=== PATIENT | male | born 1950 | race African-American/Black ===

== ENCOUNTER 2016-05-01 11:18 | Emergency (ER) | payer MEDICARE ==
[2016-02-14 11:40] VITALS: BMI 27.0
[~2016-05-01 11:18] MED LIST: ADVIL200 MG PO; BUMEX 1 MG TAB1 MG PO; HYDROCODONE-APA1 TAB PO; IPRAT-ALBUT 0.5-3 ML; K-DUR20 MEQ PO; LANOXIN250 MCG PO; LANTUS INSULIN10 ML SC; LASIX40 MG PO; LEVAQUIN500 MG PO; LOTENSIN40 MG PO; MIRALAX17 GM PO; MUCINEX1200 MG/BO PO; NORVASC5 MG PO; PRAVACHOL80 MG PO; PRILOSEC20 MG PO; PROAIR HFA8.5 GM INH; PROVENTIL/2.5 MG/3 M NEB; ULTRAM50 MG PO
[2016-05-01 12:16] LABS: BASOPHILS 0.2 % (0.0-2.0); EOSINOPHILS 0.1 % (0-7); HEMATOCRIT 48.4 % (42.0-54.0); IMMATURE GRANULOCYTES 0.3 % (0-5); LYMPHOCYTES 10.9 % (15-50); MCH 31.2 pg (26.0-34.0); MCHC 33.1 g/dL (31.0-37.0); MCV 94.3 fL (80.0-100.0); MEAN PLATELET VOLUME 10.3 fL (7.4-10.4); MONOCYTES 6.6 % (2-11); NEUTROPHILS 81.9 % (40-80); PLATELET COUNT 209 10x3/uL (130-400); RBC 5.13 10x6/uL (4.20-6.10); RDW 14.4 % (11.5-14.5)
[2016-05-01 12:29] LABS: ALBUMIN 3.9 g/dL (3.4-5.0); ALKALINE PHOSPHATASE 67 U/L (46-116); ALT (SGPT) 17 U/L (10-68); AMYLASE - SERUM 61 U/L (25-115); BILIRUBIN - TOTAL 1.23 mg/dL (0.2-1.3); CALC OSMOLALITY 285 mosm/kg (275-300); CALCIUM 9.6 mg/dL (8.5-10.1); CARBON DIOXIDE 34.2 mmol/L (21.0-32.0); CHLORIDE - SERUM 102 mmol/L (98-107); GLUCOSE 100 mg/dL (74-106); LIPASE 96 U/L (73-393); POTASSIUM - SERUM 4.2 mmol/L (3.5-5.1); PROTEIN - SERUM 7.8 g/dL (6.4-8.2); SODIUM 144 mmol/L (136-145); UREA NITROGEN 11 mg/dL (7-18); eGFR NON AFRICAN AMERICAN 80 mL/min (90-120)
[2016-05-01 12:34] LABS: APPEARANCE CLEAR (CLEAR); BACTERIA FEW /hpf (NONE SEEN); BILIRUBIN NEGATIVE (NEGATIVE); COLOR DK YELLOW (YELLOW); EPITHELIAL CELLS OCC /hpf (0-5); GLUCOSE NEGATIVE (NEGATIVE); KETONE LARGE mg/dL (NEGATIVE); LEUKOCYTE ESTERASE TRACE (NEGATIVE); MUCUS >1+ /lpf (NONE SEEN); NITRITE NEGATIVE (NEGATIVE); PROTEIN NEGATIVE (NEGATIVE); RED CELLS - URINE RARE /hpf (0-5); SPECIFIC GRAVITY 1.015 (1.005-1.020); WHITE CELLS - URINE OCC /hpf (0-5)
[2016-05-01 14:29] LABS: PRO BNP 36 pg/mL (0-125)
[2016-05-01 14:42] LABS: TROPONIN-I < 0.017 ng/mL (0.000-0.060)
== END 2016-05-01 16:47 | disposition home or self-care (01) ==
LOC: D.ER 11:18
PROVIDERS: Emergency Medicine
DX: J44.1 Chronic obstructive pulmonary disease with (acute) exacerbation (principal); R11.10 Vomiting, unspecified; I10 Essential (primary) hypertension; I50.9 Heart failure, unspecified; E11.9 Type 2 diabetes mellitus without complications; Z79.4 Long term (current) use of insulin

== ENCOUNTER → 2016-06-01 09:59 | Outpatient (CLI) | payer MEDICARE ==
[2016-02-14 11:40] VITALS: BMI 27.0
== END | disposition home or self-care (01) ==
LOC: D.CT 09:59
DX: C34.90 Malignant neoplasm of unspecified part of unspecified bronchus or lung (principal)

== ENCOUNTER → 2016-07-24 09:00 | Outpatient (CLI) | payer MEDICARE ==
[2016-02-14 11:40] VITALS: BMI 27.0
== END | disposition home or self-care (01) ==
LOC: D.CT 09:00
DX: C34.90 Malignant neoplasm of unspecified part of unspecified bronchus or lung (principal)

== ENCOUNTER → 2016-09-26 07:51 | Outpatient (CLI) | payer MEDICARE ==
[2016-02-14 11:40] VITALS: BMI 27.0
== END | disposition home or self-care (01) ==
LOC: D.US 07:51
DX: R11.2 Nausea with vomiting, unspecified (principal); R10.11 Right upper quadrant pain

== ENCOUNTER 2016-09-28 19:21 | Inpatient (IN) | payer MEDICARE ==
[~2016-09-28] VITALS: Ht 170.2 cm; Wt 81.2 kg
--- NOTE | ~2016-09-28 | HEMODYNAMI ---
PATIENT:SYL BHAT MEDICAL RECORD: [id number] : 50 LOCATION: D.2208 ADMISSION DATE: 09/28/16 Generatedon:10/01/201614:16 Patient name: SYL BHAT Patient #: [id number] SSN: : Date of study: 10/01/2016 Page: Of Hemodynamic Procedure Report Patient Data Patient Demographics Procedure consent was obtained First Name: SYL Gender: Male Last Name: PERLITA : 1950 [facility] Initial: JORDON Age: 65 year(s) Patient #: [id number] Race: Black Additional ID: [id number] Contact details Address: [address] [place] [address] STREET State: [place] City: [facility] Zip code: [address] Past Medical History Allergies: No known allergies Admission Admission Data Admission Date: 09/28/2016 Admission Time: 21:55 Room #: D.2208 Weight (lbs.): 178 Weight (kg.): 80.74 Procedure Procedure Types Cath Procedure Peripheral Cath Diagnostic Procedure Cath Peripheral Biliary Percutaneous Biliary Int/Ext Drain Placement Procedure Description Procedure Date Procedure Date: 10/01/2016 Procedure Start Time: 12:47 Procedure Staff Name Function Becky Roy RT Hand Paster Becky Roy RT Monitor Perla Goldman RT Scrub Agapito Rodriguez MD Additional personnel Perla Lew RN Nurse Skinny Kebede MD Performing Physician Procedure Data Cath Procedure Fluoroscopy Diagnostic fluoroscopy Total fluoroscopy Time: time: 21.5 min 21.5 min Diagnostic fluoroscopy Total fluoroscopy dose: dose: 1061 mGy 1061 mGy Contrast Material Contrast Material Type Amount (ml) Isovue 300 85 Diagnostic catheters Device Type Used For End Catheter Placement Merit Impress KA 2 5Fr 40CM catheter Procedure Medications Medication Administration Route Dosage Oxygen NC 6 l/min Lidocaine 1% added to field 20 Heparin Flush Bag added to field 2 bags (1000units/500ml NS) 0.9% NaCl I.V. 100 ml/hr Hemodynamics Rest Heart Rate: 78 (bpm) Snapshots Pre Cath Intra NCS Post Cath Vital Signs Time Heart Resp SPO2 NIBP (mmHg) Rhythm Pain Sedation Rate (ipm) (%) Status Level (bpm) 12:03:34 80 0 96 139/84(114) NSR 0 (11) 10(A) , No pain 12:07:54 82 17 141/79(110) NSR 0 (11) 10(A) , No pain 12:12:10 83 22 97 142/83(117) NSR 0 (11) 10(A) , No pain 12:16:26 76 17 97 138/89(123) NSR 0 (11) 10(A) , No pain 12:20:46 80 22 98 144/83(116) NSR 0 (11) 10(A) , No pain 12:25:05 82 11 98 125/74(98) NSR 0 (11) 10(A) , No pain 12:29:19 84 12 95 111/67(93) NSR 0 (11) 10(A) , No pain 12:33:30 82 14 96 118/74(96) NSR 0 (11) 10(A) , No pain 12:37:44 81 14 97 114/76(86) NSR 0 (11) 10(A) , No pain 12:41:58 80 13 97 118/74(93) NSR 0 (11) 10(A) , No pain 12:46:12 81 14 97 112/64(90) NSR 0 (11) 10(A) , No pain 12:50:26 84 14 96 111/70(86) NSR 0 (11) 10(A) , No pain 12:54:32 88 11 93 103/71(86) NSR 0 (11) 10(A) , No pain 12:58:44 84 9 94 107/68(87) NSR 0 (11) 10(A) , No pain 13:02:58 79 19 96 105/65(80) NSR 0 (11) 10(A) , No pain 13:07:12 83 10 94 106/58(77) NSR 0 (11) 10(A) , No pain 13:11:32 71 7 98 58/47(53) NSR 0 (11) 10(A) , No pain 13:12:58 75 15 98 66/34(51) NSR 0 (11) 10(A) , No pain 13:17:06 56 12 99 69/33(49) NSR 0 (11) 10(A) , No pain 13:21:14 58 9 97 53/39(50) NSR 0 (11) 10(A) , No pain 13:25:16 53 9 98 68/35(51) NSR 0 (11) 10(A) , No pain 13:30:04 60 11 98 61/37(54) NSR 0 (11) 10(A) , No pain 13:34:08 54 13 98 67/37(53) NSR 0 (11) 10(A) , No pain 13:38:16 58 13 97 56/29(44) NSR 0 (11) 10(A) , No pain 13:42:17 53 12 96 59/34(44) NSR 0 (11) 10(A) , No pain 13:46:21 55 13 94 54/32(43) NSR 0 (11) 10(A) , No pain 13:50:23 52 14 92 60/33(45) NSR 0 (11) 10(A) , No pain 13:54:29 47 23 96 48/34(39) NSR 0 (11) 10(A) , No pain 13:58:28 61 16 95 63/35(42) NSR 0 (11) 10(A) , No pain 14:02:34 54 18 96 58/37(48) NSR 0 (11) 10(A) , No pain 14:06:44 55 32 98 67/40(58) NSR 0 (11) 10(A) , No pain 14:11:27 62 34 115/97(111) NSR 0 (11) 10(A) , No pain Medications Time Medication Route Dose Verified Delivered Reason Notes Effe ctiveness by by 12:23:58 Oxygen NC 6 Agapito Altman used for l/min Jennifer Rodriguez MD procedure 12:24:08 Lidocaine 1% added 20ml Perla Perla used for to vial Vipin Vipin procedure field RN RN 12:24:18 Heparin Flush added 2 Perla Perla used for Bag to bags Vipin Vipin procedure (1000units/500ml field RN RN NS) 12:24:56 0.9% NaCl I.V. 100 Perla Perla used for ml/hr Vipin Vipin vacation sales advisor alternative energy technician Log Time Note 11:39:23 Patient Weight : 178 kg 11:39:26 Time tracking: Regular hours 11:46:20 Signed procedure consent form obtained from patient. 11:46:28 H&P Date Dictated: 10/01/2016 Within 30 days and on chart.. 11:46:56 Pre-procedure instructions explained to patient. 11:46:57 Pre-op teaching completed and patient verbalized understanding. 11:47:00 Family unavailable. 11:47:21 Patient NPO since Midnight. 11:47:33 Patient allergic to No known allergies 11:47:44 Is patient on blood thinner?No 11:47:48 - 11:47:58 Use device set IR Diagnostic 11:47:59 Sterile Angiographic Pack opened to sterile field. 11:48:00 Bag Decanter opened to sterile field. 11:48:29 KIT, INTRODUCER ACCUSTICK II W/C opened to sterile field. 12:02:23 ECG and BP/O2 sat monitors applied to patient. 12:02:24 Vital chart was started 12:02:25 Baseline sample Acquired. 12:02:26 Full Disclosure recording started 12:02:27 - 12:11:04 see anesthesia notes for monitoring of patient during procedure 12:11:31 Right abdomen site verified by team. 12:11:37 Physical assessment completed. ASA score P 4 - A patient with severe systemic disease that is a constant threat to life as per Agapito Rodriguez MD. 12:11:43 Sedation plan: TIVA Propofol 12:23:58 Oxygen 6 l/min NC was administered by Agapito Rodriguez MD; used for procedure ; 12:24:08 Lidocaine 1% 20ml vial added to field was administered by Perla Lew RN; used for procedure; 12:24:18 Heparin Flush Bag (1000units/500ml NS) 2 bags added to field was administered by Perla Lew RN; used for procedure; 12:24:56 0.9% NaCl 100 ml/hr I.V. was administered by Perla Lew RN; used for procedure; 12:44:34 Physician arrived 12:46:48 --------ALL STOP TIME OUT------ 12:46:49 Final Timeout: patient, procedure, and site verified with staff and physician. All members of the team are in agreement. 12:47:04 Procedure started. 12:47:14 Local anesthetic to Abdominal area with Lidocaine 1% by Skinny Kebede MD.INITIAL ACCESS ONLY 13:02:19 CHIBA 22 X 15 needle opened to sterile field. 13:14:23 Terumo ANGLE 180L glide wire opened to sterile field. 13:18:47 Telelogos DOC .035 guide wire opened to sterile field. 13:19:21 A Merit Impress KA 2 5Fr 40CM catheter was advanced over the wire and used for . 13:29:06 CHIBA 22 X 15 needle opened to sterile field. 13:37:06 EV3 NITINOL .018 80CM guide wire opened to sterile field. 13:50:32 Terumo Angled SS 180cm glide wire opened to sterile field. 13:53:18 DILATOR, VESSEL 8/20 opened to sterile field. 13:53:19 DILATOR, VESSEL 10/20 opened to sterile field. 13:53:20 Cook BILIARY 10.2 FR drainage catheter opened to sterile field. 13:54:14 BAG, DRAINAGE EMPTY 600ML W/DENIS opened to sterile field. 13:55:40 STOPCOCK 3-WAY LARGE BORE opened to sterile field. 13:58:40 Procedure ended.(Physican Out) 13:59:01 Fluoroscopy time 21.50 minutes. 13:59:08 Fluoroscopy dose: 1061 mGy 13:59:08 Flurop Dose total: 1061 14:00:54 Contrast amount:Isovue 300 85ml. 14:00:56 Sharps counted by scrub and verified by RMarkelNMarkel 14:01:01 Procedure and supply charges have been captured, reviewed, submitted an d are correct. 14:03:31 Vital chart was stopped 14:03:35 Full Disclosure recording stopped Device Usage Item Name Manufacture Quantity Catalog Hospital Part Current Minimal Lot# / Number Charge Number Stock Stock Serial# Code Mora Mina [id number] 5 Angiographic Health Pack Bag Decanter Microtek 1 2001S [id number] 39638 [id number] 5 Medical Inc. KIT, [place] 1 [id number] 685402 009804 353879 5 INTRODUCER Scientific ACCUSTICK II W/C CHIBA 22 X Cook Medical 1 [id number] 937195 247198 5 15 needle Terumo ANGLE Terumo 1 [id number] 439049 161756 174222 5 180L glide wire Cook DOC Cook Medical 1 [id number] 686840 387595 5 [id number] .035 guide wire Merit Merit 1 [id number] 116043 746620 5 Impress KA 2 Medical 5Fr 40CM catheter EV3 NITINOL Ev3 1 [id number] 803853 967987 5 .018 80CM guide wire Terumo Terumo 1 [id number] 998695 448393 5 Angled SS 180cm glide wire DILATOR, Cook Medical 1 [id number] 590724 50340 864315 5 VESSEL 8/20 DILATOR, Cook Medical 1 L04250 222198 35672 421478 5 VESSEL 10/20 Cook BILIARY Cook Medical 1 [id number] 779263 373127 695478 5 10.2 FR drainage catheter BAG, Merit 1 [id number] 854938 741427 003997 5 DRAINAGE Medical EMPTY 600ML W/DENIS STOPCOCK Cook Medical 1 [id number] 252276 6042 828832 5 [id number] 3-WAY LARGE BORE Signature Audit [place] Stage Time Signature Unsigned Intra-Procedure 10/01/2016 Becky Roy RT(R) 2:03:29 PM RT(R) 10/01/2016 2:05:31 PM Intra-Procedure 10/01/2016 Becky Roy 2:16:17 PM RT(R) Signatures Monitor : Becky Roy RT Signature : Date : Time : [address] [place] [address]
--- NOTE | ~2016-09-28 | HEMODYNAMI ---
PATIENT:SYL BHAT MEDICAL RECORD: [id number] : 50 LOCATION:[place] D.2208 ADMISSION DATE: 09/28/16 Generatedon:10/12/201612:53 Patient name: SYL BHAT Patient #: [id number] SSN: : Date of study: 10/12/2016 Page: Of Hemodynamic Procedure Report Patient Data Patient Demographics Procedure consent was obtained First Name: SYL Gender: Male Last Name: PERLITA : 1950 [facility] Initial: JORDNO Age: 65 year(s) Patient #: [id number] Race: Black Additional ID: [id number] Contact details Address: [address] [place] [address] STREET State: [place] City: [facility] Zip code: [address] Past Medical History Allergies: No known allergies Admission Admission Data Admission Date: 09/28/2016 Admission Time: 21:55 Room #: D.2208 Weight (lbs.): 178 Weight (kg.): 80.74 Procedure Procedure Types Cath Procedure Peripheral Cath Diagnostic Procedure Cath Peripheral Liver Percutaneous Liver Biopsy Procedure Description Procedure Date Procedure Date: 10/12/2016 Procedure Start Time: 11:50 Procedure Staff Name Function Skinny Kebede MD Performing Physician Saleem Pyle RIG OPERATOR Additional personnel Nitin Almonte RT Scrub Shana Chandler RN Nurse Becky Roy RT Personal Financial Representative Becky Roy RT Monitor Procedure Data Cath Procedure Fluoroscopy Diagnostic fluoroscopy Total fluoroscopy Time: 7.5 time: 7.5 min min Diagnostic fluoroscopy Total fluoroscopy dose: 319 dose: 319 mGy mGy Contrast Material Contrast Material Type Amount (ml) Isovue 300 52 Hemodynamics Rest Heart Rate: 83 (bpm) Snapshots Pre Cath Intra NCS Post Cath Vital Signs Time Heart Resp SPO2 NIBP Rhythm Pain Sedation Rate (ipm) (%) (mmHg) Status Level (bpm) 11:24:27 77 11 100 99/67(83) NSR 0 (11) 10(A) , No pain 11:28:49 91 5 96 82/50(70) NSR 0 (11) 10(A) , No pain 11:32:53 87 2 97 83/60(65) NSR 0 (11) 10(A) , No pain 11:37:01 91 7 100 83/50(68) NSR 0 (11) 10(A) , No pain 11:41:09 92 7 100 77/52(67) NSR 0 (11) 10(A) , No pain 11:45:12 92 7 100 80/55(59) NSR 0 (11) 10(A) , No pain 11:49:18 92 7 100 81/52(60) NSR 0 (11) 10(A) , No pain 11:53:26 90 8 100 70/46(61) NSR 0 (11) 10(A) , No pain 11:57:21 85 13 100 84/68(74) NSR 0 (11) 10(A) , No pain 12:01:27 86 13 99 95/58(67) NSR 0 (11) 10(A) , No pain 12:05:37 74 14 100 82/56(64) NSR 0 (11) 10(A) , No pain 12:09:45 75 10 99 66/45(56) NSR 0 (11) 10(A) , No pain 12:13:45 71 11 99 83/53(66) NSR 0 (11) 10(A) , No pain 12:17:52 69 16 86 84/48(77) NSR 0 (11) 10(A) , No pain 12:22:01 72 12 99 80/52(67) NSR 0 (11) 10(A) , No pain 12:25:38 72 14 100 86/61(68) NSR 0 (11) 10(A) , No pain 12:29:33 72 17 100 84/53(70) NSR 0 (11) 10(A) , No pain 12:33:35 69 18 100 98/67(83) NSR 0 (11) 10(A) , No pain 12:37:45 72 18 100 94/59(79) NSR 0 (11) 10(A) , No pain 12:41:52 71 17 100 86/58(73) NSR 0 (11) 10(A) , No pain 12:45:58 73 16 100 90/58(74) NSR 0 (11) 10(A) , No pain 12:50:04 72 18 100 91/59(70) NSR 0 (11) 10(A) , No pain 12:51:44 72 22 100 87/63(73) NSR 0 (11) 10(A) , No pain Procedure Log Time Note 10:51:35 Patient Weight : 178 kg 11:15:38 Time tracking: Regular hours 11:22:44 Plan of Care:Hemodynamics will remain stable., Cardiac rhythm will remain stable., Comfort level will be maintained., Respiratory function will remain adequate., Patient/ family verbilizes understanding of procedure., Procedure tolerated without complication., Recovers from procedure without complications.. 11:23:07 Patient received from Med/Surg to IR Alert and oriented. Tansferred to table in Supine position. 11:23:11 Correct patient and procedure confirmed by team. 11:23:13 Signed procedure consent form obtained from patient. 11:23:15 ECG and BP/O2 sat monitors applied to patient. 11:23:16 Vital chart was started 11:23:17 Baseline sample Acquired. 11:23:19 Full Disclosure recording started 11:23:19 - 11:23:25 H&P Date Dictated: 10/12/2016 Within 30 days and on chart.. 11:23:29 Family unavailable. 11:23:32 Patient NPO since Midnight. 11:23:41 - 11:23:45 Use device set IR Diagnostic 11:23:47 Sterile Angiographic Pack opened to sterile field. 11:23:48 Bag Decanter opened to sterile field. 11:24:14 Cook BILIARY 10.2 FR drainage catheter opened to sterile field. 11:27:17 St Neto 10FR 23CM sheath opened to sterile field. 11:38:08 Terumo Angled SS 180cm glide wire opened to sterile field. 11:49:15 - 11:49:23 Physician arrived 11:49:39 --------ALL STOP TIME OUT------ 11:49:40 Final Timeout: patient, procedure, and site verified with staff and physician. All members of the team are in agreement. 11:50:10 Physical assessment completed. ASA score P 3 - A patient with severe systemic disease as per Saleem Pyle CRNA. 11:50:16 Sedation plan: TIVA Propofol 11:50:22 Procedure started. 11:50:30 Local anesthetic to Abdominal area with Lidocaine 1% by Skinny Kebede MD.INITIAL ACCESS ONLY 11:53:11 Terumo TORQUE DEVICE PLASTIC .038 opened to sterile field. 12:15:17 see anesthesia notes of monitoring of patient during procedure 12:17:12 several brush and forcep bx were taken 12:19:43 STOPCOCK 3-WAY LARGE BORE opened to sterile field. 12:23:01 BAG, DRAINAGE EMPTY 600ML W/DENIS opened to sterile field. 12:23:28 new biliary drain was placed 12:23:38 Procedure ended.(Physican Out) 12:24:00 Fluoroscopy time 07.50 minutes. 12:24:08 Flurop Dose total: 319 12:24:08 Fluoroscopy dose: 319 mGy 12:24:23 Contrast amount:Isovue 300 52ml. 12:24:25 Sharps counted by scrub and verified by RMarkelN. 12:27:24 Procedure and supply charges have been captured, reviewed, submitted an d are correct. 12:53:03 Vital chart was stopped Device Usage Item Name Manufacture Quantity Catalog Hospital Part Current Minimal Lot# / Number Charge Number Stock Stock Serial# Code Sterile Cardinal 1 [id number] [id number] 5 Angiographic Health Pack Bag Decanter Microtek 1 2002S 293293 82509 584960 5 Medical Inc. Cook BILIARY Cook Medical 1 [id number] 045901 153265 198771 5 10.[address] Neto [address] St Neto 1 940037 639729 520142 5 23CM sheath Terumo Terumo 1 [id number] 434581 001251 5 Angled SS 180cm glide wire Terumo [place] 1 TD01 501535 699121 848907 5 Curverider Scientific DEVICE PLASTIC .038 STOPCOCK Cook Medical 1 [id number] 788245 3674 285153 5 3-WAY LARGE BORE BAG, Merit 1 [id number] 439560 182146 033306 5 DRAINAGE Medical EMPTY 600ML W/DENIS Signature Audit [place] Stage Time Signature Unsigned Intra-Procedure 10/12/2016 Becky Roy 12:53:00 PM RT(R) Signatures Monitor : Becky Roy RT Signature : Date : Time : [address] [place] [address]
--- NOTE | ~2016-09-28 | HEMODYNAMI ---
PATIENT:SYL BHAT MEDICAL RECORD: [id number] : 50 LOCATION:D.MS [place]2208 ADMISSION DATE: 09/28/16 Generatedon:10/05/201613:20 Patient name: SYL BHAT Patient #: [id number] SSN: : Date of study: 10/05/2016 Page: Of Hemodynamic Procedure Report Patient Data Patient Demographics First Name: SYL Gender: Male Last Name: PERLITA : 1950 [facility] Initial: JORDON Age: 65 year(s) Patient #: [id number] Race: Black Additional ID: [id number] Contact details Address: [address] [place] [address] STREET State: [place] City: [facility] Zip code: [address] Past Medical History Allergies: No known allergies Admission Admission Data Admission Date: 09/28/2016 Admission Time: 21:55 Room #: D.2208 Weight (lbs.): 178 Weight (kg.): 80.74 Procedure Procedure Types Cath Procedure Peripheral Cath Diagnostic Procedure Miscellaneous Procedure Description Procedure Date Procedure Date: 10/05/2016 Procedure Start Time: 12:30 Procedure Staff Name Function Perla Goldman RT Scrub Nitin Almonte RT Monitor Skinny Kebede MD Performing Physician Shana Chandler RN Nurse Procedure Data Cath Procedure Fluoroscopy Diagnostic fluoroscopy Total fluoroscopy Time: 5.3 time: 5.3 min min Diagnostic fluoroscopy Total fluoroscopy dose: 122 dose: 122 mGy mGy Contrast Material Contrast Material Type Amount (ml) Isovue 300 28 Hemodynamics Rest Heart Rate: 83 (bpm) Snapshots Pre Cath Intra NCS Post Cath Vital Signs Time Heart Resp SPO2 NIBP Rhythm Pain Sedation Rate (ipm) (%) (mmHg) Status Level (bpm) 12:19:58 81 98 113/70(95) NSR 0 (11) 10(A) , No pain 12:24:06 82 98 108/75(96) NSR 0 (11) 10(A) , No pain 12:28:09 99 27 97 111/85(91) NSR 0 (11) 10(A) , No pain 12:32:21 101 19 93 101/63(75) NSR 0 (11) 10(A) , No pain 12:36:27 88 12 90 96/61(75) NSR 0 (11) 10(A) , No pain 12:40:35 85 12 90 89/54(69) NSR 0 (11) 10(A) , No pain 12:44:45 78 12 97 81/46(60) NSR 0 (11) 10(A) , No pain 12:48:50 80 12 76/47(55) NSR 0 (11) 10(A) , No pain 12:52:59 62 14 98 65/38(46) NSR 0 (11) 10(A) , No pain 12:57:02 74 11 99 72/40(55) NSR 0 (11) 10(A) , No pain 13:01:06 72 10 99 75/42(62) NSR 0 (11) 10(A) , No pain 13:05:11 73 9 97 74/44(57) NSR 0 (11) 10(A) , No pain 13:08:47 73 98 72/42(62) NSR 0 (11) 10(A) , No pain 13:10:35 72 0 97 69/48(58) NSR 0 (11) 10(A) , No pain 13:17:53 71 97 74/49(61) NSR 0 (11) 10(A) , No pain 13:20:11 70 97 80/50(63) NSR 0 (11) 10(A) , No pain Procedure Log Time Note 11:23:00 Patient Weight : 178 kg 12:08:38 Nitin Almonte RT (R) (CV) sent for patient. Start room use. 12:08:46 Time tracking: Regular hours 12:08:51 Plan of Care:Hemodynamics will remain stable., Cardiac rhythm will remain stable., Comfort level will be maintained., Respiratory function will remain adequate., Patient/ family verbilizes understanding of procedure., Procedure tolerated without complication., Recovers from procedure without complications.. 12:08:58 Patient received from Med/Surg to IR Alert and oriented. Tansferred to table in Supine position. 12:09:00 - 12:09:18 SEE ANESTHESIA FOR PRE PROCEDURE NOTE 12::20 - 12::27 Use device set IR Diagnostic 12:: Bag Decanter opened to sterile field. 12:: Sterile Angiographic Pack opened to sterile field. 12::49 Right abdomen area was prepped with chlora-prep and draped in sterile fashion 12::53 Vital chart was started 12::54 Baseline sample Acquired. 12:18:58 Rhythm: sinus rhythm 12:23:36 Zero performed for pressure channel P1 12:29:31 --------ALL STOP TIME OUT------ 12:29:32 Final Timeout: patient, procedure, and site verified with staff and physician. All members of the team are in agreement. 12:29:38 Right abdomen site verified by team. 12:29:43 Physical assessment completed. ASA score P 3 - A patient with severe systemic disease as per Skinny Kebede MD. 12:29:59 Sedation plan: TIVA Propofol 12:30:04 Full Disclosure recording started 12:30:04 Procedure started. 12:30:11 Local anesthetic to Abdominal area with Lidocaine 1% by Skinny Kebede MD.INITIAL ACCESS ONLY 12:31:52 Terumo Angled SS 180cm glide wire opened to sterile field. 12::53 STOPCOCK 3-WAY LARGE BORE opened to sterile field. 12:31:54 Cook BILIARY 10.2 FR drainage catheter opened to sterile field. 12:31:55 BAG, DRAINAGE EMPTY 600ML W/DENIS opened to sterile field. 12:49:46 St Neto 10FR 23CM sheath opened to sterile field. 12:49:50 St Neto 10FR 23CM sheath opened to sterile field. 12:57:45 Procedure ended.(Physican Out) 12:58:34 Fluoroscopy time 05.30 minutes. 12:58:38 Fluoroscopy dose: 122 mGy 12:58:38 Flurop Dose total: 122 12:58:49 Contrast amount:Isovue 300 28ml. 12:58:51 Sharps counted by scrub and verified by R.N. 12:58:53 Insertion/operative site no bleeding no hematoma. 12:59:00 Post Abdominal area:stable 12:59:05 Post-procedure physical assessment completed. ASA score P 3 - A patient with severe systemic disease as per Skinny Kebede MD. 12:59:08 Post procedure rhythm: unchanged. 12:59:20 Post procedure instruction explained to patient.Patient verbalizes understanding. 12:59:22 Procedure and supply charges have been captured, reviewed, submitted an d are correct. 13:04:52 Report given to Med/Surg. 13:04:59 Patient transfered to Med/Surg with Bed. 13:06:31 Vital chart was stopped 13:06:34 Full Disclosure recording stopped Device Usage Item Name Manufacture Quantity Catalog Hospital Part Current Minimal Lot# / Number Charge Number Stock Stock Serial# Code Sterile Cardinal 1 [id number] 5 Angiographic Health Pack Bag Decanter Microtek 1 2001S [id number] 46656 410839 5 Medical Inc. Terumo Terumo 1 [id number] 120832 105750 5 Angled SS 180cm glide wire STOPCOCK Cook Medical 1 [id number] 096016 7869 [id number] 5 [id number] 3-WAY LARGE BORE Cook BILIARY Cook Medical 1 [id number] 292871 982805 022702 5 [id number] 10.2 FR drainage catheter BAG, Merit 1 [id number] 279389 959839 5 DRAINAGE Medical EMPTY 600ML W/DENIS St Neto 10FR St Neto 2 [id number] 563651 [id number] 5 23CM sheath Signature Audit [place] Stage Time Signature Unsigned Intra-Procedure 10/05/2016 Nitin Taveras Shuffield RT 1:06:29 PM Shuffield RT (R) (CV) 10/05/2016 (R) (CV) 1:07:41 PM Intra-Procedure 10/05/2016 Nitin 1:20:49 PM Suzy RT (R) (CV) Signatures Monitor : Nitin Signature : Suzy RT Date : Time : [address] [place] [address]
[2016-09-28 20:30] LABS: HEMATOCRIT 41.5 % (42.0-54.0); HEMOGLOBIN 15.6 g/dL (13.5-17.5); MCH 30.6 pg (26.0-34.0); MCHC 37.6 g/dL (31.0-37.0); MCV 81.4 fL (80.0-100.0); PLATELET COUNT 340 10x3/uL (130-400); RDW 19.5 % (11.5-14.5); WBC 22.9 10x3/uL (4.8-10.8)
[2016-09-28 20:49] LABS: ALBUMIN 2.5 g/dL (3.4-5.0); ALKALINE PHOSPHATASE 515 U/L (46-116); ALT (SGPT) 138 U/L (10-68); AMYLASE - SERUM 43 U/L (25-115); CALC OSMOLALITY 278 mosm/kg (275-300); CARBON DIOXIDE 38.1 mmol/L (21.0-32.0); CHLORIDE - SERUM 92 mmol/L (98-107); GLUCOSE 140 mg/dL (74-106); LIPASE 52 U/L (73-393); SODIUM 138 mmol/L (136-145); UREA NITROGEN 15 mg/dL (7-18); eGFR NON AFRICAN AMERICAN 80 mL/min (90-120)
[2016-09-28 20:50] LABS: BILIRUBIN - TOTAL 33.62 mg/dL (0.2-1.3); PROTEIN - SERUM 6.7 g/dL (6.4-8.2)
[2016-09-28 20:52] LABS: POTASSIUM - SERUM 2.4 mmol/L (3.5-5.1)
[2016-09-28 21:50] LABS: LYMPHOCYTES 6 % (15-50); NEUTROPHILS 94 % (40-80); PLATELET ESTIMATE NORMAL
[2016-09-28 23:56] VITALS: BP 105/71; BMI 28.1
--- NOTE | 2016-09-29 | NUR ---
PATIENT RECEIVED TO ROOM FROM ER VIA WHEELCHAIR WITH HOSPITAL STAFF. AAOX4. RR EVEN AND UNLABORED. O2 @ 2L VIA NC. 0 S/S OF DISTRESS. STATES PAIN IS AN 8/10. INITIATED MORPHINE MANAGER PRODUCTION PER ORDER. IV TO LEFT AC PATENT WITH NO REDNESS OR SWELLING. ORIENTED PATIENT TO ROOM, CALL LIGHT, AND MANAGER PRODUCTION. SRX2. BED LOW. CALL LIGHT WITHIN REACH.
[2016-09-29 04:00] VITALS: BP 90/60
--- NOTE | 2016-09-29 07:30 | NUR ---
RECIEVED PT DURING WALKING ROUNDS. PT RESTING IN BED WITH NO COMPLAINTS OF PAIN OR DISCOMFORT AT THIS TIME, WATERPROOFING MIXER IN USE. ASSESSMENT DONE PER FLOWSHEET. BED IN LOW POSITION AND CALL LIGHT WITHIN REACH. WILL CONTINUE TO MONITOR.
[2016-09-29 08:01] LABS: BASOPHILS 0.1 % (0-2); EOSINOPHILS 0 % (0-7); HEMATOCRIT 35.6 % (42.0-54.0); IMMATURE GRANULOCYTES 0.8 % (0-5); LYMPHOCYTES 6.2 % (15-50); MCH 29.7 pg (26.0-34.0); MCHC 36.5 g/dL (31.0-37.0); MCV 81.3 fL (80.0-100.0); MEAN PLATELET VOLUME 10.2 fL (7.4-10.4); MONOCYTES 8.8 % (2-11); NEUTROPHILS 84.1 % (40-80); PLATELET COUNT 286 10x3/uL (130-400); RBC 4.38 10x6/uL (4.20-6.10); RDW 19.8 % (11.5-14.5); WBC 19.6 10x3/uL (4.8-10.8)
[2016-09-29 08:10] LABS: CALC OSMOLALITY 278 mosm/kg (275-300); CALCIUM 8.1 mg/dL (8.5-10.1); CARBON DIOXIDE 36.3 mmol/L (21.0-32.0); CHLORIDE - SERUM 99 mmol/L (98-107); CREATININE - SERUM 0.7 mg/dL (0.6-1.3); GLUCOSE 101 mg/dL (74-106); SODIUM 139 mmol/L (136-145); UREA NITROGEN 14 mg/dL (7-18); eGFR NON AFRICAN AMERICAN > 90 mL/min (90-120)
--- NOTE | 2016-09-29 09:00 | NUR ---
RECIEVED ORDERS FROM DR. RDZ TO OBTAIN CONSENT FOR PROCEDURE, WILL BE BY TO DISCUSS PROCEDURE WITH PT AND FAMILY. WILL CONTINUE TO MONITOR.
[2016-09-29 09:32] VITALS: Ht 170.2 cm; Wt 81.2 kg
[2016-09-29 09:48] VITALS: BP 98/64
--- NOTE | 2016-09-29 11:30 | NUR ---
PT RETURNED TO ROOM AT THIS TIME FROM GI LAB, PT TOLERATED PROCEUDRE WELL. BED IN LOW POSITION AND CALL LIGHT WITHIN REACH. WILL CONTINUE TO MONITOR.
--- NOTE | 2016-09-29 11:30 | NUR ---
UNABLE TO COMPLETE PROPOSED ERCP, EGD WITH BIOPSY PERFORMED.
--- NOTE | 2016-09-29 19:00 | NUR ---
PATIENT IN BED WATCHING TV. HOB 30 DEGREES. AAOX4. RR EVEN AND UNLABORED. O2 @ 2L VIA NC. 0 S/S OF DISTRESS. STATES PAIN IS A 6/10. IV TO LEFT AC PATENT WITH NO REDNESS OR SWELLING. SRX2. BED LOW. CALL LIGHT WITHIN REACH.
--- NOTE | 2016-09-29 22:40 | NUR ---
NIGHTTIME MEDICATIONS ADMINISTERED. INITIATED PROTONIX DRIP PER ORDER. PUT SCD'S ON PATIENT. NO OTHER NEEDS AT THIS TIME.
[2016-09-29 23:14] VITALS: BP 93/59
--- NOTE | 2016-09-30 00:05 | NUR ---
MARY HELD FOR BS OF 106.
[2016-09-30 05:06] VITALS: BP 95/59
--- NOTE | 2016-09-30 07:30 | NUR ---
RECIEVED PT DURING WALKING ROUNDS, PT RESTING COMFORTABLY IN BED WITH NO COMPLAINTS OF PAIN OR DISCOMFORT AT THIS TIME. ASSESSMENT DONE PER FLOWSHEET. BED IN LOW POSITION AND CALL LIGHT WITHIN REACH. WILL CONTINUE TO MONITOR.
[2016-09-30 07:36] LABS: BASOPHILS 0.3 % (0-2); EOSINOPHILS 1.3 % (0-7); HEMATOCRIT 33.3 % (42.0-54.0); HEMOGLOBIN 12.1 g/dL (13.5-17.5); IMMATURE GRANULOCYTES 0.9 % (0-5); LYMPHOCYTES 8.4 % (15-50); MCH 29.5 pg (26.0-34.0); MCHC 36.3 g/dL (31.0-37.0); MCV 81.2 fL (80.0-100.0); MEAN PLATELET VOLUME 10.5 fL (7.4-10.4); NEUTROPHILS 81.1 % (40-80); PLATELET COUNT 280 10x3/uL (130-400); RDW 20.4 % (11.5-14.5)
[2016-09-30 07:37] LABS: WBC 14.1 10x3/uL (4.8-10.8)
[2016-09-30 08:01] LABS: ALKALINE PHOSPHATASE 402 U/L (46-116); ALT (SGPT) 108 U/L (10-68); BILIRUBIN - TOTAL 23.14 mg/dL (0.2-1.3); CALC OSMOLALITY 273 mosm/kg (275-300); CALCIUM 8.3 mg/dL (8.5-10.1); CARBON DIOXIDE 33.3 mmol/L (21.0-32.0); CHLORIDE - SERUM 102 mmol/L (98-107); CREATININE - SERUM 0.7 mg/dL (0.6-1.3); GLUCOSE 88 mg/dL (74-106); MAGNESIUM - SERUM 1.5 mg/dL (1.8-2.4); POTASSIUM - SERUM 3.4 mmol/L (3.5-5.1); PRO BNP 59 pg/mL (0-125); PROTEIN - SERUM 5.1 g/dL (6.4-8.2); SODIUM 138 mmol/L (136-145); UREA NITROGEN 11 mg/dL (7-18); eGFR NON AFRICAN AMERICAN > 90 mL/min (90-120)
[2016-09-30 08:03] LABS: ALBUMIN 1.8 g/dL (3.4-5.0)
[2016-09-30 09:11] VITALS: BP 88/52
--- NOTE | 2016-09-30 10:36 | PRO ---
PATIENT:SYL BHAT MEDICAL RECORD: [id number] : 50 LOCATION:D.MS [id number] ADMISSION DATE: 09/28/16 PROCEDURE PERFORMED BY: SRIKANTH SHAHID MD DATE OF PROCEDURE: 09/29/2016 JUNIOR ACCOUNTANT BOOKKEEPER: Srikanth Shahid MD. PROCEDURE: EGD with biopsy/attempted ERCP. INDICATION: The patient is a 65-year-old black male with a history of COPD on home oxygen, lung cancer diagnosed apparently in 2013, history of cardiac arrhythmias, CHF and apparently, he has had some type of esophageal rupture followed by Dr. Parmar and Dr. White in the past, who was basically admitted with obstructive jaundice in the ER with a total bili of 33, 1.9 cm common duct, and a 2.7 cm pancreatic mass. He also has some thickening in the distal esophagus with quite a bit of edema. He is now for ERCP attempt. PREMEDICATION: Taper anesthesia. INSTRUMENT: Olympus video ERCP scope and gastroscope. FINDINGS: The ERCP scope was passed through the oropharynx to the distal esophagus. At that point, the scope could not pass further into the stomach because of a definite stenosis present right before the GE junction. The esophagus looked extremely inflamed and ulcerated and there was definitely some mass-like tissue that was very friable in the distal esophagus. I could not tell whether this was an adherent blood clot, long tissue, carcinoma, etc. It was obstructing the esophagus, probably three-fourths of the diameter. There was also a definite fibrotic stenosis of the distal esophagus as well. Because of this, I needed to switch an ERCP scope to an EGD scope. I did this and I was able to pass the scope into the stomach and into the duodenum. The esophagus basically was completely ulcerated and the distal third to fourth esophagus was stenotic with this either adherent clot, long tissue, etc., partially obstructing esophagus. I took a small biopsy from this mass-like effect to send to pathology. I then passed the scope into the stomach and duodenum. The stomach had quite a bit of bloody fluid in it, which I suctioned up. The stomach otherwise was basically unremarkable other than a very inflamed prepyloric and pyloric channel with an inflammation and stenosis. I was able to pass scope into the duodenum, which revealed severe diffuse erosive duodenitis, probably due to NSAIDs. Due to the severe inflammation of the esophagus as well as not knowing exactly what the distal esophageal pathology was, I felt it was much too dangerous to try to dilate this area, so I could pass the ERCP scope down to the stomach. I therefore aborted the procedure at that point. The patient tolerated the procedure well without any immediate complications. IMPRESSION: 1. Aborted attempted ERCP as noted above. 2. Markedly ulcerated esophagus throughout with distal esophageal stenosis, with marked friability, regularity and mass type of effect of unclear etiology, rule out adherent blood clot, long tissue, esophageal carcinoma, etc. Of note is that this patient apparently had some type of esophageal rupture/perforation back several years ago followed by Dr. Parmar and Dr. White. I have no PROCEDURE NOTE [id number] SYL BHAT idea if this is related to today's findings or not. Now status post biopsy. 3. An inflamed prepyloric and pyloric channel with stenosis probably causing component of partial gastric outlet obstruction. 4. Severe erosive duodenitis, probably due to NSAIDs. 5. Otherwise, normal EGD. RECOMMENDATIONS: 1. CT directed biopsy of the pancreatic mass. 2. Percutaneous transhepatic cholangiogram. 3. Follow up biopsy results. 4. Protonix drip. 5. Carafate elixir. 6. Nystatin suspension. 7. Check a CA 19-9. 8. Poor prognosis. TRANSINT:[id number] Voice Confirmation ID: [id number] DOCUMENT ID: [id number] SRIKANTH SHAHID MD at 1036 CC: GENEVIEVE WHITE MD and MARE CUNNINGHAM MD [id number] DICTATION DATE: 09/29/16 1148 NUMEROLOGIST: 09/29/16 1336 ADM IN [facility] [address] [place] [address]
--- NOTE | 2016-09-30 10:36 | CN ---
PATIENT NAME:SYL BHAT MEDICAL RECORD: [id number] : 50 LOCATION:D.MS [facility]8 ADMIT DATE: 09/28/16 ACCOUNT: [id number] CONSULTING PHYSICIAN: SRIKANTH RDZ MD REFERRING PHYSICIAN: REGINALD LAMBERT MD DATE OF CONSULTATION: 09/29/2016 Gastroenterology Consultation REFERRING PHYSICIAN: Reginald Lambert MD. GASTROENTEROLOGISTS: Genevieve White MD/Lionel Eagle DO. HISTORY OF PRESENT ILLNESS: The patient is a 65-year-old black male with history of COPD on home oxygen, lung cancer diagnosed 2 or 3 years ago, hypertension, cardiac arrhythmias, CHF and diabetes, who basically was admitted through the ER with obstructive jaundice. Bilirubin is [address] of the abdomen revealed a dilated duct of about 2 cm of pancreatic mass. GI was asked to see the patient for possible ERCP. He has had some weight loss and vague abdominal pain. PAST MEDICAL HISTORY: As above. PAST SURGICAL HISTORY: Remarkable for pericardial fluid removal and Infusaport placement. ALLERGIES: No known drug allergies. HOME MEDICATIONS: Include amlodipine, potassium, albuterol, benazepril, digoxin, Lasix and insulin. FAMILY HISTORY: Negative for GI disease. SOCIAL HISTORY: The patient is a former smoker. Denies alcohol use. REVIEW OF SYSTEMS: Noncontributory other than HPI. PHYSICAL EXAMINATION: GENERAL: Reveals a thin, elderly black male, in no acute distress. VITAL SIGNS: Stable, afebrile. CHEST: Clear. HEART: Regular rate and rhythm. ABDOMEN: Soft, nontender. EXTREMITIES: No edema. LABORATORY DATA: Reveals a white count of 22,000, hematocrit 41 and platelet count 340,000. His potassium was 3.0, BUN 14 and creatinine 0.7. Total bili 33, AST 119, ALT 138, alkaline phosphatase 515 and albumin 2.5. Amylase and lipase are normal. Magnesium is 1.5. CT of the abdomen and pelvis reveals some circumferential wall thickening in the distal esophagus, cholelithiasis with a distended gallbladder, a 2.7-cm pancreatic mass and both intrahepatic and common bile duct dilation to almost 2 cm in size in the proximal portion. IMPRESSION: 1. Obstructive jaundice apparently due to pancreatic mass. CONSULT REPORT [id number] SYL BHAT 2. Thickening of the distal esophagus, rule out carcinoma. 3. History of lung cancer. 4. History of chronic obstructive pulmonary disease on home oxygen. 5. History of cardiac arrhythmias with congestive heart failure. RECOMMENDATION: 1. ERCP. 2. Probably needs a CT biopsy of his pancreatic mass and CA 19-9 level. TRANSINT:[id number] Voice Confirmation ID: [id number] DOCUMENT ID: [id number] SRIKANTH RDZ MD at 1036 CC: GENEVIEVE WHITE MD and REGINALD LAMBERT MD [id number] DICTATION DATE: 09/29/16 1101 PIN ATTACHER: 09/29/16 1158 ADM IN [facility] [address] [place] [id number]
[2016-09-30 12:20] VITALS: BP 94/52
[2016-09-30 16:23] VITALS: BP 82/49
--- NOTE | 2016-09-30 17:08 | HP ---
PATIENT: SYL BHAT MEDICAL RECORD: [id number] ACCOUNT: [id number] LOCATION:D.MS [id number] : 50 ADMISSION DATE: 09/28/16 HISTORY AND PHYSICAL EXAMINATION HISTORY OF PRESENT ILLNESS: This 65-year-old black male was admitted to the hospital for evaluation of difficulty swallowing and generalized abdominal pain. The patient has a history of a perforated esophagus in the past that has required surgical revision. He also was found to have several years ago an episode of lung cancer and has been treated with chemotherapy. Evidently, he was biopsied and was found to be nonsmall cell. He has been followed by hem/onc, Dr. Newton, on this. The patient has had a 3-week history of diarrhea. States he has had a gallstone and this has been causing his flareup with his present abdominal pain, but is having a difficult time with any kind with swallowing over the last 24 hours. The patient has not had any melena, hematochezia or hematemesis. No night sweats, states he is having some increasing pain in his back. He was admitted for IV fluids. CT scan was obtained and laboratory was reviewed. Dr. Curran has been consulted from the ER and took the patient for an EGD. The patient has had dilation of the esophagus several times. He was found to have a fungal type mass in the midline of the esophagus and on CAT scan, there was evidence of a 27-mm mass in the head of the pancreas which is suspicious for adenocarcinoma. The patient will be admitted for further evaluation. Hem/onc to be consulted. IV fluids, pain medicine to be utilized as well. PAST MEDICAL HISTORY: Significant for COPD, nonsmall cell lung cancer, chronic renal insufficiency, peptic ulcer disease, perforated esophagus, esophageal restriction in the past, hypertension, diabetes, arrhythmia, hypoxia, GERD, CHF. He had to have a pericardial window to be obtained. He also had no known drug allergies. MEDICATIONS: Listed in the MAR sheet which includes potassium, amlodipine, albuterol inhaler, Lotensin, Lanoxin, CHF, Lantus and albuterol. SOCIAL HISTORY: The patient is a former smoker, no alcohol use at the present time. PHYSICAL EXAMINATION: VITAL SIGNS: As below. GENERAL: He is a well-developed, well-nourished 65-year-old black male that is resting comfortably in no acute distress. HEENT: Pupils equal, round and reactive to light. Extraocular movements are intact. Oral cavity and oropharynx otherwise clear. NECK: No cervical or pharyngeal adenopathy. No nuchal rigidity. LUNGS: Coarse breath sounds heard bilaterally. HEART: Regular rate and rhythm with a I/ systolic ejection murmur. ABDOMEN: Distended, soft, nontender, positive bowel sounds. No guarding. He has got some mild rebound tenderness. No hepatosplenomegaly, no masses. EXTREMITIES: He has got minimal arthritic changes that are noted. NEUROLOGIC: He is able to move all 4 extremities. LABORATORY DATA: Shows white count 19,000, H&H of 13 and 35 and platelets of 286. He has got a potassium low at 3. He has got a CO2 retention of 36, calcium low at 8.1, elevated T-bili of 33 and liver functions elevated in the 130, ALT 120 on AST and lipase is minimally low at 52. CT abdomen and pelvis HISTORY AND PHYSICAL [id number] SYL BHAT showed a pancreatic mass that is present. ASSESSMENT: 1. Abdominal pain. 2. Fungal mass of the esophagus. 3. Dysphagia. 4. Pancreatic mass. 5. History of lung cancer. 6. Elevated bilirubin. 7. Low potassium. 8. Leukocytosis. 9. Hypertension. 10. Chronic obstructive pulmonary disease. PLAN: The patient will be admitted to the hospital. Hematology consultation with Dr. Newton. We will get GI followup on the present things, possible surgical evaluation on Saturday. Stabilize the patient. Check labratory appropriately. TRANSINT:[id number] Voice Confirmation ID: [id number] DOCUMENT ID: [id number] MARE CUNNINGHAM MD at 1708 CC: [id number] DICTATION DATE: 09/29/16 1237 COMPOUNDING SCALER: 09/29/16 1355 ADM IN [place] [id number] [place] [address]
[2016-09-30 19:00] VITALS: BP 110/66
--- NOTE | 2016-09-30 19:00 | NUR ---
PATIENT IN BED WATCHING TV. HOB 40 DEGREES. AAOX4. RR EVEN AND UNLABORED. O2 @ 2L VIA NC. 0 S/S OF DISTRESS. STATES PAIN IS A 5/10. IV TO LEFT AC PATENT WITH NO REDNESS OR SWELLING. SCD'S ON. SRX2. BED LOW. CALL LIGHT WITHIN REACH.
--- NOTE | 2016-09-30 22:00 | NUR ---
NIGHTTIME MEDICATIONS ADMINISTERED. HUMALOG HELD PER SS. IV TO LEFT AC OUT. RESISTED TO RIGHT FA.
[2016-10-01] VITALS (9 sets, daily range): BP systolic 74–120; BP diastolic 37–74
[2016-10-01 05:27] LABS: BASOPHILS 0.4 % (0-2); EOSINOPHILS 2.7 % (0-7); HEMATOCRIT 31.1 % (42.0-54.0); HEMOGLOBIN 11.4 g/dL (13.5-17.5); LYMPHOCYTES 12.8 % (15-50); MCH 29.8 pg (26.0-34.0); MCHC 36.7 g/dL (31.0-37.0); MCV 81.2 fL (80.0-100.0); MEAN PLATELET VOLUME 10.1 fL (7.4-10.4); MONOCYTES 10.1 % (2-11); PLATELET COUNT 263 10x3/uL (130-400); RBC 3.83 10x6/uL (4.20-6.10)
[2016-10-01 05:36] LABS: WBC 10.1 10x3/uL (4.8-10.8)
[2016-10-01 05:41] LABS: APTT 35.2 SECONDS (22.8-39.4); INR 1.64 (0.85-1.17); PROTIME 19.4 SECONDS (11.6-15.0)
[2016-10-01 05:47] LABS: ALBUMIN 1.7 g/dL (3.4-5.0); ALKALINE PHOSPHATASE 375 U/L (46-116); ALT (SGPT) 97 U/L (10-68); CALCIUM 7.8 mg/dL (8.5-10.1); CARBON DIOXIDE 29.8 mmol/L (21.0-32.0); CHLORIDE - SERUM 103 mmol/L (98-107); GLUCOSE 91 mg/dL (74-106); MAGNESIUM - SERUM 1.4 mg/dL (1.8-2.4); POTASSIUM - SERUM 3.2 mmol/L (3.5-5.1); PROTEIN - SERUM 4.8 g/dL (6.4-8.2); SODIUM 137 mmol/L (136-145)
[2016-10-01 05:48] LABS: CALC OSMOLALITY 271 mosm/kg (275-300); CREATININE - SERUM 0.5 mg/dL (0.6-1.3); UREA NITROGEN 7 mg/dL (7-18); eGFR NON AFRICAN AMERICAN > 90 mL/min (90-120)
--- NOTE | 2016-10-01 07:17 | NUR ---
PATIENT IN BED WITH EYES CLOSED RESTING QUIETLY AT THIS TIME. NO COMPLAINTS OR SIGNS OF DISTRESS. CALL LIGHT WITHIN REACH.
--- NOTE | 2016-10-01 10:21 | NUR ---
* Is the patient Alert and Oriented? Yes 0 * How many steps to enter\exit or inside your home? 0 0 * PCP [facility] 0 * [facility] [address] [facility] * Preadmission Environment Home with Family 0 * ADLs Partial Dependent 0 * Partial ADLs (Assistance needed) Medication Management 0 * Equipment Glucometer Oxygen 0 * List name and contact numbers for known caregivers / representatives who currently or will assist patient after discharge: BARB BHAT 0 * Community resources currently utilized None 0 * Please name any agencies selected above. [facility] 0 * Additional services required to return to the preadmission environment? No 0 * Can the patient safely return to the preadmission environment? Yes 0 * Has this patient been hospitalized within the prior 30 days at any hospital? No 0 Grand Total: 0 Patient Name: SYL BHAT Admission Status: ER Accout number: [id number] Admission Date: 09-28-2016 : 1950 Admission Diagnosis: Attending: SANGEETA Current LOS: 3 Anticipated DC Date: Planned Disposition: Home Primary Insurance: [employer] ADV Discharge Planning Comments: CM met with patient and (Barb) and mother to assess discharge planning needs. Patient lives at home with his where he plans to return too. His states that he is independent, but she helps him with his insulin. he has a glucometer and wears home O2. DME [facility]. At this time patient is denying any CM needs at this time. CM will continue to follow and assist as needed with discharge planning needs. PCP: [facility] [address] Barb [facility]hat () [phone] Customer Care Agent: Adriana Johnson
--- NOTE | 2016-10-01 12:15 | NUR ---
NUTRITION MONITORING & EVAL CHART REVIEWED, PT CURRENTLY NPO FOR PROCEDURE. WILL PROVIDE DIET WHEN RESUMED, MONITOR PO INTAKE. RD FOLLOWING
[2016-10-01 14:19] LABS: HEMATOCRIT 29.4 % (42.0-54.0); HEMOGLOBIN 10.7 g/dL (13.5-17.5)
--- NOTE | 2016-10-01 19:00 | NUR ---
PATIENT SLEEPING SUPINE IN BED. HOB 40 DEGREES. RR EVEN AND UNLABORED. O2 @ 2L VIA NC. 0 S/S OF DISTRESS. IV TO RIGHT FA PATENT WITH NO REDNESS OR SWELLING. BILI DRAIN TO RIGHT UPPER QUADRANT OF ABD. SCD'S IN ROOM BUT OFF. SRX2. BED LOW. CALL LIGHT WITHIN REACH.
[2016-10-02] VITALS: BP 101/60
[2016-10-02 04:00] VITALS: BP 99/58
[2016-10-02 06:14] LABS: BASOPHILS 0.4 % (0-2); EOSINOPHILS 1.7 % (0-7); HEMATOCRIT 32.5 % (42.0-54.0); HEMOGLOBIN 11.5 g/dL (13.5-17.5); IMMATURE GRANULOCYTES 3.5 % (0-5); LYMPHOCYTES 9.6 % (15-50); MCH 29.3 pg (26.0-34.0); MCHC 35.4 g/dL (31.0-37.0); MCV 82.9 fL (80.0-100.0); MEAN PLATELET VOLUME 10.6 fL (7.4-10.4); MONOCYTES 9.2 % (2-11); NEUTROPHILS 75.6 % (40-80); PLATELET COUNT 275 10x3/uL (130-400); RBC 3.92 10x6/uL (4.20-6.10); RDW 21.1 % (11.5-14.5); WBC 10.6 10x3/uL (4.8-10.8)
--- NOTE | 2016-10-02 07:00 | NUR ---
PT REC'D FROM KAYCE SIEGEL. RESTING IN BED WATCHING TV. AAOX4. NO COMPLAINTS OF PAIN. DRESSING TO RUQ DRAIN SITE FREE OF REDNESS AND SWELLING. APPROXIMATELY 25CC'S OF SANQUINOUS DRAINAGE TO BILIARY DRAIN COLLECTION BAG. NO ORDERS TO FLUSH DRAIN CURRENTLY. COFFEE PROVIDED. BED LOW, CALL LIGHT IN REACH, DENIES NEEDS. CPOC.
[2016-10-02 07:16] LABS: CREATININE - SERUM 0.6 mg/dL (0.6-1.3); GLUCOSE 94 mg/dL (74-106); MAGNESIUM - SERUM 1.6 mg/dL (1.8-2.4); SODIUM 139 mmol/L (136-145); UREA NITROGEN 6 mg/dL (7-18); eGFR NON AFRICAN AMERICAN > 90 mL/min (90-120)
[2016-10-02 07:17] LABS: ALBUMIN 1.6 g/dL (3.4-5.0); ALKALINE PHOSPHATASE 385 U/L (46-116); ALT (SGPT) 135 U/L (10-68); CALC OSMOLALITY 275 mosm/kg (275-300); CALCIUM 7.9 mg/dL (8.5-10.1); CARBON DIOXIDE 33.8 mmol/L (21.0-32.0); CHLORIDE - SERUM 103 mmol/L (98-107); POTASSIUM - SERUM 3.2 mmol/L (3.5-5.1); PROTEIN - SERUM 4.8 g/dL (6.4-8.2)
[2016-10-02 08:34] VITALS: BP 107/56
--- NOTE | 2016-10-02 09:08 | NUR ---
MORNING MEDS PASSED AT THIS TIME. BILIARY DRAIN FLUSHED WITH 10CC'S OF STERILE SALINE. TOLERATED WELL. PRN POTASSIUM ADMINISTERED PER ELECTROLYTE PROTOCOL. BED LOW, CALL LIGHT IN REACH, DENEIS NEEDS. CPOC.
[2016-10-02 12:06] VITALS: BP 110/71
--- NOTE | 2016-10-02 13:00 | NUR ---
PATIENT IN BED WITH NO COMPLAINTS AT THIS TIME. EYES OPEN WITH NO SIGNS OF DISTRESS. CALL LIGHT WITHIN REACH.
[2016-10-02 19:00] VITALS: BP 136/56
--- NOTE | 2016-10-02 20:00 | NUR ---
AWAKE,ALERT. NO COMPLAINTS VOICED. IV INFUSING TO RIGHT FOREARM WITHOUT REDNESS OR EDEMA NOTED.RESIDENT PROGRAMS ASSISTANT IN USE FOR PAIN CONTROL. BILLARY DRAIN INTACT TO RIGHT ABD AND DRAINING. CL IN REACH
[2016-10-03] VITALS: BP 123/75
--- NOTE | 2016-10-03 00:51 | NUR ---
PATIENT RESTING WITH EYES CLOSED AND NO VISIBLE SIGNS OF DISTRESS. BED IN THE LOWEST POSITION AND CALL LIGHT WITHIN REACH.
[2016-10-03 04:00] VITALS: BP 113/96
[2016-10-03 05:22] LABS: BASOPHILS 0.7 % (0-2); EOSINOPHILS 2.1 % (0-7); HEMATOCRIT 31.6 % (42.0-54.0); HEMOGLOBIN 11.5 g/dL (13.5-17.5); IMMATURE GRANULOCYTES 4.1 % (0-5); LYMPHOCYTES 9.9 % (15-50); MCH 29.6 pg (26.0-34.0); MCHC 36.4 g/dL (31.0-37.0); MCV 81.2 fL (80.0-100.0); MEAN PLATELET VOLUME 11.1 fL (7.4-10.4); NEUTROPHILS 73.2 % (40-80); PLATELET COUNT 285 10x3/uL (130-400); RBC 3.89 10x6/uL (4.20-6.10); WBC 10.5 10x3/uL (4.8-10.8)
--- NOTE | 2016-10-03 06:04 | NUR ---
AROUSES EASILY TO VERBAL STIMULI. NO COMPLAINTS VOICED. CL IN REACH
[2016-10-03 06:25] LABS: ALBUMIN 1.7 g/dL (3.4-5.0); ALKALINE PHOSPHATASE 368 U/L (46-116); ALT (SGPT) 118 U/L (10-68); CALC OSMOLALITY 272 mosm/kg (275-300); CARBON DIOXIDE 34.5 mmol/L (21.0-32.0); CHLORIDE - SERUM 102 mmol/L (98-107); CREATININE - SERUM 0.6 mg/dL (0.6-1.3); GLUCOSE 99 mg/dL (74-106); MAGNESIUM - SERUM 1.6 mg/dL (1.8-2.4); POTASSIUM - SERUM 3.6 mmol/L (3.5-5.1); PROTEIN - SERUM 5.1 g/dL (6.4-8.2); SODIUM 138 mmol/L (136-145); UREA NITROGEN 5 mg/dL (7-18); eGFR NON AFRICAN AMERICAN > 90 mL/min (90-120)
--- NOTE | 2016-10-03 07:53 | NUR ---
PT REC'D FROM PHYLLIS FERREIRA. RESTING IN BED WITH EYES CLOSED. RESP EVEN AND UNLABORED. NO SIGNS OF DISTRESS. BILIARY DRAIN TO RUQ WITH APPROXIMATELY 50CC'S OF DARK GREEN/BROWN FLUID. DRESSING TO DRAIN SITE CDI. BED LOW, CALL LIGHT IN REACH, CPOC.
[2016-10-03 08:44] VITALS: BP 116/72
--- NOTE | 2016-10-03 12:30 | NUR ---
PT SITTING UP IN BED AT THIS TIME WITH NO VISABLE SIGNS OF PAIN OR DISCOMFORT. PT EATING AND STATES NO COMPLAINTS. BED IN LOW POSITION AND CALL LIGHT WITHIN REACH. WILL CONTINUE TO MONITOR.
[2016-10-03 13:37] VITALS: BP 124/76
[2016-10-03 16:35] VITALS: BP 118/68
--- NOTE | 2016-10-03 19:15 | NUR ---
PATIENT IS RESTING IN BED WITH GUESTS AT BEDSIDE. PATIENT DENIES NEEDS AT THIS TIME. BED IN LOWEST POSITION AND CALL LIGHT WITHIN REACH. ENCOURAGED THE PATIENT TO CALL IF HE HAS NEEDS.
[2016-10-03 21:27] VITALS: BP 121/75
[2016-10-04] VITALS: BP 112/73
[2016-10-04 04:00] VITALS: BP 112/58
[2016-10-04 06:17] LABS: BASOPHILS 0.3 % (0-2); EOSINOPHILS 1.8 % (0-7); HEMATOCRIT 30.8 % (42.0-54.0); HEMOGLOBIN 11.2 g/dL (13.5-17.5); IMMATURE GRANULOCYTES 3.9 % (0-5); LYMPHOCYTES 8.9 % (15-50); MCH 29.5 pg (26.0-34.0); MCHC 36.4 g/dL (31.0-37.0); MCV 81.1 fL (80.0-100.0); MEAN PLATELET VOLUME 10.9 fL (7.4-10.4); MONOCYTES 9.6 % (2-11); NEUTROPHILS 75.5 % (40-80); PLATELET COUNT 261 10x3/uL (130-400); RDW 22.1 % (11.5-14.5); WBC 11.4 10x3/uL (4.8-10.8)
[2016-10-04 06:39] LABS: ALBUMIN 1.5 g/dL (3.4-5.0); ALKALINE PHOSPHATASE 334 U/L (46-116); ALT (SGPT) 92 U/L (10-68); BILIRUBIN - TOTAL 15.12 mg/dL (0.2-1.3); CALC OSMOLALITY 275 mosm/kg (275-300); CALCIUM 7.7 mg/dL (8.5-10.1); CARBON DIOXIDE 32.8 mmol/L (21.0-32.0); CHLORIDE - SERUM 102 mmol/L (98-107); GLUCOSE 102 mg/dL (74-106); MAGNESIUM - SERUM 1.6 mg/dL (1.8-2.4); POTASSIUM - SERUM 3.6 mmol/L (3.5-5.1); PROTEIN - SERUM 4.6 g/dL (6.4-8.2); SODIUM 139 mmol/L (136-145); UREA NITROGEN 6 mg/dL (7-18)
[2016-10-04 06:40] LABS: CREATININE - SERUM 0.4 mg/dL (0.6-1.3); eGFR NON AFRICAN AMERICAN > 90 mL/min (90-120)
[2016-10-04 07:45] VITALS: BP 143/74
--- NOTE | 2016-10-04 08:58 | NUR ---
PT SEEN THIS AM AT 0740. NO COMPLAINTS OF PAIN OR DISCOMFORT. BILIARY DRAIN TO RLQ WITH GREENISH/BROWN LIQ PRESENT. DRESSING CLEAN DRY AND INTACT. SCDS OFF AT PRESENT. ENCOURAGED TO HAVE PT UP IN CHAIR AT BEDSIDE. TODAY. CALL LIGHT IN REACH
[2016-10-04 12:08] VITALS: BP 138/66
[2016-10-04 15:41] VITALS: BP 127/67
[2016-10-04 20:00] VITALS: BP 117/66
--- NOTE | 2016-10-04 20:30 | NUR ---
AROUSES EASILY TO VERBAL STIMULI. ALERT ORIENTED. IV INFUSING TO RIGHT FOREARM WITHOUT REDNESS OR EDEMA NOTED. BILIARY DRAIN INTACT TO RIGHT ABD WIHT GREEN/BROWN DRAINAGE NOTED. DRSG TO SITE CDI. AUTOMOTIVE REPAIR TECHNICIAN MORPHINE IN USE FOR PAIN CONTROL. CL IN REACH
[2016-10-05] VITALS (9 sets, daily range): BP systolic 105–124; BP diastolic 64–85
--- NOTE | 2016-10-05 03:38 | NUR ---
PATIENT RESTING IN BED WITH EYES CLOSED AND NO VISIBLE SIGNS OF DISTRESS. BED IN LOWEST POSITION AND CALL LIGHT WITHIN REACH.
[2016-10-05 05:21] LABS: BASOPHILS 0.7 % (0-2); EOSINOPHILS 1.7 % (0-7); HEMATOCRIT 29.8 % (42.0-54.0); HEMOGLOBIN 10.7 g/dL (13.5-17.5); IMMATURE GRANULOCYTES 4.5 % (0-5); LYMPHOCYTES 10.1 % (15-50); MCH 29.3 pg (26.0-34.0); MCHC 35.9 g/dL (31.0-37.0); MCV 81.6 fL (80.0-100.0); MEAN PLATELET VOLUME 10.8 fL (7.4-10.4); MONOCYTES 10.8 % (2-11); NEUTROPHILS 72.2 % (40-80); PLATELET COUNT 274 10x3/uL (130-400); RBC 3.65 10x6/uL (4.20-6.10); RDW 22.5 % (11.5-14.5); WBC 11.5 10x3/uL (4.8-10.8)
[2016-10-05 05:27] LABS: INR 1.37 (0.85-1.17); PROTIME 16.8 SECONDS (11.6-15.0)
[2016-10-05 05:31] LABS: ALBUMIN 1.5 g/dL (3.4-5.0); ALKALINE PHOSPHATASE 283 U/L (46-116); ALT (SGPT) 86 U/L (10-68); CALC OSMOLALITY 269 mosm/kg (275-300); CALCIUM 7.7 mg/dL (8.5-10.1); CARBON DIOXIDE 33.6 mmol/L (21.0-32.0); CHLORIDE - SERUM 101 mmol/L (98-107); GLUCOSE 100 mg/dL (74-106); POTASSIUM - SERUM 3.7 mmol/L (3.5-5.1); PROTEIN - SERUM 5.1 g/dL (6.4-8.2); SODIUM 136 mmol/L (136-145); UREA NITROGEN 6 mg/dL (7-18)
[2016-10-05 05:32] LABS: CREATININE - SERUM 0.6 mg/dL (0.6-1.3); eGFR NON AFRICAN AMERICAN > 90 mL/min (90-120)
--- NOTE | 2016-10-05 05:42 | NUR ---
NO CHANGE IN ASSESSMENT. CL IN REACH
--- NOTE | 2016-10-05 07:30 | NUR ---
RECIEVED PT DURING WALKING ROUNDS. PT RESTING COMFORTABLY IN BED WITH NO COMPLAINTS OF PAIN OR DISCOMFORT AT THIS TIME. ASSESSMENT DONE PER FLOWSHEET. BED IN LOW POSITION AND CALL LIGHT WITHIN REACH. WILL CONTINUE TO MONITOR.
--- NOTE | 2016-10-05 10:55 | NUR ---
PT IV INFILTRATED AT THIS TIME, IV FLUIDS TURNED OFF. ATTEMPTED TO RESITE IV AT THIS TIME, UNSUCCESSFUL. CALL PLACED TO KAYCE TYLER, VASCULAR ACCESS NURSE. WILL CONTINUE TO MONITOR.
--- NOTE | 2016-10-05 11:30 | NUR ---
CONSENT SIGNED FOR PROCEDURE, PT TAKEN AT THIS TIME, INFORMED CAMI IN SPECIALS THAT PT DID NOT HAVE A WORKING IV. KAYCE TYLER ON THE UNIT AT THIS TIME AND IS FOLLOWING PT TO SPECIALS TO RESITE IV. AWAITING PT RETURN.
--- NOTE | 2016-10-05 13:12 | NUR ---
Nutrition Follow Up: Pt is currently NPO for cholangiogram today. Prior to this pt was eating 72% meal avg on a diabetic diet. +BM 10/03/16. Meds and labs reviewed. Rec resuming diet when medically feasible. RD following.
--- NOTE | 2016-10-05 14:20 | NUR ---
PT BACK FROM PROCEDURE, Q15 MINUTE VITALS INITIATED AT THIS TIME PER ORDER. PT BP WAS TRENDING LOW DURING RECOVERY, PT IS ASYMPTOMATIC AT THIS TIME. WILL CONTINUE TO MONITOR.
--- NOTE | 2016-10-05 19:00 | NUR ---
PATIENT SLEEPING SUPINE IN BED. HOB 30 DEGREES. AROUSES TO VOICE. RR EVEN AND UNLABORED. O2 @ 2L VIA NC. 0 S/S OF DISTRESS. STATES PAIN IS AN 8/10. IV TO LEFT WRIST PATENT WITH NO REDNESS OR SWELLING. BILI DRAIN TO RIGHT UPPER ABD. SCD'S IN ROOM BUT OFF. SRX2. BED LOW. CALL LIGHT WITHIN REACH.
--- NOTE | 2016-10-05 21:30 | NUR ---
NIGHTTIME MEDICATIONS ADMINISTERED. BILI DRAIN FLUSHED.
[2016-10-06] VITALS: BP 109/62
--- NOTE | 2016-10-06 00:55 | NUR ---
MARY HELD FOR BS OF 107.
[2016-10-06 04:00] VITALS: BP 93/58
[2016-10-06 04:57] LABS: BASOPHILS 0.4 % (0-2); EOSINOPHILS 0.9 % (0-7); HEMATOCRIT 30.5 % (42.0-54.0); HEMOGLOBIN 10.9 g/dL (13.5-17.5); IMMATURE GRANULOCYTES 3.3 % (0-5); LYMPHOCYTES 7.8 % (15-50); MCH 29.8 pg (26.0-34.0); MCHC 35.7 g/dL (31.0-37.0); MCV 83.3 fL (80.0-100.0); MEAN PLATELET VOLUME 10.9 fL (7.4-10.4); NEUTROPHILS 74.6 % (40-80); PLATELET COUNT 303 10x3/uL (130-400); RBC 3.66 10x6/uL (4.20-6.10); RDW 22.6 % (11.5-14.5); WBC 13.6 10x3/uL (4.8-10.8)
[2016-10-06 05:17] LABS: ALBUMIN 1.6 g/dL (3.4-5.0); ALKALINE PHOSPHATASE 273 U/L (46-116); ALT (SGPT) 90 U/L (10-68); BILIRUBIN - TOTAL 17.44 mg/dL (0.2-1.3); CALC OSMOLALITY 270 mosm/kg (275-300); CHLORIDE - SERUM 101 mmol/L (98-107); CREATININE - SERUM 0.5 mg/dL (0.6-1.3); GLUCOSE 110 mg/dL (74-106); PROTEIN - SERUM 5.4 g/dL (6.4-8.2); SODIUM 136 mmol/L (136-145); UREA NITROGEN 6 mg/dL (7-18); eGFR NON AFRICAN AMERICAN > 90 mL/min (90-120)
[2016-10-06 08:16] VITALS: BP 111/65
[2016-10-06 12:46] VITALS: BP 133/70
[2016-10-06 16:14] VITALS: BP 105/65
[2016-10-06 20:00] VITALS: BP 101/54
[2016-10-07] VITALS: BP 123/65
[2016-10-07 04:00] VITALS: BP 120/68
[2016-10-07 05:05] LABS: BASOPHILS 0.3 % (0-2); EOSINOPHILS 0.7 % (0-7); HEMATOCRIT 28.3 % (42.0-54.0); HEMOGLOBIN 10.2 g/dL (13.5-17.5); IMMATURE GRANULOCYTES 3.1 % (0-5); LYMPHOCYTES 11.3 % (15-50); MCH 30.2 pg (26.0-34.0); MCV 83.7 fL (80.0-100.0); MEAN PLATELET VOLUME 10.8 fL (7.4-10.4); MONOCYTES 13.9 % (2-11); NEUTROPHILS 70.7 % (40-80); PLATELET COUNT 296 10x3/uL (130-400); RBC 3.38 10x6/uL (4.20-6.10); RDW 23.1 % (11.5-14.5); WBC 13.1 10x3/uL (4.8-10.8)
[2016-10-07 05:23] LABS: ALBUMIN 1.5 g/dL (3.4-5.0); ALKALINE PHOSPHATASE 230 U/L (46-116); ALT (SGPT) 75 U/L (10-68); BILIRUBIN - TOTAL 18.11 mg/dL (0.2-1.3); CALC OSMOLALITY 273 mosm/kg (275-300); CALCIUM 7.9 mg/dL (8.5-10.1); CARBON DIOXIDE 33.7 mmol/L (21.0-32.0); CHLORIDE - SERUM 103 mmol/L (98-107); CREATININE - SERUM 0.5 mg/dL (0.6-1.3); GLUCOSE 96 mg/dL (74-106); PROTEIN - SERUM 5.2 g/dL (6.4-8.2); SODIUM 138 mmol/L (136-145); UREA NITROGEN 7 mg/dL (7-18); eGFR NON AFRICAN AMERICAN > 90 mL/min (90-120)
--- NOTE | 2016-10-07 07:00 | NUR ---
REPORT RECIEVED ASSUMED CARE. PATIENT IN BED WITH IV INTACT. NO COMPLAINTS. CALL LIGHT WITHIN REACH.
[2016-10-07 08:04] VITALS: BP 100/57
[2016-10-07 12:00] VITALS: BP 99/66
[2016-10-07 16:00] VITALS: BP 107/67
--- NOTE | 2016-10-07 18:50 | NUR ---
PATIENT IN BED WITH NO COMPLAINTS. IV INTACT. FAMILY AT BEDSIDE. CALL LIGHT WITHIN REACH.
--- NOTE | 2016-10-07 19:00 | NUR ---
PATIENT IN BED WATCHING TV. HOB 45 DEGREES. AAOX4. RR EVEN AND UNLABORED. O2 @ 2L VIA NC. 0 S/S OF DISTRESS. DENIES PAIN AT THIS TIME. IV TO RIGHT HAND PATENT WITH NO SWELLING. BILI DRAIN TO RIGHT UPPER ABD CDI. SCD'S IN ROOM BUT OFF. SRX2. BED LOW. CALL LIGHT WITHIN REACH.
[2016-10-07 20:00] VITALS: BP 118/70
--- NOTE | 2016-10-07 22:30 | NUR ---
NIGHTTIME MEDICATIONS ADMINISTERED. NO OTHER NEEDS AT THIS TIME.
[2016-10-08] VITALS: BP 131/71
--- NOTE | 2016-10-08 01:00 | NUR ---
MARY HELD FOR BS OF 117. PATIENT STATES PAIN IS A 5/10 AND IS REQUESTING PAIN MEDICATION BUT HE DOES NOT HAVE ANY ORDERED. SPOKE WITH TRAFFIC DIVISION COMMANDING OFFICER WHO STATED SHE WOULD TRY TO GET SOMETHING ORDERED.
--- NOTE | 2016-10-08 02:00 | NUR ---
ASSISTANT HVAC MECHANIC STATED SHE WAS UNABLE TO ACQUIRE AN ORDER FOR PAIN MEDICATION. EXPLAINED THIS TO PATIENT. HE STATED HE COULD "WAIT UNTIL MORNING." WILL PASS ON IN REPORT.
[2016-10-08 04:00] VITALS: BP 115/67
[2016-10-08 04:57] LABS: BASOPHILS 0.6 % (0-2); EOSINOPHILS 1.6 % (0-7); HEMATOCRIT 28.2 % (42.0-54.0); HEMOGLOBIN 9.8 g/dL (13.5-17.5); IMMATURE GRANULOCYTES 3.9 % (0-5); LYMPHOCYTES 12.1 % (15-50); MCH 29.2 pg (26.0-34.0); MCHC 34.8 g/dL (31.0-37.0); MCV 83.9 fL (80.0-100.0); MEAN PLATELET VOLUME 10.6 fL (7.4-10.4); MONOCYTES 12.2 % (2-11); NEUTROPHILS 69.6 % (40-80); PLATELET COUNT 313 10x3/uL (130-400); RBC 3.36 10x6/uL (4.20-6.10); RDW 23.6 % (11.5-14.5)
[2016-10-08 05:22] LABS: ALBUMIN 1.5 g/dL (3.4-5.0); ALKALINE PHOSPHATASE 228 U/L (46-116); ALT (SGPT) 82 U/L (10-68); BILIRUBIN - TOTAL 17.14 mg/dL (0.2-1.3); CALC OSMOLALITY 273 mosm/kg (275-300); CALCIUM 8.2 mg/dL (8.5-10.1); CARBON DIOXIDE 33.3 mmol/L (21.0-32.0); CHLORIDE - SERUM 102 mmol/L (98-107); CREATININE - SERUM 0.5 mg/dL (0.6-1.3); GLUCOSE 101 mg/dL (74-106); POTASSIUM - SERUM 4.2 mmol/L (3.5-5.1); PROTEIN - SERUM 5.5 g/dL (6.4-8.2); SODIUM 138 mmol/L (136-145); UREA NITROGEN 6 mg/dL (7-18); eGFR NON AFRICAN AMERICAN > 90 mL/min (90-120)
--- NOTE | 2016-10-08 07:25 | NUR ---
PATIENT RECEIVED ALERT IN LOW [place] POSITION. NO SIGNS OF DISTRESS NOTED. DENIES NEEDS. SIDE RAILS UP X2. BED IN LOW POSITION. CALL LIGHT IN REACH.
--- NOTE | 2016-10-08 08:25 | NUR ---
PATIENT ALERT IN HIGH [place] POSITION. NO SIGNS OF DISTRESS NOTED. SCHEDULED MEDICATION ADMINISTERED. DENIES NEEDS. SIDE RAILS UP X2. BED IN LOW POSITION. CALL LIGHT IN REACH.
[2016-10-08 09:35] VITALS: BP 120/61
--- NOTE | 2016-10-08 10:18 | NUR ---
PATIENT SITTING UP IN CHAIR ALERT. C/O PAIN 06/15. NORCO PER PRN ORDER. DENIES FURTHER NEEDS. CALL LIGHT IN REACH.
--- NOTE | 2016-10-08 11:35 | NUR ---
ACCU CHECK 91. NO INSULIN PER SLIDING SCALE. DENIES NEEDS. SIDE RAILS UP X2. BED IN LOW POSITION. CALL LIGHT IN REACH.
[2016-10-08 11:49] VITALS: BP 131/101
--- NOTE | 2016-10-08 14:30 | NUR ---
PATIENT IN MID HELTON POSITION RESTING WITH EYES CLOSED. RESPIRATIONS EVEN AND UNLABORED. SIDE RAILS UP X2. BED IN LOW POSITION. CALL LIGHT IN REACH.
[2016-10-08 16:29] VITALS: BP 116/68
[2016-10-08 20:00] VITALS: BP 103/63
--- NOTE | 2016-10-08 20:30 | NUR ---
PATIENT SITTING UP IN CHAIR WITH GUESTS AT BEDSIDE. PATIENT DENIES NEEDS AT THIS TIME AND CALL LIGHT IS WITHIN REACH. ENCOURAGED THE PATIENT TO CALL IF HE HAS NEEDS.
[2016-10-09] VITALS: BP 109/70
[2016-10-09 04:00] VITALS: BP 110/66
[2016-10-09 05:39] LABS: EOSINOPHILS 1.8 % (0-7); HEMATOCRIT 28.4 % (42.0-54.0); IMMATURE GRANULOCYTES 4.6 % (0-5); LYMPHOCYTES 14.1 % (15-50); MCH 29.9 pg (26.0-34.0); MCHC 35.2 g/dL (31.0-37.0); MEAN PLATELET VOLUME 10.3 fL (7.4-10.4); MONOCYTES 11.9 % (2-11); NEUTROPHILS 66.6 % (40-80); PLATELET COUNT 338 10x3/uL (130-400); RBC 3.34 10x6/uL (4.20-6.10); RDW 23.7 % (11.5-14.5); WBC 9.8 10x3/uL (4.8-10.8)
[2016-10-09 05:56] LABS: ALBUMIN 1.5 g/dL (3.4-5.0); ALKALINE PHOSPHATASE 222 U/L (46-116); ALT (SGPT) 97 U/L (10-68); BILIRUBIN - TOTAL 14.81 mg/dL (0.2-1.3); CALC OSMOLALITY 270 mosm/kg (275-300); CALCIUM 8.2 mg/dL (8.5-10.1); CARBON DIOXIDE 31.8 mmol/L (21.0-32.0); CHLORIDE - SERUM 102 mmol/L (98-107); CREATININE - SERUM 0.6 mg/dL (0.6-1.3); GLUCOSE 89 mg/dL (74-106); POTASSIUM - SERUM 4.3 mmol/L (3.5-5.1); PROTEIN - SERUM 5.5 g/dL (6.4-8.2); SODIUM 137 mmol/L (136-145); UREA NITROGEN 7 mg/dL (7-18); eGFR NON AFRICAN AMERICAN > 90 mL/min (90-120)
--- NOTE | 2016-10-09 07:15 | NUR ---
PATIENT RECEIVED IN LOW [place] POSITION. NO SIGNS OF DISTRESS NOTED. DENIES NEEDS. SIDE RAILS UP X2. BED IN LOW POSITION. CALL LIGHT IN REACH.
--- NOTE | 2016-10-09 08:48 | NUR ---
PATIENT ALERT IN BED EATING BREAKFAST. TOLERATING WELL. SCHEDULED MEDICATION ADMINISTERED. DENIES NEEDS. SIDE RAILS UP X1. BED IN LOW POSITION. CALL LIGHT IN REACH.
[2016-10-09 09:30] VITALS: BP 106/63
--- NOTE | 2016-10-09 11:27 | NUR ---
PATIENT SITTING UP IN CHAIR RESTING QUIETLY. NO SIGNS OF DISTRESS NOTED. ACCU CHECK 108. DENIES NEEDS. CALL LIGHT IN REACH.
[2016-10-09 13:54] VITALS: BP 106/68
--- NOTE | 2016-10-09 14:35 | NUR ---
PATIENT ALERT IN BED WATCHING TV. DENIES NEEDS. SIDE RAILS UP X2. BED IN LOW POSITION. CALL LIGHT IN REACH.
[2016-10-09 16:23] VITALS: BP 104/64
--- NOTE | 2016-10-09 17:32 | NUR ---
PATIENT ALERT IN BED EATING DINNER. TOLERATING WELL. ACCU CHECK 106. DENIES NEEDS. SIDE RAILS UP X2. BED IN LOW POSITION. CALL LIGHT IN REACH.
--- NOTE | 2016-10-09 19:57 | NUR ---
PATIENT RESTING IN BED AND DENIES NEEDS AT THIS TIME. BED IN LOWEST POSITION AND CALL LIGHT WITHIN REACH. ENCOURAGED THE PATIENT TO CALL IF HE HAS NEEDS.
[2016-10-09 20:00] VITALS: BP 106/67
[2016-10-10] VITALS: BP 121/66
[2016-10-10 04:00] VITALS: BP 102/60
[2016-10-10 05:46] LABS: BASOPHILS 0.7 % (0-2); EOSINOPHILS 1.6 % (0-7); HEMOGLOBIN 10.5 g/dL (13.5-17.5); IMMATURE GRANULOCYTES 4.1 % (0-5); LYMPHOCYTES 12.9 % (15-50); MCH 29.9 pg (26.0-34.0); MCV 85.5 fL (80.0-100.0); MEAN PLATELET VOLUME 10.5 fL (7.4-10.4); MONOCYTES 11.1 % (2-11); NEUTROPHILS 69.6 % (40-80); PLATELET COUNT 371 10x3/uL (130-400); RBC 3.51 10x6/uL (4.20-6.10); RDW 23.9 % (11.5-14.5); WBC 10.1 10x3/uL (4.8-10.8)
[2016-10-10 06:13] LABS: ALBUMIN 1.6 g/dL (3.4-5.0); ALKALINE PHOSPHATASE 230 U/L (46-116); ALT (SGPT) 109 U/L (10-68); BILIRUBIN - TOTAL 14.18 mg/dL (0.2-1.3); CALC OSMOLALITY 268 mosm/kg (275-300); CALCIUM 8.2 mg/dL (8.5-10.1); CARBON DIOXIDE 29.2 mmol/L (21.0-32.0); CHLORIDE - SERUM 101 mmol/L (98-107); CREATININE - SERUM 0.5 mg/dL (0.6-1.3); GLUCOSE 85 mg/dL (74-106); POTASSIUM - SERUM 4.3 mmol/L (3.5-5.1); PROTEIN - SERUM 5.9 g/dL (6.4-8.2); SODIUM 136 mmol/L (136-145); UREA NITROGEN 6 mg/dL (7-18); eGFR NON AFRICAN AMERICAN > 90 mL/min (90-120)
--- NOTE | 2016-10-10 07:10 | NUR ---
PATIENT RECEIVED IN MID HELTON POSITION RESTING WITH EYES CLOSED. RESPIRATIONS EVEN AND UNLABORED. SIDE RAILS UP X2. BED IN LOW POSITION. CALL LIGHT IN REACH.
[2016-10-10 08:06] VITALS: BP 113/71
[2016-10-10 09:08] LABS: INR 1.2 (0.85-1.17); PROTIME 15.1 SECONDS (11.6-15.0)
--- NOTE | 2016-10-10 09:18 | NUR ---
PATIENT UP TO RESTROOM WITHOUT ASSIST. NO SIGNS OF DISTRESS NOTED.
--- NOTE | 2016-10-10 11:35 | NUR ---
ALERT IN BED TALKING ON PHONE. NO SIGNS OF DISTRESS NOTED. ACCU CHECK 95. SIDE RAILS UP X2. BED IN LOW POSITION. CALL LIGHT IN REACH.
[2016-10-10 12:27] VITALS: BP 110/67
--- NOTE | 2016-10-10 14:10 | NUR ---
PATIENT IN MID HELTON POSITION RESTING WITH EYES CLOSED. RESPIRATIONS EVEN AND UNLABORED. SIDE RAILS UP X2. BED IN LOW POSITION. CALL LIGHT IN REACH.
[2016-10-10 15:52] VITALS: BP 124/70
--- NOTE | 2016-10-10 17:28 | NUR ---
ALERT IN BED EATING DINNER. TOLERATING WELL. ACCU CHECK 88. SIDE RAILS UP X2. BED IN LOW POSITION. CALL LIGHT IN REACH.
--- NOTE | 2016-10-10 19:59 | NUR ---
PATIENT RESTING IN BED AND REQUESTED PAIN MEDICATION FOR 3/10 PAIN. PATIENT DENIES OTHER NEEDS AT THIS TIME. BED IN LOWEST POSITION AND CALL LIGHT WITHIN REACH. ENCOURAGED THE PATIENT TO CALL IF HE HAS FURTHER NEEDS.
[2016-10-10 20:00] VITALS: BP 106/73
[2016-10-11] VITALS: BP 99/56
[2016-10-11 04:00] VITALS: BP 103/75
[2016-10-11 05:29] LABS: BASOPHILS 0.7 % (0-2); EOSINOPHILS 1.6 % (0-7); HEMOGLOBIN 10.4 g/dL (13.5-17.5); IMMATURE GRANULOCYTES 3.3 % (0-5); LYMPHOCYTES 14.3 % (15-50); MCHC 34.7 g/dL (31.0-37.0); MCV 86.5 fL (80.0-100.0); MEAN PLATELET VOLUME 9.9 fL (7.4-10.4); NEUTROPHILS 68.1 % (40-80); PLATELET COUNT 366 10x3/uL (130-400); RBC 3.47 10x6/uL (4.20-6.10); RDW 24.1 % (11.5-14.5); WBC 10.3 10x3/uL (4.8-10.8)
[2016-10-11 06:09] LABS: ALBUMIN 1.7 g/dL (3.4-5.0); ALKALINE PHOSPHATASE 224 U/L (46-116); ALT (SGPT) 115 U/L (10-68); CALC OSMOLALITY 267 mosm/kg (275-300); CALCIUM 8.1 mg/dL (8.5-10.1); CARBON DIOXIDE 28.7 mmol/L (21.0-32.0); CHLORIDE - SERUM 101 mmol/L (98-107); CREATININE - SERUM 0.6 mg/dL (0.6-1.3); GLUCOSE 91 mg/dL (74-106); POTASSIUM - SERUM 4.1 mmol/L (3.5-5.1); PROTEIN - SERUM 5.9 g/dL (6.4-8.2); SODIUM 135 mmol/L (136-145); UREA NITROGEN 7 mg/dL (7-18); eGFR NON AFRICAN AMERICAN > 90 mL/min (90-120)
--- NOTE | 2016-10-11 08:13 | NUR ---
PT SEEN AND ASSESSED. NO COMPLAINTS AT PRESENT. T TUBE DRAIN NOTED TO RLQ WITH GREEN/BROWN LIQ NOTED. PT STATES DRAINAGE HAS DECREASED. ENCOURAGED PT TO BE UP IN ROOM. CALL LIGHT IN REACH
[2016-10-11 08:26] VITALS: BP 103/65
[2016-10-11 12:46] VITALS: BP 108/63
--- NOTE | 2016-10-11 13:58 | NUR ---
NUTRITION MONITORING & EVAL CHART REVIEWED, PT UP IN CHAIR. TOLERATING ADA DIET WITH 75% AVERAGE MEAL INTAKE. RD FOLLOWING
[2016-10-11 16:11] VITALS: BP 95/59
[2016-10-11 20:00] VITALS: BP 122/77
[2016-10-12] VITALS: BP 112/66
--- NOTE | 2016-10-12 00:53 | NUR ---
ASSESSED, PT IS AWAKE USING THE URINAL AND STATED HE DID NOT NEED ANYTHING. NO DISTRESS NOTED. BED IS LOW, RAILS UP X'S 2 WITH THE CALL LIGHT AT HAND.
[2016-10-12 04:00] VITALS: BP 106/62
[2016-10-12 05:21] LABS: BASOPHILS 0.6 % (0-2); EOSINOPHILS 1.7 % (0-7); HEMATOCRIT 28.8 % (42.0-54.0); HEMOGLOBIN 9.9 g/dL (13.5-17.5); IMMATURE GRANULOCYTES 3.2 % (0-5); LYMPHOCYTES 13.7 % (15-50); MCH 30.1 pg (26.0-34.0); MCHC 34.4 g/dL (31.0-37.0); MCV 87.5 fL (80.0-100.0); MEAN PLATELET VOLUME 10.2 fL (7.4-10.4); MONOCYTES 10.8 % (2-11); PLATELET COUNT 368 10x3/uL (130-400); RBC 3.29 10x6/uL (4.20-6.10); RDW 24.6 % (11.5-14.5); WBC 10.4 10x3/uL (4.8-10.8)
[2016-10-12 05:29] LABS: APTT 37.1 SECONDS (22.8-39.4); INR 1.17 (0.85-1.17); PROTIME 14.8 SECONDS (11.6-15.0)
[2016-10-12 05:42] LABS: ALBUMIN 1.7 g/dL (3.4-5.0); ALKALINE PHOSPHATASE 213 U/L (46-116); ALT (SGPT) 117 U/L (10-68); BILIRUBIN - TOTAL 12.37 mg/dL (0.2-1.3); CALC OSMOLALITY 268 mosm/kg (275-300); CHLORIDE - SERUM 102 mmol/L (98-107); CREATININE - SERUM 0.7 mg/dL (0.6-1.3); GLUCOSE 91 mg/dL (74-106); POTASSIUM - SERUM 4.1 mmol/L (3.5-5.1); PROTEIN - SERUM 5.8 g/dL (6.4-8.2); SODIUM 135 mmol/L (136-145); eGFR NON AFRICAN AMERICAN > 90 mL/min (90-120)
[2016-10-12 05:45] LABS: UREA NITROGEN 9 mg/dL (7-18)
--- NOTE | 2016-10-12 07:00 | NUR ---
PT REC'D FROM PHYLLIS MENDOZA. RESTING IN BED WITH EYES CLOSED. NO SIGNS OF DISTRESS. RESP EVEN AND UNLABORED. APPROXIMATELY 150CC'S OF THICK GREEN FLUID EMPTIED FROM BILIARY DRAIN. BED LOW, CALL LIGHT IN REACH, DENIES NEEDS. CPOC.
[2016-10-12 07:37] VITALS: BP 102/66
--- NOTE | 2016-10-12 09:10 | NUR ---
PT AWAKE WITH FAMILY AT BEDSIDE. AAOX4. NO COMPLAINTS OF PAIN. REGULAR HEART RATE AND RHYTHM. LUNG SOUNDS CLEAR AND EQUAL BILAT. BOWEL SOUNDS HYPOACTIVE X4 QUADRANTS. DRESSING TO BILIARY DRAIN INSERTION SITE CDI. SCD'S OFF AT THIS TIME. BED LOW, CALL LIGHT IN REACH, DENIES NEEDS. CPOC.
--- NOTE | 2016-10-12 11:11 | NUR ---
CONSENTS OBTAINED AT THIS TIME. PT PREOP'D QUICKLY WELL. ESCORTED OUT VIA BED BY KAYCE ALMANZA.
--- NOTE | 2016-10-12 13:25 | NUR ---
PT REC'D BACK TO ROOM VIA BED. ACCOMPANIED BY KAYCE ALMANZA. AAOX4. RATING CURRENT PAIN IN ABD 08/15. PRN PAIN MEDICATION ADMINISTERED. WILL REASSESS. BILIARY DRAIN FLUSHED WITH EASE. DRESSING TO INSERTION SITE CDI. VSS. BED LOW, CALL LIGHT IN REACH, DENIES NEEDS. CPOC.
[2016-10-12 20:00] VITALS: BP 101/65
--- NOTE | 2016-10-12 23:14 | NUR ---
ASSESSED, PT IS DOSZING AND THE TV IS ON. RESPIRATIONS ARE EASY AND UNLABORED, NO DISTRESS NOTED. URINAL IS AT THE BEDSIDE. THE BED IS LOW, RAISLS UP X'S 2 WITH THE CALL LIGHT AT HAND.
[2016-10-13] VITALS: BP 91/58
[2016-10-13 04:00] VITALS: BP 86/45
[2016-10-13 04:40] LABS: BASOPHILS 0.4 % (0-2); EOSINOPHILS 0.7 % (0-7); HEMATOCRIT 29.3 % (42.0-54.0); IMMATURE GRANULOCYTES 3.1 % (0-5); MCH 30.3 pg (26.0-34.0); MCHC 34.1 g/dL (31.0-37.0); MCV 88.8 fL (80.0-100.0); MEAN PLATELET VOLUME 9.3 fL (7.4-10.4); MONOCYTES 11.2 % (2-11); NEUTROPHILS 73.6 % (40-80); PLATELET COUNT 320 10x3/uL (130-400); RDW 24.5 % (11.5-14.5); WBC 11.5 10x3/uL (4.8-10.8)
[2016-10-13 05:00] LABS: ALBUMIN 1.7 g/dL (3.4-5.0); ALKALINE PHOSPHATASE 192 U/L (46-116); ALT (SGPT) 123 U/L (10-68); CALC OSMOLALITY 267 mosm/kg (275-300); CALCIUM 7.9 mg/dL (8.5-10.1); CHLORIDE - SERUM 101 mmol/L (98-107); CREATININE - SERUM 0.7 mg/dL (0.6-1.3); GLUCOSE 97 mg/dL (74-106); POTASSIUM - SERUM 4.1 mmol/L (3.5-5.1); PROTEIN - SERUM 5.8 g/dL (6.4-8.2); SODIUM 135 mmol/L (136-145); UREA NITROGEN 8 mg/dL (7-18); eGFR NON AFRICAN AMERICAN > 90 mL/min (90-120)
--- NOTE | 2016-10-13 07:05 | NUR ---
PATIENT RECEIVED ALERT IN BED. NO SIGNS OF DISTRESS NOTED. SIDE RAILS UP X2. BED IN IN LOW POSITION. CALL LIGHT IN REACH.
[2016-10-13 07:54] VITALS: BP 95/53
--- NOTE | 2016-10-13 09:08 | NUR ---
PATIENT ALERT IN HIGH [place] POSITION. NO SIGNS OF DISTRESS NOTED. SCHEDULED MEDICATION ADMINISTERED. SIDE RAILS UP X2. BED IN LOW POSITION. CALL LIGHT IN REACH. DENIES NEEDS.
--- NOTE | 2016-10-13 11:32 | NUR ---
PATIENT SITTING UP IN CHAIR ALERT. ACCU CHECK 103. NO INSULIN PER SLIDING SCALE. DENIES NEEDS. CALL LIGHT IN REACH.
[2016-10-13 12:39] VITALS: BP 134/78
--- NOTE | 2016-10-13 13:13 | NUR ---
PATIENT ALERT IN BED WATCHING TV. NO SIGNS OF DISTRESS NOTED. SIDE RAILS UP X2. BED IN LOW POSITION. CALL LIGHT IN REACH.
[2016-10-13 15:30] VITALS: BP 112/69
--- NOTE | 2016-10-13 17:30 | NUR ---
ALERT IN BED. NO SIGNS OF DISTRESS NOTED. ACCU CHECK 94. DENIES NEEDS. BED IN LOW POSITION. CALL LIGHT IN REACH.
[2016-10-13 20:00] VITALS: BP 131/78
[2016-10-14] VITALS: BP 126/66
[2016-10-14 04:00] VITALS: BP 106/69
[2016-10-14 05:36] LABS: BASOPHILS 0.4 % (0-2); EOSINOPHILS 2.1 % (0-7); HEMATOCRIT 29.6 % (42.0-54.0); HEMOGLOBIN 9.9 g/dL (13.5-17.5); IMMATURE GRANULOCYTES 3.1 % (0-5); LYMPHOCYTES 13.6 % (15-50); MCH 29.8 pg (26.0-34.0); MCHC 33.4 g/dL (31.0-37.0); MCV 89.2 fL (80.0-100.0); MONOCYTES 13.1 % (2-11); NEUTROPHILS 67.7 % (40-80); PLATELET COUNT 351 10x3/uL (130-400); RBC 3.32 10x6/uL (4.20-6.10); RDW 24.7 % (11.5-14.5)
[2016-10-14 05:39] LABS: WBC 8.4 10x3/uL (4.8-10.8)
[2016-10-14 06:07] LABS: ALBUMIN 1.7 g/dL (3.4-5.0); ALKALINE PHOSPHATASE 198 U/L (46-116); ALT (SGPT) 124 U/L (10-68); CALC OSMOLALITY 268 mosm/kg (275-300); CALCIUM 8.1 mg/dL (8.5-10.1); CARBON DIOXIDE 26.7 mmol/L (21.0-32.0); CHLORIDE - SERUM 103 mmol/L (98-107); CREATININE - SERUM 0.6 mg/dL (0.6-1.3); GLUCOSE 82 mg/dL (74-106); POTASSIUM - SERUM 4.1 mmol/L (3.5-5.1); PROTEIN - SERUM 5.9 g/dL (6.4-8.2); SODIUM 136 mmol/L (136-145); UREA NITROGEN 6 mg/dL (7-18); eGFR NON AFRICAN AMERICAN > 90 mL/min (90-120)
--- NOTE | 2016-10-14 07:00 | NUR ---
PATIENT RECEIVED IN MID [place] POSITION RESTING QUIETLY. RESPIRATIONS EVEN AND UNLABORED. DENIES NEEDS. SIDE RAILS UP X2. BED IN LOW POSITION. CALL LIGHT IN REACH.
--- NOTE | 2016-10-14 08:07 | NUR ---
ALERT IN HIGH [place] POSITION. NO SIGNS OF DISTRESS NOTED. SCHEDULED MEDICATION ADMINISTERED. SIDE RAILS UP X2. BED IN LOW POSITION. CALL LIGHT IN REACH.
[2016-10-14 08:59] VITALS: BP 111/69
--- NOTE | 2016-10-14 10:10 | NUR ---
PATIENT RESTING QUIETLY WITH EYES CLOSED. RESPIRATIONS EVEN AND UNLABORED. SIDE RAILS UP X2. BED IN LOW POSITION. CALL LIGHT IN REACH.
[2016-10-14 11:30] VITALS: BP 124/68
--- NOTE | 2016-10-14 11:35 | NUR ---
ACCU CHECK 98. NO INSULIN PER SLIDING SCALE. DENIES NEEDS. SIDE RAILS UP X2. BED IN LOW POSITION. CALL LIGHT IN REACH.
[2016-10-14 15:11] VITALS: BP 116/72
--- NOTE | 2016-10-14 17:32 | NUR ---
ALERT IN BED. ACCU CHECK 152. PATIENT DENIES NEEDS. SIDE RAILS UP X2. BED IN LOW POSITION. CALL LIGHT IN REACH.
[2016-10-14 19:00] VITALS: BP 101/62
[2016-10-15] VITALS: BP 90/58
[2016-10-15 04:00] VITALS: BP 98/65
[2016-10-15 05:00] LABS: BASOPHILS 0.7 % (0-2); EOSINOPHILS 2.5 % (0-7); HEMATOCRIT 30.8 % (42.0-54.0); HEMOGLOBIN 10.5 g/dL (13.5-17.5); IMMATURE GRANULOCYTES 3.9 % (0-5); LYMPHOCYTES 14.5 % (15-50); MCH 30.9 pg (26.0-34.0); MCHC 34.1 g/dL (31.0-37.0); MCV 90.6 fL (80.0-100.0); MEAN PLATELET VOLUME 10.1 fL (7.4-10.4); MONOCYTES 12.6 % (2-11); NEUTROPHILS 65.8 % (40-80); PLATELET COUNT 364 10x3/uL (130-400); RDW 24.9 % (11.5-14.5); WBC 7.6 10x3/uL (4.8-10.8)
[2016-10-15 05:21] LABS: ALBUMIN 1.8 g/dL (3.4-5.0); ALKALINE PHOSPHATASE 201 U/L (46-116); ALT (SGPT) 135 U/L (10-68); BILIRUBIN - TOTAL 12.44 mg/dL (0.2-1.3); CALC OSMOLALITY 274 mosm/kg (275-300); CALCIUM 8.2 mg/dL (8.5-10.1); CARBON DIOXIDE 27.5 mmol/L (21.0-32.0); CHLORIDE - SERUM 106 mmol/L (98-107); CREATININE - SERUM 0.5 mg/dL (0.6-1.3); GLUCOSE 89 mg/dL (74-106); POTASSIUM - SERUM 4.3 mmol/L (3.5-5.1); PROTEIN - SERUM 6.2 g/dL (6.4-8.2); SODIUM 139 mmol/L (136-145); UREA NITROGEN 6 mg/dL (7-18); eGFR NON AFRICAN AMERICAN > 90 mL/min (90-120)
--- NOTE | 2016-10-15 07:05 | NUR ---
PATIENT RECEIVED ALERT IN BED. NO SIGNS OF DISTRESS NOTED. SIDE RAILS UP X2. BED IN LOW POSITION. CALL LIGHT IN REACH. DENIES NEEDS.
[2016-10-15 08:04] VITALS: BP 103/64
--- NOTE | 2016-10-15 08:13 | NUR ---
ALERT IN BED. NO SIGNS OF DISTRESS NOTED. SCHEDULED MEDICATION ADMINISTERED. DENIES NEEDS. SIDE RAILS UP X2. BED IN LOW POSITION. CALL LIGHT IN REACH.
--- NOTE | 2016-10-15 10:00 | NUR ---
PATIENT SITTING UP IN CHAIR ALERT. NO SIGNS OF DISTRESS NOTED. CALL LIGHT IN REACH.
[2016-10-15 11:35] VITALS: BP 97/68
--- NOTE | 2016-10-15 13:15 | NUR ---
PATIENT RESTING IN QUIETLY WITH EYES CLOSED. RESPIRATIONS EVEN AND UNLABORED. WAKES EASY. SCHEDULED MEDICATION ADMINISTERED. SIDE RAILS UP X2. BED IN LOW POSITION. CALL LIGHT IN REACH.
--- NOTE | 2016-10-15 14:49 | NUR ---
NUTRITION MONITORING & EVAL CHART REVIEWED, PT VISIT. TOLERATING DIABETIC DIET, 75 % INTAKE RECENT MEALS. RD FOLLOWING
[2016-10-15 15:19] VITALS: BP 104/59
--- NOTE | 2016-10-15 17:30 | NUR ---
ALERT IN HIGH [place] POSITION. ACCU CHECK 120. DENIES NEEDS. SIDE RAILS UP X2. BED IN LOW POSITION. CALL LIGHT IN REACH.
--- NOTE | 2016-10-15 19:20 | NUR ---
REC'D. IN BED FAMILY AT BEDSIDE.BILIARY DRAIN REMAINS INTACT WITH DK.GREENISH/BROWN DRAINAGE NOTED DENIES PAIN OR ANY OTHER DISCOMRT AT PRESENT TIME. WILL CONTINUE TO MONITOR FOR ANY CHGES. AND FOLLOW CURRENT PLAIN OF CARE.
[2016-10-15 20:56] VITALS: BP 98/67
[2016-10-16] VITALS: BP 100/62
[2016-10-16 04:00] VITALS: BP 180/62
[2016-10-16 05:23] LABS: BASOPHILS 0.5 % (0-2); EOSINOPHILS 2.6 % (0-7); HEMATOCRIT 30.8 % (42.0-54.0); HEMOGLOBIN 10.3 g/dL (13.5-17.5); LYMPHOCYTES 17.3 % (15-50); MCH 30.6 pg (26.0-34.0); MCHC 33.4 g/dL (31.0-37.0); MCV 91.4 fL (80.0-100.0); MEAN PLATELET VOLUME 9.8 fL (7.4-10.4); MONOCYTES 12.5 % (2-11); NEUTROPHILS 64.1 % (40-80); PLATELET COUNT 369 10x3/uL (130-400); RBC 3.37 10x6/uL (4.20-6.10); RDW 24.5 % (11.5-14.5); WBC 6.4 10x3/uL (4.8-10.8)
[2016-10-16 05:45] LABS: ALBUMIN 1.8 g/dL (3.4-5.0); ALKALINE PHOSPHATASE 189 U/L (46-116); ALT (SGPT) 141 U/L (10-68); BILIRUBIN - TOTAL 11.27 mg/dL (0.2-1.3); CALC OSMOLALITY 274 mosm/kg (275-300); CALCIUM 8.1 mg/dL (8.5-10.1); CARBON DIOXIDE 28.7 mmol/L (21.0-32.0); CHLORIDE - SERUM 105 mmol/L (98-107); CREATININE - SERUM 0.6 mg/dL (0.6-1.3); GLUCOSE 82 mg/dL (74-106); POTASSIUM - SERUM 4.3 mmol/L (3.5-5.1); PROTEIN - SERUM 6.1 g/dL (6.4-8.2); SODIUM 139 mmol/L (136-145); UREA NITROGEN 7 mg/dL (7-18); eGFR NON AFRICAN AMERICAN > 90 mL/min (90-120)
--- NOTE | 2016-10-16 07:30 | NUR ---
RECIEVED PT ON WALKINGF ROUNDS CARE ASSUMED AWAKE AND ALERT ORINTYED X 3 LUNGS CLAER BILATERALLY BILI DRAIN NOTYED TO LEFT FLANK URINE TEA COLORED. ALL ADLS PER STAFF ASSIST
[2016-10-16 08:08] VITALS: BP 107/69
[2016-10-16 12:00] VITALS: BP 108/68
--- NOTE | 2016-10-16 12:20 | NUR ---
PATIENT SITTING UP IN CHAIR AT THIS TIME AT BEDSIDE. NO COMPLAINTS OR PROBLEMS. NO SIGNS OF DISTRESS. CALL LIGHT WITHIN REACH.
--- NOTE | 2016-10-16 13:40 | NUR ---
PT AWAKE AND ALERT SITTING UP IN CHAIR AT BEDSIDE. CALL LIGHT IN REACH
[2016-10-16 16:32] VITALS: BP 115/50; BP 117/73
[2016-10-16 20:00] VITALS: BP 110/70
--- NOTE | 2016-10-16 20:20 | NUR ---
PATIENT IS AWAKE, ALERT AND ORIENTED X'S 4. RESPIRATIONS ARE EVEN AND UNLABORED ON ROOM AIR. NO SIGNS OF DISTRESS NOTED. PATIENT REQUESTED MILK. BROUGHT PATIENT A MILK. PATIENT DENIES FURTHER NEEDS AT THIS TIME. BED IN LOWEST POSITION, CALL LIGHT IN REACH. BED RAILS UP X'S 2.
--- NOTE | 2016-10-16 20:53 | NUR ---
AWAKE,ALERT,WATCHING TV QUIETLY. NO DISTRESS NOTED. IV INFUSING TO RIGHT HAND [id number] REDNESS OR EDEMA NOTED. BILLARY DRAIN PATENT AND DRAINING. FLUSHED PER ORDERS. NO COMPLAIINTS VOICED. CL IN REACH.
[2016-10-17] VITALS: BP 100/68
--- NOTE | 2016-10-17 01:54 | NUR ---
EYES CLOSED. RESP EVEN. NO DISTRESS NOTED. CL IN REACH
[2016-10-17 04:00] VITALS: BP 105/67
--- NOTE | 2016-10-17 05:42 | NUR ---
AWAKE WITH NO COMMPLIANTS. CL IN REACH.
[2016-10-17 05:50] LABS: BASOPHILS 0.8 % (0-2); EOSINOPHILS 3.1 % (0-7); HEMATOCRIT 31.9 % (42.0-54.0); HEMOGLOBIN 10.6 g/dL (13.5-17.5); LYMPHOCYTES 16.5 % (15-50); MCH 30.7 pg (26.0-34.0); MCHC 33.2 g/dL (31.0-37.0); MCV 92.5 fL (80.0-100.0); MEAN PLATELET VOLUME 9.4 fL (7.4-10.4); MONOCYTES 10.3 % (2-11); NEUTROPHILS 67.3 % (40-80); PLATELET COUNT 349 10x3/uL (130-400); RBC 3.45 10x6/uL (4.20-6.10); RDW 23.7 % (11.5-14.5); WBC 6.5 10x3/uL (4.8-10.8)
[2016-10-17 06:04] LABS: ALBUMIN 1.9 g/dL (3.4-5.0); ALKALINE PHOSPHATASE 190 U/L (46-116); ALT (SGPT) 147 U/L (10-68); BILIRUBIN - TOTAL 10.64 mg/dL (0.2-1.3); CALC OSMOLALITY 273 mosm/kg (275-300); CALCIUM 7.9 mg/dL (8.5-10.1); CARBON DIOXIDE 26.6 mmol/L (21.0-32.0); CHLORIDE - SERUM 106 mmol/L (98-107); CREATININE - SERUM 0.6 mg/dL (0.6-1.3); GLUCOSE 93 mg/dL (74-106); POTASSIUM - SERUM 4.3 mmol/L (3.5-5.1); PROTEIN - SERUM 6.3 g/dL (6.4-8.2); SODIUM 138 mmol/L (136-145); UREA NITROGEN 7 mg/dL (7-18); eGFR NON AFRICAN AMERICAN > 90 mL/min (90-120)
[2016-10-17 08:01] VITALS: BP 99/72
--- NOTE | 2016-10-17 08:05 | NUR ---
ASSESSMENT PER FLOW SHEET.PT WITHOUT DISTRESS.DENIES PAIN AT PRESENT.CALL LIGHT IN REACH,USE INSTRUCTED.
[2016-10-17 11:54] VITALS: BP 110/73
[2016-10-17 16:30] VITALS: BP 108/71
--- NOTE | 2016-10-17 18:46 | NUR ---
REMAINS WITHOUT DISTRESS.WITHOUT CHANGE FORM INITIAL SHIFT ASSESSMENT.CONT PLAN OF CARE.
[2016-10-17 19:00] VITALS: BP 133/75
--- NOTE | 2016-10-17 19:20 | NUR ---
REC'D SITTING UP IN BED. ALERT AND ORIENTED X4. DENIED PAIN AT THIS TIME. DENIED FURTHER NEEDS AT THIS TIME. BILLIARY DRAIN INTACT. HAD SIGN CONSENT FORMS FOR EGD IN AM. INSTRUCTED TO CALL IF NEEDED ANYTHING. VERBALIZED UNDERSTANDING. BED LOW, LOCKED, CALL LIGHT IN REACH. NO DISTRESS NOTED. WILL CONT TO MONITOR.
[2016-10-18 04:00] VITALS: BP 96/61
[2016-10-18 05:36] LABS: BASOPHILS 0.7 % (0-2); EOSINOPHILS 2.8 % (0-7); HEMATOCRIT 31.9 % (42.0-54.0); HEMOGLOBIN 10.7 g/dL (13.5-17.5); IMMATURE GRANULOCYTES 1.6 % (0-5); LYMPHOCYTES 18.2 % (15-50); MCH 31.2 pg (26.0-34.0); MCHC 33.5 g/dL (31.0-37.0); MONOCYTES 11.5 % (2-11); NEUTROPHILS 65.2 % (40-80); PLATELET COUNT 379 10x3/uL (130-400); RBC 3.43 10x6/uL (4.20-6.10); RDW 23.3 % (11.5-14.5)
--- NOTE | 2016-10-18 05:49 | NUR ---
EYES CLOSED RESPIRATIONS WITH EASE AND UNLABORED.
[2016-10-18 05:54] LABS: ALKALINE PHOSPHATASE 211 U/L (46-116); ALT (SGPT) 156 U/L (10-68); CALC OSMOLALITY 268 mosm/kg (275-300); CALCIUM 8.5 mg/dL (8.5-10.1); CARBON DIOXIDE 26.4 mmol/L (21.0-32.0); CHLORIDE - SERUM 102 mmol/L (98-107); CREATININE - SERUM 0.6 mg/dL (0.6-1.3); GLUCOSE 83 mg/dL (74-106); PROTEIN - SERUM 6.4 g/dL (6.4-8.2); SODIUM 136 mmol/L (136-145); UREA NITROGEN 7 mg/dL (7-18); eGFR NON AFRICAN AMERICAN > 90 mL/min (90-120)
--- NOTE | 2016-10-18 07:47 | NUR ---
NEW BAG OF IV FLUID SPIKED AT THIS TIME. IV TO RIGHT HAND PATENT AND RE-DRESSED FOR SECUREMENT. ASSESSMENT PERFORMED PER FLOWSHEET. BILI DRAIN TO RIGHT ABDOMEN PATENT. REMAINS NPO FOR EGD. CALL LIGHT IN REACH, DENIES NEEDS OR PAIN. WILL CONTINUE WITH PLAN OF CARE.
--- NOTE | 2016-10-18 08:48 | NUR ---
PRE OPERATIVE MEDICATIONS ADMINISTERED FOR EGD. FAMILY AT BEDSIDE. WILL CONITNUE WITH PLAN OF CARE.
--- NOTE | 2016-10-18 09:28 | NUR ---
TAKEN FOR EGD AT THIS TIME. WILL MONITOR PT WHEN HE RETURNS TO HIS ROOM.
[2016-10-18 12:23] VITALS: BP 112/70
[2016-10-18 16:33] VITALS: BP 107/65
[2016-10-18 20:00] VITALS: BP 94/65
[2016-10-19] VITALS: BP 104/67
--- NOTE | 2016-10-19 01:21 | NUR ---
PT SLEEPING. FSBS 137 AT MIDNIGHT. URINE IS DARK IN COLOR. BILI BAG DRAINING DARK GREEN FLUID. NO DISTRESS NOTED. WILL CONTINUE TO MONITOR.
[2016-10-19 04:00] VITALS: BP 91/63
[2016-10-19 05:05] LABS: BASOPHILS 0.7 % (0-2); EOSINOPHILS 2.6 % (0-7); HEMATOCRIT 31.5 % (42.0-54.0); HEMOGLOBIN 10.5 g/dL (13.5-17.5); IMMATURE GRANULOCYTES 1.3 % (0-5); LYMPHOCYTES 16.7 % (15-50); MCH 31.3 pg (26.0-34.0); MCHC 33.3 g/dL (31.0-37.0); MCV 93.8 fL (80.0-100.0); MEAN PLATELET VOLUME 9.4 fL (7.4-10.4); MONOCYTES 10.7 % (2-11); PLATELET COUNT 315 10x3/uL (130-400); RBC 3.36 10x6/uL (4.20-6.10); RDW 22.7 % (11.5-14.5); WBC 6.9 10x3/uL (4.8-10.8)
[2016-10-19 05:33] LABS: ALBUMIN 1.9 g/dL (3.4-5.0); ALKALINE PHOSPHATASE 192 U/L (46-116); ALT (SGPT) 157 U/L (10-68); BILIRUBIN - TOTAL 10.56 mg/dL (0.2-1.3); CALC OSMOLALITY 274 mosm/kg (275-300); CALCIUM 8.4 mg/dL (8.5-10.1); CARBON DIOXIDE 27.1 mmol/L (21.0-32.0); CHLORIDE - SERUM 105 mmol/L (98-107); CREATININE - SERUM 0.7 mg/dL (0.6-1.3); GLUCOSE 86 mg/dL (74-106); POTASSIUM - SERUM 4.3 mmol/L (3.5-5.1); PROTEIN - SERUM 6.3 g/dL (6.4-8.2); SODIUM 139 mmol/L (136-145); UREA NITROGEN 8 mg/dL (7-18); eGFR NON AFRICAN AMERICAN > 90 mL/min (90-120)
--- NOTE | 2016-10-19 07:50 | NUR ---
ASSESSMENT PER FLOW SHEET.PT DENIES NEEDS AT PRESENT.DENIES PAIN.CALL LIGHT IN REACH.
[2016-10-19 08:16] VITALS: BP 102/66
[2016-10-19 12:45] VITALS: BP 108/66
[2016-10-19 15:38] VITALS: BP 115/67
[2016-10-19 20:00] VITALS: BP 93/59
[2016-10-20] VITALS: BP 103/58
[2016-10-20 04:00] VITALS: BP 90/60
--- NOTE | 2016-10-20 04:32 | NUR ---
ASSESSED AT THE BAEGINNING OF THE SHIFT. PT IS ALERAT AND ORIENTED, ABLAE TO VERBALIZE NEEDS. HE HAS A BILIARY DRAIN TO THE RIGHT SIDE OF ABD AND WE ARE FLUSHING IT ORDERED. HE IS A LITTLE JAUNDICED, AND HIS URINE IS VERY DARK. THE URINAL STAYS BESIDE THE BED FOR HIM AND IF HE NEEDS TO GO TO THE BATHROOM HE CAN WALK. HE HAS NOT ASKED FOR MUCH OF ANYTHING BUT WHEN HIS BLOOD SUGAR WAS 88 AT BEDTIME WE GAVE HIM A SANDWICH SO HE WOULD NOT BOTTOM OUT DURING THE NIGHT. THE BED IS LOW, RAILS UP X'S 2 WITH THE CALL LIGHT AT HAND.
[2016-10-20 05:58] LABS: BASOPHILS 0.6 % (0-2); HEMATOCRIT 31.9 % (42.0-54.0); HEMOGLOBIN 10.7 g/dL (13.5-17.5); IMMATURE GRANULOCYTES 1.1 % (0-5); LYMPHOCYTES 16.7 % (15-50); MCH 31.6 pg (26.0-34.0); MCHC 33.5 g/dL (31.0-37.0); MCV 94.1 fL (80.0-100.0); MEAN PLATELET VOLUME 9.6 fL (7.4-10.4); MONOCYTES 11.2 % (2-11); NEUTROPHILS 67.4 % (40-80); PLATELET COUNT 316 10x3/uL (130-400); RBC 3.39 10x6/uL (4.20-6.10); RDW 22.1 % (11.5-14.5); WBC 6.4 10x3/uL (4.8-10.8)
[2016-10-20 06:21] LABS: ALKALINE PHOSPHATASE 192 U/L (46-116); ALT (SGPT) 157 U/L (10-68); CALC OSMOLALITY 273 mosm/kg (275-300); CALCIUM 8.7 mg/dL (8.5-10.1); CARBON DIOXIDE 29.4 mmol/L (21.0-32.0); CHLORIDE - SERUM 104 mmol/L (98-107); CREATININE - SERUM 0.6 mg/dL (0.6-1.3); GLUCOSE 92 mg/dL (74-106); POTASSIUM - SERUM 4.5 mmol/L (3.5-5.1); PROTEIN - SERUM 6.3 g/dL (6.4-8.2); SODIUM 138 mmol/L (136-145); UREA NITROGEN 7 mg/dL (7-18); eGFR NON AFRICAN AMERICAN > 90 mL/min (90-120)
[2016-10-20 08:23] VITALS: BP 105/66
[2016-10-20 12:01] VITALS: BP 110/64
[2016-10-20 20:00] VITALS: BP 114/73
[2016-10-21] VITALS: BP 119/69
[2016-10-21 04:00] VITALS: BP 100/64
--- NOTE | 2016-10-21 07:00 | NUR ---
REPORT RECIEVED ASSUMED CARE. AUNDREA TIN BED WITH I VINTACT. NO COMPLAINTS. CALL LIGHT WITHIN REACH.
[2016-10-21 08:24] VITALS: BP 91/58
[2016-10-21 12:57] VITALS: BP 107/66
[2016-10-21 15:58] VITALS: BP 105/69
--- NOTE | 2016-10-21 18:55 | NUR ---
PATIENT SITTING UP IN BED WITH NO COMPLAINTS AT THIS TIME. IV INTACT. CALL LIGHT WITHIN REACH.
[2016-10-21 20:00] VITALS: BP 115/71
--- NOTE | 2016-10-21 21:19 | NUR ---
REC'D SITTING UP IN BED. ALERT AND ORIENTED X4. NO DISTRESS NOTED. DENIED PAIN AT THIS TIME. IS WANTING JELLO. NO FURTHER NEEDS EXPRESSED. WILL ADMIN PM/AM MEDS PRESCRIBED. WILL BE NPO AFTER MIDNIGHT FOR SURGERY IN AM. WILL CONT TO MONITOR. INSTRUCTED TO CALL IF NEEDED ANYTHING, VERBLAIZED UNDERSTANDING. BED LOW, LOCKED, CALL LIGHT IN REACH.
[2016-10-22] VITALS: BP 106/73
--- NOTE | 2016-10-22 03:28 | NUR ---
RESTING COMFORTABLY. NO DISTRESS NOTED. WILL CONT TO MONITOR. IS NPO FOR PROCEDURE THIS AM. BED LOW, LOCKED, CALL LIGHT IN REACH.
--- NOTE | 2016-10-22 03:52 | NUR ---
EYES CLOSED RESPIRATIONS WITH EASE AND UNLABORED.
[2016-10-22 04:00] VITALS: BP 106/66
[2016-10-22 04:46] LABS: BASOPHILS 0.9 % (0-2); EOSINOPHILS 3.5 % (0-7); HEMATOCRIT 33.4 % (42.0-54.0); IMMATURE GRANULOCYTES 0.7 % (0-5); LYMPHOCYTES 21.2 % (15-50); MCH 31.5 pg (26.0-34.0); MCHC 32.9 g/dL (31.0-37.0); MCV 95.7 fL (80.0-100.0); MEAN PLATELET VOLUME 9.8 fL (7.4-10.4); MONOCYTES 10.4 % (2-11); NEUTROPHILS 63.3 % (40-80); PLATELET COUNT 329 10x3/uL (130-400); RBC 3.49 10x6/uL (4.20-6.10); RDW 21.1 % (11.5-14.5); WBC 5.8 10x3/uL (4.8-10.8)
[2016-10-22 05:04] LABS: INR 1.18 (0.85-1.17); PROTIME 14.8 SECONDS (11.6-15.0)
[2016-10-22 05:12] LABS: ALBUMIN 2.1 g/dL (3.4-5.0); ALKALINE PHOSPHATASE 181 U/L (46-116); ALT (SGPT) 150 U/L (10-68); BILIRUBIN - TOTAL 7.67 mg/dL (0.2-1.3); CALC OSMOLALITY 268 mosm/kg (275-300); CALCIUM 8.6 mg/dL (8.5-10.1); CARBON DIOXIDE 29.2 mmol/L (21.0-32.0); CHLORIDE - SERUM 103 mmol/L (98-107); CREATININE - SERUM 0.7 mg/dL (0.6-1.3); GLUCOSE 87 mg/dL (74-106); POTASSIUM - SERUM 4.7 mmol/L (3.5-5.1); PROTEIN - SERUM 6.3 g/dL (6.4-8.2); SODIUM 136 mmol/L (136-145); UREA NITROGEN 8 mg/dL (7-18); eGFR NON AFRICAN AMERICAN > 90 mL/min (90-120)
--- NOTE | 2016-10-22 07:00 | NUR ---
REPORT RECIEVED ASSUMED CARE. PATIENT IN BED WITH IV INTACT. NO COMPLAINTS. CALL LIGHT WITHIN REACH.
--- NOTE | 2016-10-22 07:00 | NUR ---
REPORT RECIEVED ASSUMED CARE. PATIENT IN BED WITH NO IV. NO COMPLAINTS OR SIGNS OF DISTRESS. CALL LIGHT WITHIN REACH.
[2016-10-22 08:09] VITALS: BP 103/60
--- NOTE | 2016-10-22 08:59 | NUR ---
PATIENT IV RESTARTED IN RIGHT ARM X 3 STICKS. PATIENT TOLERATED WITH SMALL AMOUNT OF PAIN. FAMILY AT BEDSIDE. CALL LIGHT WITHIN REACH.
--- NOTE | 2016-10-22 11:00 | NUR ---
PATIENT BACK TO ROOM AT THIS TIME. IV INTACT. VS STABLE. DRESSING SITE CLEAN AND DRY. EXPLAINED TO PATIENT WOULD HAVE TO MONITOR VS FOR AWHLE. VERBALIZED UNDERSTANDING. NO COMPLAINTS OF PAIN. DRESSING TO ABDOMEN CLEAN AND DRY. CALL LIGHT WITHIN REACH.
[2016-10-22] MEDS ORDERED: NYSTATIN ORAL SU5 ML PO (11:23)
[2016-10-22] MEDS ORDERED: MIRALAX17 GM PO (11:23)
[2016-10-22] MEDS ORDERED: PROTONIX40 MG PO (11:23)
[2016-10-22] MEDS ORDERED: CARAFATE1 G/10 ML PO (11:23)
[2016-10-22 11:33] VITALS: BP 117/72
--- NOTE | 2016-10-22 11:34 | NUR ---
Patient being discharged today after 2:00pm. Patient will be sent home with [facility] per patient choice. SKIP signed and IMM served. CM faxed information to [facility] with [facility]. CM will continue to follow and assist.
--- NOTE | 2016-10-22 12:00 | NUR ---
PATIENT SITTING UP EATING. NO COMPLAINTS, VS STABLE. IV INTACT. FAMILY AT BEDSIDE. CALL LIGHT WITHIN REACH.
--- NOTE | 2016-10-22 15:30 | NUR ---
PATIENT RECIEVED DISCHARGE INSTRUCTIONS. VERBALIZED UNDERSTANDING. NO QUESTIONS AT THIS TIME. FAMILY AT BEDSIDE. PRESCRIPTION GIVEN TO PATIENT. EXPLAINED TO PATIENT AND FAMILY MEMBER HOW TO FLUSH BILI DRAIN WHILE FLUSHING DRAIN. BOTH VERBALIZED UNDERSTANDING. DRESSING TO DRAIN CHANGED. CLEANED AROUND SITE WITH SOAP AND WATER AND NEW DRESSING APPLIED. DRESSING OVER CULTURE SITE CLEAN AND DRY AND INTACT. IV REMOVED WITH CATH TIP INTACT. DRAIN EMPTIED. NO COMPLAINTS AT THIS TIME. CALL LIGHT WITHIN REACH.
== END 2016-10-22 16:09 | disposition home health service (06) | DRG 435 ==
LOC: D.ER 19:21 → D.MS 21:55
PROVIDERS: Emergency Medicine; Family Medicine; General Practice; Internal Medicine Gastroenterology; Internal Medicine Hematology & Oncology; Nurse Practitioner Acute Care; Radiology Diagnostic Radiology; ADMIT Family Medicine
DX: C25.9 Malignant neoplasm of pancreas, unspecified (principal); K83.1 Obstruction of bile duct; K31.1 Adult hypertrophic pyloric stenosis; K22.10 Ulcer of esophagus without bleeding; K86.9 Disease of pancreas, unspecified; Z85.118 Personal history of other malignant neoplasm of bronchus and lung; J44.9 Chronic obstructive pulmonary disease, unspecified; Z99.81 Dependence on supplemental oxygen; I11.0 Hypertensive heart disease with heart failure; I50.9 Heart failure, unspecified; Z87.891 Personal history of nicotine dependence; E87.6 Hypokalemia; I95.9 Hypotension, unspecified; E11.43 Type 2 diabetes mellitus with diabetic autonomic (poly)neuropathy; K31.84 Gastroparesis

== ENCOUNTER → 2016-11-08 07:36 | Outpatient (CLI) | payer MEDICARE ==
[~2016-11-08] VITALS: Ht 170.2 cm; Wt 79.1 kg
--- NOTE | ~2016-11-08 | HEMODYNAMI ---
PATIENT:SYL BHAT MEDICAL RECORD: [id number] : 50 LOCATION:[facility] ADMISSION DATE: 11/08/16 Generatedon:11/08/201612:32 Patient name: SYL BHAT Patient #: [id number] SSN: : Date of study: 11/08/2016 Page: Of Hemodynamic Procedure Report Patient Data Patient Demographics Procedure consent was obtained First Name: SYL Gender: Male Last Name: PERLITA : 1950 [facility] Initial: JORDON Age: 65 year(s) Patient #: [id number] Race: Black Additional ID: [id number] Contact details Address: [address] [place] [address] [address] State: [place] City: [facility] Zip code: [address] Past Medical History Allergies: No known allergies Admission Admission Data Admission Date: 11/08/2016 Admission Time: 7:36 Procedure Procedure Types Cath Procedure Peripheral Cath Diagnostic Procedure Miscellaneous Procedure Description Procedure Date Procedure Date: 11/08/2016 Procedure Start Time: 11:49 Procedure Staff Name Function Skinny Kebede MD Performing Physician Nitin Almonte RT Scrub Shana Chandler RN Nurse Nitin Almonte RT Monitor Procedure Data Cath Procedure Fluoroscopy Diagnostic fluoroscopy Total fluoroscopy Time: 4.4 time: 4.4 min min Diagnostic fluoroscopy Total fluoroscopy dose: 190 dose: 190 mGy mGy Contrast Material Contrast Material Type Amount (ml) Isovue 300 50 Diagnostic catheters Device Type Used For [facility] Pigtail VESSEL SIZING 5Fr 65CM catheter Procedure Medications Medication Administration Route Dosage Rocephin I.V. 1 g Hemodynamics Rest Heart Rate: 71 (bpm) Snapshots Pre Cath Intra NCS Post Cath Vital Signs Time Heart Resp SPO2 NIBP Rhythm Pain Sedation Rate (ipm) (%) (mmHg) Status Level (bpm) 11:09:59 70 8 118/72(96) NSR 0 (11) 10(A) , No pain 11:14:06 71 109/77(93) NSR 0 (11) 10(A) , No pain 11:18:14 66 108/66(96) NSR 0 (11) 10(A) , No pain 11:22:22 70 112/67(97) NSR 0 (11) 10(A) , No pain 11:26:32 69 110/66(97) NSR 0 (11) 10(A) , No pain 11:30:40 69 104/70(91) NSR 0 (11) 10(A) , No pain 11:34:45 71 115/69(95) NSR 0 (11) 10(A) , No pain 11:38:55 74 109/71(94) NSR 0 (11) 10(A) , No pain 11:43:01 79 34 100 117/74(97) NSR 0 (11) 10(A) , No pain 11:47:11 80 100 104/67(81) NSR 0 (11) 10(A) , No pain 11:51:15 98 21 99 112/77(96) NSR 0 (11) 10(A) , No pain 11:55:25 15 99 109/71(83) NSR 0 (11) 10(A) , No pain 11:59:30 24 99 111/75(92) NSR 0 (11) 10(A) , No pain 12:03:34 91 18 99 98/61(73) NSR 0 (11) 10(A) , No pain 12:07:36 21 99 111/78(84) NSR 0 (11) 10(A) , No pain 12:11:48 83 15 99 102/66(77) NSR 0 (11) 10(A) , No pain 12:15:56 93 27 98 111/69(90) NSR 0 (11) 10(A) , No pain 12:20:05 90 9 99 98/67(75) NSR 0 (11) 10(A) , No pain 12:24:11 90 21 99/66(73) NSR 0 (11) 10(A) , No pain 12:28:15 94 11 98 113/71(80) NSR 0 (11) 10(A) , No pain Medications Time Medication Route Dose Verified Delivered Reason Notes Effective ness by by 11:57:27 Rocephin I.V. 1 g Shana POWER GENERATION TECHNICIAN antibiotic Geraldine planning official Log Time Note 10:57:14 Nitin Roldantrice RT (R) (CV) sent for patient. Start room use. 10:57:34 Time tracking: Regular hours 10:57:42 Plan of Care:Hemodynamics will remain stable., Cardiac rhythm will remain stable., Comfort level will be maintained., Respiratory function will remain adequate., Patient/ family verbilizes understanding of procedure., Procedure tolerated without complication., Recovers from procedure without complications.. 10:57:52 Patient received from Outpatients to IR Alert and oriented. Tansferred to table in Supine position. 10:57:54 Signed procedure consent form obtained from patient. 10:57:55 ECG and BP/O2 sat monitors applied to patient. 10:57:57 Full Disclosure recording started 10:58:04 H&P Date Dictated: 11/08/2016 H&P Addendum completed by physician on day of procedure. (MUST COMPLETE FOR ALL OUTPATIENTS). 10:58:05 Pre-procedure instructions explained to patient. 10:58:06 Pre-op teaching completed and patient verbalized understanding. 10:58:07 Family in waiting room. 10:58:09 Patient NPO since Midnight. 10:58:26 SEE ANESTHESIA NOTE FOR PRE PROCEDURE TIVA 10:58:30 - 10:58:36 Use device set IR Diagnostic 10:58:38 Bag Decanter opened to sterile field. 10:58:38 Sterile Angiographic Pack opened to sterile field. 11:04:56 Baseline sample Acquired. 11:04:56 Vital chart was started 11:18:54 Baseline sample Acquired. 11:43:05 Physician arrived 11:43:06 --------ALL STOP TIME OUT------ 11:43:07 Final Timeout: patient, procedure, and site verified with staff and physician. All members of the team are in agreement. 11:43:11 Right abdomen site verified by team. 11:43:20 Physical assessment completed. ASA score P 4 - A patient with severe systemic disease that is a constant threat to life as per Skinny Kebede MD. 11:43:23 Sedation plan: IV Moderate Sedation Versed, Fentanyl 11:49:44 Procedure started. 11:49:51 Local anesthetic to Abdominal area with Lidocaine 1% by Skinny Kebede MD.INITIAL ACCESS ONLY 11:50:22 Cook DOC .035 guide wire opened to sterile field. 11:50:23 St Neto 10FR 23CM sheath opened to sterile field. 11:53:38 Terumo Angled SS 180cm glide wire opened to sterile field. 11:55:37 Terumo 5FR ANGLED 65CM glide catheter opened to sterile field. 11:57:07 Celsion AMPLATZ Super stiff 180cm guide wire opened to sterile field . 11:57:07 STOPCOCK 3-WAY LARGE BORE opened to sterile field. 11:57:27 Rocephin 1 g I.V. was administered by POWER GENERATION TECHNICIAN; antibiotic; 11:57:32 BAG, DRAINAGE EMPTY 600ML W/DENIS opened to sterile field. 11:59:08 [employer] UHF Pigtail VESSEL SIZING 5Fr 65CM catheter was advanced over the wire and used for . 12:03:21 VIABIL 10 X 6 stent was deployed across Undefined1 . 12:07:37 BasixTOUCH Inflation Syringe opened to sterile field. 12:07:58 Inflation number: 1 A Cordis Powerflex Pro 8.0 x 40 x 80cm balloon was prepped and advanced across the Undefined1, then inflated to 0 ELICIA for 0:00 (min:sec). 12:15:07 Abscession 10 FR drainage catheter opened to sterile field. 12:18:21 2.0 Silk 685H opened to sterile field. 12:24:33 Procedure ended.(Physican Out) 12:24:54 Fluoroscopy time 04.40 minutes. 12:24:58 Fluoroscopy dose: 190 mGy 12:24:58 Flurop Dose total: 190 12::58 Contrast amount:Isovue 300 50ml. 12:27:00 Sharps counted by scrub and verified by R.N. 12:27:03 Post-op/insertion site Right Femoral artery dressed using a 4 x 4 and Tegaderm. 12:27:09 Post Abdominal area:stable 12:27:16 Post-procedure physical assessment completed. ASA score P 4 - A patient with severe systemic disease that is a constant threat to life as per Skinny Kebede MD. 12:27:19 Post procedure rhythm: unchanged. 12::33 SEE ANESTHESIA NOTE FOR POST PROCEDURE TIVA 12::33 Report given to Recovery Room. 12:31:36 Patient transfered to Recovery Room with Bed. 12:32:12 Vital chart was stopped Intervention Summary Intervention Notes Time ActionType Lesion and Equipment Action# Pressure Duration Attributes Used 12:03:21 Deploy self Undefined1 VIABIL 10 1 expanding X 6 stent stent 12:07:58 Inflate Undefined1 Cordis 1 0 00:00 balloon Powerflex Pro 8.0 x 40 x 80cm balloon Device Usage Item Name Manufacture Quantity Catalog Hospital Part Current Minima l Lot# / Number Charge Number Stock Stock Serial# Code Bag Decanter Microtek 1 [id number] 5 Medical Inc. Sterile Cardinal 1 [id number] [id number] [id number] 5 Angiographic Health Pack Cook [facility] 1 [id number] 004818 151048 [id number] Neto [address] [employer] Neto 1 [id number] 677977 243064 5 23CM sheath Terumo Terumo 1 [id number] 495177 142547 5 Angled SS 180cm glide wire Terumo 5FR Terumo 1 [id number] 640076 398502 5 ANGLED 65CM glide catheter [place] [facility] [place] 1 [id number] 515018 5 [id number] AMPLATZ Scientific Super stiff 180cm guide wire STOPCOCK [employer] 1 [id number] 041874 9368 [id number] 5 [id number] 3-WAY LARGE BORE BAG, [facility] 1 [id number] 117837 738193 687542 5 DRAINAGE EMPTY 600ML W/DENIS [facility] 1 [id number] 339231 864362 5 Pigtail VESSEL SIZING 5Fr 65CM catheter VIABIL 10 X [facility] [place] 1 [id number] 525260 880067 5 [id number] 6 stent BasixTOUCH [facility] 1 [id number] 219284 400944 021413 5 Inflation Syringe Cordis Cardinal 1 [id number] 730285 659837 774809 5 Powerflex Health Pro 8.0 x 40 x 80cm balloon Abscession Angiodynamics 1 [id number] 708577 377882 856481 5 10 FR drainage catheter 2.0 Silk Ethicon 1 [id number] 44536 841583 5 685H Signature Audit [place] Stage Time Signature Unsigned Intra-Procedure 11/08/2016 Nitin 12:32:09 PM Suzy RT (R) (CV) Signatures Monitor : Nitin Signature : Suzy RT Date : Time : [place] [address] [place] [address]
[~2016-11-08 07:36] MED LIST changes: +CARAFATE1 G/10 ML PO; +NYSTATIN ORAL SU5 ML PO; +PROTONIX40 MG PO
[2016-11-08 08:28] VITALS: BP 16/64; Ht 170.2 cm; Wt 79.1 kg
[2016-11-08 08:44] LABS: BASOPHILS 0.7 % (0-2); EOSINOPHILS 1.3 % (0-7); HEMATOCRIT 39.3 % (42.0-54.0); HEMOGLOBIN 13.3 g/dL (13.5-17.5); IMMATURE GRANULOCYTES 0.3 % (0-5); LYMPHOCYTES 18.7 % (15-50); MCHC 33.8 g/dL (31.0-37.0); MCV 94.7 fL (80.0-100.0); MONOCYTES 6.6 % (2-11); NEUTROPHILS 72.4 % (40-80); PLATELET COUNT 332 10x3/uL (130-400); RBC 4.15 10x6/uL (4.20-6.10); RDW 16.1 % (11.5-14.5); WBC 7.5 10x3/uL (4.8-10.8)
[2016-11-08 08:57] LABS: ALBUMIN 3.1 g/dL (3.4-5.0); ALKALINE PHOSPHATASE 165 U/L (46-116); ALT (SGPT) 88 U/L (10-68); BILIRUBIN - DIRECT 3.75 mg/dL (0.00-0.30); BILIRUBIN - INDIRECT 1.36 mg/dL (0.00-1.00); BILIRUBIN - TOTAL 5.11 mg/dL (0.2-1.3); CALC OSMOLALITY 276 mosm/kg (275-300); CALCIUM 8.8 mg/dL (8.5-10.1); CARBON DIOXIDE 33.7 mmol/L (21.0-32.0); CHLORIDE - SERUM 100 mmol/L (98-107); CREATININE - SERUM 0.9 mg/dL (0.6-1.3); GLUCOSE 92 mg/dL (74-106); POTASSIUM - SERUM 3.6 mmol/L (3.5-5.1); PROTEIN - SERUM 7.9 g/dL (6.4-8.2); SODIUM 139 mmol/L (136-145); UREA NITROGEN 10 mg/dL (7-18); eGFR NON AFRICAN AMERICAN 90 mL/min (90-120)
[2016-11-08 08:59] LABS: INR 1.19 (0.85-1.17)
[2016-11-08 09:00] LABS: APTT 32.9 SECONDS (22.8-39.4)
--- NOTE | 2016-11-08 12:52 | NUR ---
CHEST XRAY DONE IN RR PER ANESTHESIA
--- NOTE | 2016-11-08 12:52 | NUR ---
PRE OP BP 96/54
--- NOTE | 2016-11-08 12:58 | NUR ---
FSBS 88
--- NOTE | 2016-11-08 17:17 | NUR ---
1300-SEE FREQUENT VITAL SIGN SHEET. RETURNED FROM PACU POST BILIARY DRAIN PLACEMENT. 1330-FINGER FOOD TRAY SERVED. 1400-BILIARY DRAIN, PATENT. DRAINING BILE. 1600-IV D/C UP TO BATHROOM, VOIDS AND DRESSED. 1640-FAMILY RETURNS. DISCHARGE INSTRUCTIONS REVIEWED. STATES KNOWS ABOUT DRAIN CARE AND EMPTYING. 1650-D/C HOME VIA WHEELCHAIR.
== END | disposition home or self-care (01) ==
LOC: D.OPS 07:36 → D.RAD 09:00 → D.OPS 10:30
PROVIDERS: General Practice
DX: K83.1 Obstruction of bile duct (principal); C25.9 Malignant neoplasm of pancreas, unspecified; Z01.812 Encounter for preprocedural laboratory examination

== ENCOUNTER 2016-11-16 06:24 | Outpatient (CLI) | payer MEDICARE ==
[~2016-11-16] VITALS: Ht 170.2 cm; Wt 79.1 kg
--- NOTE | ~2016-11-16 | HEMODYNAMI ---
PATIENT:SYL BHAT MEDICAL RECORD: [id number] : 50 LOCATION:[facility] ADMISSION DATE: 11/16/16 Generatedon:11/16/20169:21 Patient name: SYL BHAT Patient #: [id number] SSN: : Date of study: 11/16/2016 Page: Of Hemodynamic Procedure Report Patient Data Patient Demographics Procedure consent was obtained First Name: SYL Gender: Male Last Name: PERLITA : 1950 [facility] Initial: JORDON Age: 66 year(s) Patient #: [id number] Race: Black Additional ID: [id number] Contact details Address: [address] [place] [address] STREET State: [place] City: [facility] Zip code: [address] Past Medical History Allergies: No known allergies Admission Admission Data Admission Date: 11/16/2016 Admission Time: 6:24 Procedure Procedure Types Cath Procedure Peripheral Cath Diagnostic Procedure Miscellaneous Procedure Description Procedure Date Procedure Date: 11/16/2016 Procedure Start Time: 9:00 Procedure Staff Name Function Edenilson Loyola MD Performing Physician Nitin Almonte RT Scrub Nitin Almonte RT Monitor Shana Chandler RN Nurse Procedure Data Cath Procedure Fluoroscopy Diagnostic fluoroscopy Total fluoroscopy Time: 0.4 time: 0.4 min min Diagnostic fluoroscopy Total fluoroscopy dose: 54 dose: 54 mGy mGy Contrast Material Contrast Material Type Amount (ml) Isovue 300 10 Procedure Medications Medication Administration Route Dosage Fentanyl I.V. 50 mcg Versed I.V. 1 mg Rocephin I.V. 1 g Hemodynamics Rest Heart Rate: 75 (bpm) Snapshots Pre Cath Intra NCS Post Cath Vital Signs Time Heart Resp SPO2 NIBP Rhythm Pain Sedation Rate (ipm) (%) (mmHg) Status Level (bpm) 9:02:16 74 18 100 104/63(86) NSR 0 (11) 10(A) , No pain 9:06:28 75 18 100 106/68(89) NSR 0 (11) 10(A) , No pain 9:10:42 71 20 100 107/67(87) NSR 0 (11) 10(A) , No pain 9:14:56 69 19 100 110/65(89) NSR 0 (11) 10(A) , No pain 9:18:55 99 No Cuff NSR 0 (11) 10(A) , No pain Medications Time Medication Route Dose Verified Delivered Reason Notes Effectivenes s by by 9:00:21 Fentanyl I.V. 50 Shana Shana for mcg Geraldine Gerladine sedation RN RN 9:00:32 Rocephin I.V. 1 g Shana Shana Geraldine Geraldine RN RN 9:00:47 Versed I.V. 1 mg Shana Shana for Geraldine Geraldine sedation RN ecological risk assessor Log Time Note 8:43:22 Nitin Almonte RT (R) (CV) sent for patient. Start room use. 8:43:31 Time tracking: Regular hours 8:43:36 Plan of Care:Hemodynamics will remain stable., Cardiac rhythm will remain stable., Comfort level will be maintained., Respiratory function will remain adequate., Patient/ family verbilizes understanding of procedure., Procedure tolerated without complication., Recovers from procedure without complications.. 8:43:42 Patient received from Outpatients to IR Alert and oriented. Tansferred to table in Supine position. 8:43:44 Correct patient and procedure confirmed by team. 8:43:45 Signed procedure consent form obtained from patient. 8:43:47 ECG and BP/O2 sat monitors applied to patient. 8:43:48 Full Disclosure recording started 8:43:48 8:43:52 H&P Date Dictated: 11/16/2016 H&P Addendum completed by physician on day of procedure. (MUST COMPLETE FOR ALL OUTPATIENTS). 8:43:53 Pre-procedure instructions explained to patient. 8:43:53 Pre-procedure instructions explained to patient. 8:43:54 Pre-op teaching completed and patient verbalized understanding. 8:43:56 Family in patients room. 8:44:20 Patient NPO since Midnight. 8:44:34 Is the patient allergic to Iodine/contrast media? No. 8:44:37 Is patient on blood thinner?No 8:44:41 Patient diabetic? Yes. 8:44:43 If diabetic: On Metformin? No 8:44:59 ----Pre-sedation anethsthesia assessment.---- 8:45:07 Previous problem with sedation/anesthesia? No ? 8:45:11 Snore? Yes 8:45:12 Sleep apnea? No 8:45:18 Deviated septum? No 8:45:26 Opens mouth fully? Yes 8:45:27 Sticks out tongue? Yes 8:45:29 Airway obstruction? No ? 8:45:31 Dentures? No ? 8:45:32 8:45:37 Patient pain scale 0/10 no pain. 8:48:46 IV patent on arrival in left hand with 0.9% NaCl at [facility]. 8:48:51 Use device set IR Diagnostic 8:48:52 Sterile Angiographic Pack opened to sterile field. 8:48:53 Bag Decanter opened to sterile field. 8:49:02 Sharps counted by scrub and verified by R.N. 8:49:03 Alarms reviewed by R. N. 8:49:15 Right abdomen area was prepped with chlora-prep and draped in sterile fashion 9:00:04 Physician arrived 9:00:04 --------ALL STOP TIME OUT------ 9:00:05 Final Timeout: patient, procedure, and site verified with staff and physician. All members of the team are in agreement. 9:00:08 Right abdomen site verified by team. 9:00:12 Physical assessment completed. ASA score P 3 - A patient with severe systemic disease as per Edenilson Loyola MD. 9:00:15 Post procedure instruction explained to patient.Patient verbalizes understanding. 9:00:16 Sedation plan: IV Moderate Sedation Versed, Fentanyl 9:00:21 Fentanyl 50 mcg I.V. was administered by Shana Chandler RN; for sedation; 9:00:23 Procedure started. 9:00:32 Rocephin 1 g I.V. was administered by Shana Chandler RN; ; 9:00:47 Versed 1 mg I.V. was administered by Shana Chandler RN; for sedation; 9:00:58 Local anesthetic to Abdominal area with Lidocaine 1% by Edenilson Loyola MD.INITIAL ACCESS ONLY 9:01:03 Vital chart was started 9:01:04 Baseline sample Acquired. 9:01:08 Rhythm: sinus rhythm 9:08:23 Cook VARINDER .035 15CM guide wire opened to sterile field. 9:10:27 Procedure ended.(Physican Out) 9:11:54 Fluoroscopy time 00.40 minutes. 9:11:58 Flurop Dose total: 54 9:11:58 Fluoroscopy dose: 54 mGy 9:12:06 Contrast amount:Isovue 300 10ml. 9:12:14 Sharps counted by scrub and verified by R.N. 9:12:16 Insertion/operative site no bleeding no hematoma. 9:12:21 Post-op/insertion site Right Abdominal area dressed using a 4 x 4 and Tegaderm. 9:12:36 Post Abdominal area:stable 9:12:44 Post-procedure physical assessment completed. ASA score P 3 - A patient with severe systemic disease as per Edenilson Loyola MD. 9:12:47 Post procedure rhythm: unchanged. 9:13:14 Procedure and supply charges have been captured, reviewed, submitted and are correct. 9:21:00 Report given to Outpatients. 9:21:03 Patient transfered to Outpatients with Bed. 9:21:50 Vital chart was stopped Device Usage Item Name Manufacture Quantity Catalog Hospital Part Current Minimal Lot# / Number Charge Number Stock Stock Serial# Code Sterile Cardinal 1 [id number] 5 Angiographic Health Pack Bag Decanter Microtek 1 [id number] 5 [employer] Cook VARINDER Cook Medical 1 [id number] 5 .035 15CM guide wire Signature Audit Sheridan Stage Time Signature Unsigned Intra-Procedure 11/16/2016 Nitin 9:21:48 AM Suzy RT (R) (CV) Signatures Monitor : Nitin Signature : Suzy RT Date : Time : [place] [id number] [place] [address]
[2016-11-16 07:20] LABS: BASOPHILS 0.9 % (0-2); EOSINOPHILS 2.8 % (0-7); HEMATOCRIT 34.6 % (42.0-54.0); HEMOGLOBIN 11.6 g/dL (13.5-17.5); LYMPHOCYTES 19.3 % (15-50); MCH 31.5 pg (26.0-34.0); MCHC 33.5 g/dL (31.0-37.0); MEAN PLATELET VOLUME 9.5 fL (7.4-10.4); MONOCYTES 10.5 % (2-11); NEUTROPHILS 66.5 % (40-80); RBC 3.68 10x6/uL (4.20-6.10); RDW 15.7 % (11.5-14.5); WBC 5.7 10x3/uL (4.8-10.8)
[2016-11-16 07:22] LABS: PLATELET COUNT 206 10x3/uL (130-400)
[2016-11-16 07:34] LABS: ALBUMIN 2.6 g/dL (3.4-5.0); ALKALINE PHOSPHATASE 97 U/L (46-116); ALT (SGPT) 39 U/L (10-68); BILIRUBIN - DIRECT 1.99 mg/dL (0.00-0.30); BILIRUBIN - INDIRECT 0.54 mg/dL (0.00-1.00); BILIRUBIN - TOTAL 2.53 mg/dL (0.2-1.3); CALC OSMOLALITY 271 mosm/kg (275-300); CALCIUM 8.1 mg/dL (8.5-10.1); CARBON DIOXIDE 32.4 mmol/L (21.0-32.0); CHLORIDE - SERUM 102 mmol/L (98-107); CREATININE - SERUM 0.7 mg/dL (0.6-1.3); GLUCOSE 87 mg/dL (74-106); POTASSIUM - SERUM 3.5 mmol/L (3.5-5.1); PROTEIN - SERUM 6.7 g/dL (6.4-8.2); SODIUM 137 mmol/L (136-145); UREA NITROGEN 11 mg/dL (7-18); eGFR NON AFRICAN AMERICAN > 90 mL/min (90-120)
[2016-11-16 07:37] LABS: INR 1.13 (0.85-1.17); PROTIME 14.4 SECONDS (11.6-15.0)
[2016-11-16 07:38] LABS: APTT 31.5 SECONDS (22.8-39.4)
[2016-11-16 07:46] VITALS: BP 108/68; Ht 170.2 cm; Wt 79.1 kg
--- NOTE | 2016-11-16 19:29 | NUR ---
0930--ALL VITAL SIGNS CHARTED ON POST PROCEDURE VITAL SIGN SHEET IN CHART. GAYLE DEVRIES 1230--IV DC'D. GAYLE DEVRIES 1240--DISCHARGE INSTRUCTIONS GIVEN, PT VERBALIZES UNDERSTANDING. PT OFF UNIT VIA WC. GAYLE DEVRIES
== END 2016-11-16 12:40 | disposition home or self-care (01) ==
LOC: D.OPS 06:24 → D.SP 09:00 → D.OPS 12:40
PROVIDERS: Radiology Diagnostic Radiology
DX: C25.9 Malignant neoplasm of pancreas, unspecified (principal); Z01.812 Encounter for preprocedural laboratory examination

== ENCOUNTER 2016-12-28 11:05 | Day surgery (SDC) | payer MEDICARE ==
[~2016-12-28] VITALS: Ht 170.2 cm; Wt 79.1 kg
--- NOTE | ~2016-12-28 | DS ---
PATIENT:SYL BHAT :50 MEDICAL RECORD: [id number] DISCHARGE SUMMARY ADMISSION DATE: 12/28/16 DISCHARGE DATE: 12/29/16 DATE OF ADMISSION: 12/28/2016 DATE OF DISCHARGE: 12/29/2016 HOSPITAL COURSE: Mr. Bhat is a 66-year-old black male that comes in with dysphagia for 3 days, has known history of esophageal stricture, seen by Dr. White in the past, has a history of lung cancer, has been treated with chemo and radiation. He is seen in consultation by Dr. Luz and taken to the GI lab where a tight stricture is noted. There was some corn in the distal esophagus, which was removed. He was able to dilate and he is now able to tolerate liquids and fluids. He is going to need sequential dilatations. He is going be discharged this morning. See MAR for meds and we will follow up with GI next week for sequential dilatations. Dr. Luz and Dr. White's office will contact him on Saturday. He is instructed on liquids only, no solids. TRANSINT:[id number] Voice Confirmation ID: [id number] DOCUMENT ID: [id number] FREDDY GUAJARDO DO CC: [id number] DICTATION DATE: 12/29/16 111 HEALTH SAFETY ENGINEER: 12/29/16 1406 DIS IN 12/29/16 [facility] [address] [place] [address]
[2016-12-28 12:34] LABS: BASOPHILS 0.4 % (0-2); EOSINOPHILS 0.3 % (0-7); HEMATOCRIT 43.1 % (42.0-54.0); HEMOGLOBIN 14.3 g/dL (13.5-17.5); IMMATURE GRANULOCYTES 0.3 % (0-5); LYMPHOCYTES 29.5 % (15-50); MCH 30.5 pg (26.0-34.0); MCHC 33.2 g/dL (31.0-37.0); MCV 91.9 fL (80.0-100.0); MONOCYTES 9.1 % (2-11); NEUTROPHILS 60.4 % (40-80); PLATELET COUNT 195 10x3/uL (130-400); RBC 4.69 10x6/uL (4.20-6.10); RDW 15.1 % (11.5-14.5); WBC 6.9 10x3/uL (4.8-10.8)
[2016-12-28 12:35] LABS: ALBUMIN 3.5 g/dL (3.4-5.0); ALKALINE PHOSPHATASE 108 U/L (46-116); ALT (SGPT) 34 U/L (10-68); BILIRUBIN - TOTAL 1.36 mg/dL (0.2-1.3); CALC OSMOLALITY 291 mosm/kg (275-300); CALCIUM 9.2 mg/dL (8.5-10.1); CARBON DIOXIDE 29.2 mmol/L (21.0-32.0); CHLORIDE - SERUM 107 mmol/L (98-107); CREATININE - SERUM 0.9 mg/dL (0.6-1.3); GLUCOSE 104 mg/dL (74-106); POTASSIUM - SERUM 3.5 mmol/L (3.5-5.1); PROTEIN - SERUM 8.3 g/dL (6.4-8.2); SODIUM 146 mmol/L (136-145); UREA NITROGEN 14 mg/dL (7-18); eGFR NON AFRICAN AMERICAN 90 mL/min (90-120)
--- NOTE | 2016-12-28 17:37 | NUR ---
PT AOX4 RESP EVEN AND NONLABORED PT C/O OF THROAT TIGHTNESS FOR THIS VISIT. AT BEDSIDE AT THIS TIME TALKING TO PT. IV TO RIGHT FOREARM PATENT AND INTACT AT THIS TIME SRX2 BED AT LOWEST SETTING CALL LIGHT WITHIN REACH WILL CONTINUE TO MONITOR
[2016-12-28 19:16] VITALS: BP 116/71
[2016-12-28 23:25] VITALS: BP 116/71; Ht 170.2 cm; Wt 79.1 kg
[2016-12-29] VITALS: BP 109/84
[2016-12-29 04:00] VITALS: BP 124/69
[2016-12-29 06:04] LABS: BASOPHILS 0.3 % (0-2); EOSINOPHILS 0.4 % (0-7); HEMATOCRIT 37.3 % (42.0-54.0); HEMOGLOBIN 12.4 g/dL (13.5-17.5); IMMATURE GRANULOCYTES 0.4 % (0-5); LYMPHOCYTES 26.6 % (15-50); MCH 30.5 pg (26.0-34.0); MCHC 33.2 g/dL (31.0-37.0); MCV 91.9 fL (80.0-100.0); MEAN PLATELET VOLUME 9.7 fL (7.4-10.4); MONOCYTES 12.4 % (2-11); NEUTROPHILS 59.9 % (40-80); RBC 4.06 10x6/uL (4.20-6.10); RDW 15.2 % (11.5-14.5); WBC 6.9 10x3/uL (4.8-10.8)
[2016-12-29 06:10] LABS: PLATELET COUNT 151 10x3/uL (130-400)
[2016-12-29 06:21] LABS: ALBUMIN 2.8 g/dL (3.4-5.0); ALKALINE PHOSPHATASE 85 U/L (46-116); ALT (SGPT) 27 U/L (10-68); BILIRUBIN - TOTAL 0.83 mg/dL (0.2-1.3); CALC OSMOLALITY 284 mosm/kg (275-300); CALCIUM 8.1 mg/dL (8.5-10.1); CARBON DIOXIDE 26.5 mmol/L (21.0-32.0); CHLORIDE - SERUM 110 mmol/L (98-107); CREATININE - SERUM 0.7 mg/dL (0.6-1.3); GLUCOSE 113 mg/dL (74-106); POTASSIUM - SERUM 3.5 mmol/L (3.5-5.1); PROTEIN - SERUM 6.7 g/dL (6.4-8.2); SODIUM 143 mmol/L (136-145); eGFR NON AFRICAN AMERICAN > 90 mL/min (90-120)
[2016-12-29 06:23] LABS: UREA NITROGEN 10 mg/dL (7-18)
--- NOTE | 2016-12-29 07:30 | NUR ---
PT AOX4 RESP EVEN AND NONLABORED PT DENIES NEEDS AT THIS TIME IV TO RIGHT HAND PATENT AND INTACT AT THIS TIME SRX2 BED AT LOWEST SETTING CALL LIGHT WITHIN REACH WILL CONTINUE TO MONITOR
[2016-12-29 08:40] VITALS: BP 108/68
[2016-12-29] MEDS ORDERED: OMEPRAZOLE40 MG PO (11:29)
[2016-12-29 12:39] VITALS: BP 131/75
--- NOTE | 2016-12-29 13:40 | NUR ---
IV DISCONTINUED WITH CATHETER INTACT AT THIS TIME PT GIVEN DISCHARGE INSTRUCTIONS AND ONE SCRIPT AT THIS TIME PT TAKEN VIA WHEELCHAIR VIA PRIVATE VEHICLE AT THIS TIME
== END 2016-12-29 13:43 | disposition home or self-care (01) ==
LOC: OBSVTIME → D.ER 11:05 → D.OPS 11:05 → D.MS 14:25 → D.ER 14:25 → D.MS 14:25 → OBSVTIME 14:25 → EDSTATUS 17:25 → D.MS 12-29 13:43 → D.OPS 12-29 13:43 → D.MS 12-29 13:43
PROVIDERS: Emergency Medicine; Family Medicine
DX: K22.2 Esophageal obstruction (principal); I50.9 Heart failure, unspecified; K27.9 Peptic ulcer, site unspecified, unspecified as acute or chronic, without hemorrhage or perforation; E11.9 Type 2 diabetes mellitus without complications; J18.9 Pneumonia, unspecified organism; C34.90 Malignant neoplasm of unspecified part of unspecified bronchus or lung; K86.9 Disease of pancreas, unspecified; J44.9 Chronic obstructive pulmonary disease, unspecified; K83.1 Obstruction of bile duct; Z01.812 Encounter for preprocedural laboratory examination; R13.10 Dysphagia, unspecified

== ENCOUNTER 2017-01-31 08:48 | Inpatient (IN) | payer MEDICARE ==
[2017-01-31] VITALS (12 sets, daily range): BP systolic 89–105; BP diastolic 53–78; BMI 27.3; BMI 26.8
[~2017-01-31 08:48] MED LIST changes: +OMEPRAZOLE40 MG PO
[2017-01-31 09:55] LABS: BASOPHILS 0.1 % (0-2); EOSINOPHILS 0.1 % (0-7); HEMATOCRIT 37.9 % (42.0-54.0); HEMOGLOBIN 12.4 g/dL (13.5-17.5); IMMATURE GRANULOCYTES 0.1 % (0-5); MCH 29.5 pg (26.0-34.0); MCHC 32.7 g/dL (31.0-37.0); MCV 90.2 fL (80.0-100.0); MEAN PLATELET VOLUME 10.3 fL (7.4-10.4); MONOCYTES 6.6 % (2-11); NEUTROPHILS 79.1 % (40-80); RDW 15.6 % (11.5-14.5); WBC 7.2 10x3/uL (4.8-10.8)
[2017-01-31 10:12] LABS: ALBUMIN 3.2 g/dL (3.4-5.0); ALKALINE PHOSPHATASE 75 U/L (46-116); ALT (SGPT) 27 U/L (10-68); BILIRUBIN - TOTAL 1.39 mg/dL (0.2-1.3); CALC OSMOLALITY 278 mosm/kg (275-300); CALCIUM 8.9 mg/dL (8.5-10.1); CHLORIDE - SERUM 101 mmol/L (98-107); CREATININE - SERUM 0.6 mg/dL (0.6-1.3); GLUCOSE 96 mg/dL (74-106); POTASSIUM - SERUM 4.9 mmol/L (3.5-5.1); PROTEIN - SERUM 7.5 g/dL (6.4-8.2); SODIUM 139 mmol/L (136-145); UREA NITROGEN 15 mg/dL (7-18); eGFR NON AFRICAN AMERICAN > 90 mL/min (90-120)
[2017-01-31 10:13] LABS: PLATELET COUNT 357 10x3/uL (130-400)
--- NOTE | 2017-01-31 12:31 | NUR ---
1158 PATIENT WAS BAGED OBSTRUCTED. WAS ABLE TO DILATE ESOPHAGUS UP TO 36.
--- NOTE | 2017-01-31 14:06 | NUR ---
1255- RECEIVED REPORT FROM KAYCE WEBB. PT S/P EGD PROCEDURE AND RESP. DISTRESS. DR. GRAYSON WAS AT BEDSIDE. ORDERS TO BE GIVEN. PT SITTING UP WITH HOB ELEVATED, OXYMIZER ON. 1305- ABG BEING DRAWN. FOLLOWING ORDERS. 1315- REPORT CALLED TO KAYCE JOAQUIN IN ICU. PT BEING TRANSFERRED TO 2309. PT'S AWARE OF ROOM NUMBER, HAS LEFT HOSPITAL. 1335- PT TO ICU. TRANSFERRED SELF TO BED FROM STRETCHER WITH ASSIST. R/T AT BEDSIDE FOR BIPAP PLACEMENT. RN NOTIFIED THAT LABS NEED TO BE DRAWN, BUT ORDERED. PT TRANSFERRED IN COMPUTER FOR OUTPT. TO INPT.
[2017-01-31 15:36] LABS: BASOPHILS 0.1 % (0-2); EOSINOPHILS 0 % (0-7); HEMATOCRIT 39.2 % (42.0-54.0); HEMOGLOBIN 12.6 g/dL (13.5-17.5); IMMATURE GRANULOCYTES 0.1 % (0-5); LYMPHOCYTES 2.7 % (15-50); MCH 29.2 pg (26.0-34.0); MCHC 32.1 g/dL (31.0-37.0); MEAN PLATELET VOLUME 9.7 fL (7.4-10.4); MONOCYTES 1.3 % (2-11); NEUTROPHILS 95.8 % (40-80); PLATELET COUNT 317 10x3/uL (130-400); RBC 4.31 10x6/uL (4.20-6.10); RDW 15.7 % (11.5-14.5)
[2017-01-31 15:37] LABS: WBC 10.4 10x3/uL (4.8-10.8)
--- NOTE | 2017-01-31 15:52 | OP ---
PATIENT NAME: SYL BHAT MEDICAL RECORD: [id number] :50 LOCATION:D.[facility] D.2309 ADMISSION DATE:01/31/17 SURGEON: GENEVIEVE ESPINOZA MD DATE OF OPERATION: 01/31/2017 PROCEDURE: EGD with esophageal dilatation. PRIMARY CARE PHYSICIAN: Karen Ye MD TEST CASE DEVELOPER/ONCOLOGIST: Olive Mayes MD DUMPER MOLD CLEANER: Jack Harrison MD. INDICATIONS: Mr. Bhat is a very pleasant 66-year-old gentleman with history of lung cancer, COPD, congestive heart failure and a history of esophageal stricture. In the past, he had spontaneous esophageal perforation treated with placement of esophageal stent (Dr. Parmar). Subsequently, he has a chronic distal esophageal stricture, has ongoing dysphagia. He presents for outpatient EGD. PREMEDICATIONS: Total IV anesthesia (propofol 240 mg). INSTRUMENT: Olympus video gastroscope and esophageal balloon dilator 36-Israeli. PROCEDURE AND FINDINGS: After receiving informed consent, Mr. Bhat was placed in left lateral decubitus position, sedated as per anesthesia and then after achieving adequate level of sedation, gastroscope was introduced per orally and advanced into the distal esophagus. In the distal esophagus, was narrowing and callus appearing mucosa, I was unable to pass the gastroscope through the GE junction. Then, an esophageal balloon dilator was passed through the distal esophageal stricture, insufflated to 36-Israeli size, held in place on the appropriate PSI for 30 seconds then deflated with some good results; however, still unable to pass the gastroscope through the GE junction secondary to O2 desaturation. The procedure was terminated at that point and the gastroscope was withdrawn. ASSESSMENT: 1. Distal esophageal stricture, status post esophageal balloon dilatation to 36-Israeli size. 2. Stomach and duodenum not evaluated on this exam. RECOMMENDATIONS: 1. Permanently soft diet. 2. Carafate liquid 1 gram t.i.d. TRANSINT:[id number] Voice Confirmation ID: [id number] DOCUMENT ID: [id number] OPERATIVE REPORT [id number] SYL BHAT GENEVIEVE ESPINOZA MD at 1552 CC: JACK HARRISON MD, OLIVE MAYES MD and KAREN YE MD [id number] DICTATION DATE: 01/31/17 1228 MOLD RELEASE WORKER: 01/31/17 [address] [facility] [address] [id number]
[2017-01-31 16:05] LABS: ALBUMIN 3.1 g/dL (3.4-5.0); ALKALINE PHOSPHATASE 75 U/L (46-116); ALT (SGPT) 26 U/L (10-68); BILIRUBIN - TOTAL 0.99 mg/dL (0.2-1.3); CALC OSMOLALITY 277 mosm/kg (275-300); CALCIUM 8.5 mg/dL (8.5-10.1); CARBON DIOXIDE 31.9 mmol/L (21.0-32.0); CHLORIDE - SERUM 101 mmol/L (98-107); CREATININE - SERUM 0.9 mg/dL (0.6-1.3); GLUCOSE 109 mg/dL (74-106); POTASSIUM - SERUM 3.9 mmol/L (3.5-5.1); PRO BNP 81 pg/mL (0-125); PROTEIN - SERUM 7.7 g/dL (6.4-8.2); SODIUM 138 mmol/L (136-145); TROPONIN-I < 0.017 ng/mL (0.000-0.060); UREA NITROGEN 15 mg/dL (7-18); eGFR NON AFRICAN AMERICAN 90 mL/min (90-120)
--- NOTE | 2017-01-31 19:00 | NUR ---
REPORT RECEIVED. SHIFT ASSESSMENT COMPLETED PER FLOW SHEET. PT LAYING IN BED AWAKE AND ALERT. S1 AND S2 PRESENT. RADIAL AND PEDAL PULSES PALP. TELEMETRY MONITORING HR OF 93. 2 L O2 VIA NC. BS ACTIVE X4. REPORTS NO PROBLEMS VOIDING. 300 MLS OF YELLOW URINE EMPTIED FROM URINAL. SKIN WARM AND DRY. DRYNESS NOTED TO GENERALIZED BODY. MID ABDOMENAL SCAR NOTED, REPORTS IT'S FROM PREVIOUS SURGERY. SCD'S ON. RT AC PIV, PATENT INFUSING NS AT 20 MLS/HR, DRESSING CDI. PT ABLE TO FOLLOW COMMANDS, AND MOVE UPPER AND LOWER EXTREMITIES WITHOUT A PROBLEM. SEE FLOW SHEET FOR COMPLETED ASSESSMENT. CALL LIGHT WITHIN REACH. BED IN LOWEST POSITION. WILL CONTINUE TO MONITOR.
--- NOTE | 2017-01-31 20:51 | NUR ---
PT LAYING IN BED AWAKE, WATCHING TV. MEDS ADMINISTERED PER EMAR. APPLE JUICE PROVIDED PER REQUEST. HOB POSITIONED AT 90 DEGREES. ENCORAGED PT TO TAKE SMALL SIPS. PT TOLERATED WELL. DENIES NEEDS. CALL LIGHT WITHIN REACH. BED IN LOWEST POSITION. WILL CONTINUE TO MONITOR.
--- NOTE | 2017-01-31 23:15 | NUR ---
REASSESSMENT COMPLETED PER FLOW SHEET, NO ACUTE CHANGES NOTED. SEE FLOW SHEET FOR DETAILS. ASSISSTED WITH BED BATH. COMPLETE BED LINEN CHANGE. CLEAN HOSPITAL GOWN PROVIDED. WATER PROVIDED PER REQUEST HOB AT 90 DEGREES WHILE DRINKING. DENIES FURTHER NEEDS. CALL LIGHT WITHIN REACH. BED IN LOWEST POSITION. WILL CONTINUE TO MONITOR.
[2017-02-01] VITALS (14 sets, daily range): BP systolic 85–101; BP diastolic 50–64; BMI 26.4
--- NOTE | 2017-02-01 01:00 | NUR ---
PT LAYING IN BED RESTING. NO DISTRESS NOTED AT THIS TIME. WILL CONTINUE TO MONITOR.
--- NOTE | 2017-02-01 05:00 | NUR ---
PT AWAKE. LAB PERSONNEL AT BEDSIDE OBTAINING AM LABS. DENIES NEEDS. CALL LIGHT WITHIN REACH. BED IN LOWEST POSITION. WILL CONTINUE TO MONITOR.
[2017-02-01 05:13] LABS: BASOPHILS 0 % (0-2); EOSINOPHILS 0 % (0-7); HEMATOCRIT 34.8 % (42.0-54.0); HEMOGLOBIN 11.4 g/dL (13.5-17.5); IMMATURE GRANULOCYTES 0.3 % (0-5); LYMPHOCYTES 2.2 % (15-50); MCH 29.2 pg (26.0-34.0); MCHC 32.8 g/dL (31.0-37.0); MONOCYTES 0.1 % (2-11); NEUTROPHILS 97.4 % (40-80); PLATELET COUNT 299 10x3/uL (130-400); RBC 3.91 10x6/uL (4.20-6.10); RDW 15.5 % (11.5-14.5)
[2017-02-01 05:22] LABS: WBC 17.6 10x3/uL (4.8-10.8)
[2017-02-01 05:27] LABS: AMYLASE - SERUM 35 U/L (25-115); CALCIUM 8.1 mg/dL (8.5-10.1); CARBON DIOXIDE 29.7 mmol/L (21.0-32.0); CHLORIDE - SERUM 103 mmol/L (98-107); CREATININE - SERUM 0.9 mg/dL (0.6-1.3); LIPASE 76 U/L (73-393); MAGNESIUM - SERUM 1.6 mg/dL (1.8-2.4); PHOSPHOROUS 4.1 mg/dL (2.5-4.9); POTASSIUM - SERUM 4.1 mmol/L (3.5-5.1); SODIUM 139 mmol/L (136-145); eGFR NON AFRICAN AMERICAN 90 mL/min (90-120)
[2017-02-01 05:30] LABS: CALC OSMOLALITY 283 mosm/kg (275-300); GLUCOSE 160 mg/dL (74-106); UREA NITROGEN 22 mg/dL (7-18)
--- NOTE | 2017-02-01 06:44 | NUR ---
PT LAYING IN BED RESTING, MEDS ADMINISTERE PER EMAR, SEE FOR DETAILS. DENIES NEEDS. WILL CONTINUE TO MONITOR.
--- NOTE | 2017-02-01 07:00 | NUR ---
REC'D REPORT AND RESUMED CARE, SLEEPING, AROUSABLE TO VERBAL STIMULI, VSS, DENIES PAIN, ASSESSMENT COMPLETE PER FLOWSHEET, INDEPENDENT WITH REPOSITIONING, CALL LIGHT IN REACH, VOICES NO NEEDS AT THIS TIME
--- NOTE | 2017-02-01 08:00 | NUR ---
BREAKFAST TRAY TO BEDSIDE, INDEPENDENT WITH SET UP AND EATING
--- NOTE | 2017-02-01 10:45 | NUR ---
DR GRAYSON AT BEDSIDE, NEW ORDER GIVEN FOR TRANSFER OUT OF ICU
--- NOTE | 2017-02-01 11:00 | NUR ---
RESTING WATCHING TV, VSS, DENIES PAIN, 300 CC URINE TO URINAL, ASSESSMENT COMPLETE PER FLOWSHEET VOICES NO NEEDS AT THIS TIME
--- NOTE | 2017-02-01 11:45 | NUR ---
DR BLACKWOOD AT BEDSIDE, SPOKE WITH FAMILY MEMBER RE:POC, NO NEEDS AT THIS TIME
--- NOTE | 2017-02-01 15:30 | NUR ---
WATCHING TV. NO DISTRESS NOTED.
--- NOTE | 2017-02-01 15:34 | CN ---
PATIENT NAME:SYL BHAT MEDICAL RECORD: [id number] : 50 LOCATION:[facility] ADMIT DATE: 01/31/17 ACCOUNT: [id number] CONSULTING PHYSICIAN: MARE CUNNINGHAM MD REFERRING PHYSICIAN: GENEVIEVE ESPINOZA MD DATE OF CONSULTATION: 01/31/2017 HISTORY OF PRESENT ILLNESS: A 66-year-old black male, who underwent evaluation of esophageal stricture and was taken to the GI lab for TIVA. The patient went into respiratory distress following this and was admitted to the hospital ICU for monitoring and further evaluation. PAST MEDICAL HISTORY: Significant for history of severe erosive esophagitis and duodenitis. He had difficulty having the EGD in stricture that was placed and had some respiratory distress following that and was needing to be evaluated. Significant for hypertension, arrhythmia, CHF, esophageal cancer, GERD, lung cancer, erosive esophagitis, COPD, constipation. PAST SURGICAL HISTORY: Includes pericardial fluid removal, feeding tube, Infusaport. ALLERGIES: The patient has no known drug allergies. MEDICATIONS: Listed on the MAR sheet. SOCIAL HISTORY: The patient does not smoke presently, did in the past. No alcohol at the present time. REVIEW OF SYSTEMS: As above. PHYSICAL EXAMINATION: GENERAL: He is a well-developed, well-nourished 66-year-old black male that is ill-appearing at the present time, alert however in the ICU. HEENT: Pupils equal, round and reactive to light. Extraocular movements are intact. Oral cavity and oropharynx are otherwise clear. NECK: No cervical or pharyngeal adenopathy. No nuchal rigidity. LUNGS: Coarse breath sounds heard bilaterally with crackles in the bases. HEART: Regular rate and rhythm with I/ systolic ejection murmur and occasional skipped beat. ABDOMEN: Distended, soft, nontender, positive bowel sounds. No hepatosplenomegaly, no masses. EXTREMITIES: Trace edema is noted. NEUROLOGIC: He is able to move all 4 extremities. ASSESSMENT: 1. Respiratory distress following sedation for TIVA. 2. Esophageal stricture. 3. Erosive esophagitis. 4. Chronic obstructive pulmonary disease. 5. Lung cancer. 6. Hypertension. 7. Arrhythmia. PLAN: The patient was monitored in the ICU. We will follow up with pulmonary, check laboratory appropriately. CONSULT REPORT [id number] SYL BHAT TRANSINT:[id number] Voice Confirmation ID: [id number] DOCUMENT ID: [id number] MARE CUNNINGHAM MD at 1534 CC: [id number] DICTATION DATE: 01/31/17 164 ALARM MECHANISM ADJUSTER: 01/31/17 1744 ADM IN [facility] [address] [place] [address]
--- NOTE | 2017-02-01 16:57 | EC ---
PATIENT:SYL BHAT DATE OF SERVICE: 01/31/17 SEX: M MEDICAL RECORD: [id number] DATE OF : 50 LOCATION:[facility] AGE OF PATIENT: 66 ADMISSION DATE: 01/31/17 REFERRING PHYSICIAN: INTERPRETING PHYSICIAN: LINDA PEARSON MD ECHOCARDIOGRAM REPORT ECHO CHARGES 4 ECHO COMPLETE CLINICAL DIAGNOSIS: CHF HX OF HTN ECHOCARDIOGRAPHIC MEASUREMENTS (adult normal given) AC root (d.<3.7cm) 63.1 cm LV Septum d (<1.2 cm> 1.2 cm Valve Excursion 1.5 cm LV Septum (systole) 1.5 cm Left Atria (s.<4.0cm> 4.1 cm LVPW d(<1.2cm) 1.4 cm RV (d.<2.3cm) 4.9 cm LVPW (sytole) 1.6 cm LV diastole(<5.6CM) 5.1 cm MV E-F(>70mm/sec) cm LV systole 3.8 cm LVOT Diameter 2.1 cm MV exc.(>10mm) 1.9 cm Est.ejection fraction (50-75%) % Pericardial Effusion N DOPPLER: LVIT cm/sec A 85.0 cm/sec E 66.0 cm/sec LA cm/sec RVSP 38 mmHg LVOT 99 cm/sec AOP1/2T m/s Asc. Ao 140 cm/sec RVOT cm/sec RA cm/sec PA cm/sec AV Gradient Peak 7.870mmHg AV Mean 3.46 mmHg AV Area 3.1 cm MV Gradient Peak 4.16 mmHg MV Mean 1.69 mmHg MV Area cm COMMENTS: Telegraph Service Clerk: Sujey HOFFMAN Biological Plant Operator: 1 Dr. Pearson TAPE# PACS DATE OF SERVICE: 02/01/2017 PROCEDURE: Echocardiogram FINDINGS: 1. Left ventricular chamber size is within normal limits. Left ventricular systolic function is normal. Overall ejection fraction estimated at 55%. 2. Left atrium is enlarged at 4.1 cm. Right atrium and right ventricular chamber sizes are as well gjzj-fc-heljehffnj dilated. 3. Valvular structures have normal structure and motion. ECHOCARDIOGRAM REPORT [id number] SYL BHAT 4. Doppler interrogation reveals mild mitral regurgitation, mild tricuspid regurgitation, no other valvular insufficiency or stenosis. Pulmonary systolic pressure is preserved at 38 mmHg. 5. No evidence of pericardial effusion or left ventricular thrombus. TRANSINT:[id number] Voice Confirmation ID: [id number] DOCUMENT ID: [id number] LINDA PEARSON MD at 1657 CC: [id number] DICTATION DATE: 02/01/17 1336 MANAGER PLANT: 02/01/17 1356 ADM IN [facility] [address] [id number]
--- NOTE | 2017-02-01 17:31 | NUR ---
TRANSFERRED TO ROOM 2205 VIA WC. TO CHAIR. NURSING STAFF AT BEDSIDE. O2 @ 2LPM AND NS TO PUMP @ 10CC/HR.
--- NOTE | 2017-02-01 17:32 | NUR ---
RECEIVED TO ROOM 2205 VIA WC FROM ICU. A/O X3. NO C/O VOICED. DENIES NEEDS.
--- NOTE | 2017-02-01 18:29 | NUR ---
SITTING UP IN CHAIR AT BEDSIDE EATING SUPPER. DENIES NEEDS.
--- NOTE | 2017-02-01 21:31 | NUR ---
REC'D LYING IN BED. ALERT AND ORIENTED X4. DENIED PAIN AT THIS TIME. DENIED NEEDS AT THIS TIME. NO DISTRESS NOTED. INSTRUCTED TO CALL IF NEEDED ANYTHING, VERBALIZED UNDERSTANDING. BED LOW, LOCKED, CALL LIGHT IN REACH. WILL CONT TO MONITOR.
[2017-02-02] VITALS: BP 96/57
--- NOTE | 2017-02-02 03:00 | NUR ---
PT RESTING QUIETLY, EYES CLOSED. RESP EVEN, UNLABORED. NO DISTRESS NOTED. CONTINUE BULK PLANT MANAGER'S PLAN OF CARE.
[2017-02-02 05:21] LABS: BASOPHILS 0 % (0-2); EOSINOPHILS 0 % (0-7); HEMATOCRIT 32.2 % (42.0-54.0); HEMOGLOBIN 10.6 g/dL (13.5-17.5); IMMATURE GRANULOCYTES 0.3 % (0-5); LYMPHOCYTES 3.8 % (15-50); MCH 29.2 pg (26.0-34.0); MCHC 32.9 g/dL (31.0-37.0); MCV 88.7 fL (80.0-100.0); MEAN PLATELET VOLUME 9.9 fL (7.4-10.4); MONOCYTES 0.3 % (2-11); NEUTROPHILS 95.6 % (40-80); PLATELET COUNT 317 10x3/uL (130-400); RBC 3.63 10x6/uL (4.20-6.10); RDW 15.6 % (11.5-14.5)
[2017-02-02 05:22] LABS: WBC 11.9 10x3/uL (4.8-10.8)
[2017-02-02 05:33] LABS: CALC OSMOLALITY 277 mosm/kg (275-300); CALCIUM 8.5 mg/dL (8.5-10.1); CARBON DIOXIDE 31.3 mmol/L (21.0-32.0); CHLORIDE - SERUM 99 mmol/L (98-107); CREATININE - SERUM 0.8 mg/dL (0.6-1.3); GLUCOSE 156 mg/dL (74-106); SODIUM 136 mmol/L (136-145); UREA NITROGEN 20 mg/dL (7-18); eGFR NON AFRICAN AMERICAN > 90 mL/min (90-120)
[2017-02-02 06:00] VITALS: BP 95/60
--- NOTE | 2017-02-02 08:15 | NUR ---
PATIENT SITTING UP IN BED. PATIENT IS AWAKE, ALERT, AND ORIENTED X4. SCHEDULED MORNING MEDICATIONS GIVEN TO PATIENT WITHOUT ANY PROBLEMS NOTED. ASSESSMENT COMPLETED. SEE FLOWSHEET FOR ANY DETAILS. PATIENT DENIES ANY NEEDS AT PRESENT TIME. CALL LIGHT IN PATIENT'S REACH. WILL MONITOR.
[2017-02-02 08:42] VITALS: BP 97/59
[2017-02-02 12:52] VITALS: BP 102/69
--- NOTE | 2017-02-02 15:00 | NUR ---
PATIENT RESTING IN BED AND WATCHING T.V. FAMILY IN ROOM WITH PATIENT. SCHEDULED MEDICATIONS GIVEN TO PATIENT. PATIENT TOLERATED WELL. CALL LIGHT IN PATIENT'S REACH. WILL MONITOR PATIENT.
[2017-02-02 16:04] VITALS: BP 105/66
[2017-02-02 20:00] VITALS: BP 98/66
--- NOTE | 2017-02-02 21:26 | NUR ---
REC'D LYING IN BED. ALERT AND ORIENTED X4. DENIED PAIN AT THIS TIME. DENIED NEEDS AT THIS TIME. INSTRUCTED TO CALL IF NEEDED ANYTHING, VERBALIZED UNDERSTANDING. BED LOW, LOCKED, CALL LIGHT IN REACH. NO DISTRESS NOTED, WILL CONT TO MONITOR.
[2017-02-03] VITALS: BP 102/64
--- NOTE | 2017-02-03 03:00 | NUR ---
PT RESTING QUIETLY, EYES CLOSED. RESP EVEN, UNLABORED. NO DISTRESS NOTED. CONTINUE SILVERWARE ETCHER'S PLAN OF CARE.
[2017-02-03 04:00] VITALS: BP 99/59
[2017-02-03 05:19] LABS: BASOPHILS 0 % (0-2); EOSINOPHILS 0 % (0-7); HEMATOCRIT 32.9 % (42.0-54.0); HEMOGLOBIN 10.8 g/dL (13.5-17.5); IMMATURE GRANULOCYTES 0.1 % (0-5); MCH 29.2 pg (26.0-34.0); MCHC 32.8 g/dL (31.0-37.0); MCV 88.9 fL (80.0-100.0); MEAN PLATELET VOLUME 9.8 fL (7.4-10.4); MONOCYTES 0.4 % (2-11); NEUTROPHILS 93.5 % (40-80); PLATELET COUNT 294 10x3/uL (130-400); RDW 15.2 % (11.5-14.5); WBC 8.4 10x3/uL (4.8-10.8)
[2017-02-03 05:42] LABS: ALBUMIN 2.7 g/dL (3.4-5.0); ALKALINE PHOSPHATASE 51 U/L (46-116); ALT (SGPT) 18 U/L (10-68); CALC OSMOLALITY 272 mosm/kg (275-300); CALCIUM 8.6 mg/dL (8.5-10.1); CHLORIDE - SERUM 100 mmol/L (98-107); CREATININE - SERUM 0.7 mg/dL (0.6-1.3); GLUCOSE 142 mg/dL (74-106); POTASSIUM - SERUM 4.3 mmol/L (3.5-5.1); PRO BNP 172 pg/mL (0-125); PROTEIN - SERUM 6.5 g/dL (6.4-8.2); SODIUM 135 mmol/L (136-145); UREA NITROGEN 15 mg/dL (7-18); eGFR NON AFRICAN AMERICAN > 90 mL/min (90-120)
--- NOTE | 2017-02-03 07:19 | NUR ---
PATIENT RESTING IN BED. PATIENT IS AWAKE, ALERT, AND ORIENTED X4. CALL LIGHT IN PATIENT'S REACH. PATIENT DENIES ANY NEEDS AT PRESENT TIME. WILL MONITOR PATIENT.
[2017-02-03 09:33] VITALS: BP 105/64
[2017-02-03 12:09] VITALS: BP 107/66
--- NOTE | 2017-02-03 14:04 | NUR ---
PATIENT SITTING UP IN A CHAIR. CALL LIGHT IN PATIENT'S REACH. WATCHING T.V. PATIENT DENIES ANY NEEDS AT PRESENT TIME. WILL MONITOR PATIENT.
[2017-02-03 20:00] VITALS: BP 121/72
--- NOTE | 2017-02-03 22:09 | NUR ---
REC'D LYING IN BED. ALERT AND ORIENTED X4. DENIED PAIN AT THIS TIME. IV TO RIGHT AC LEAKING, DC'D WITH CATHETER STILL INTACT. NEW 20G TO RIGHT WRIST, PATENT AND FLUSHES. INSTRUCTED TO CALL IF NEEDED ANYTHING, VERBALIZED UNDERSTANDING. NO DISTRESS NOTED. BED LOW, LOCKED, CALL LIGHT IN REACH.
[2017-02-04] VITALS: BP 114/61
[2017-02-04 05:48] LABS: BASOPHILS 0 % (0-2); EOSINOPHILS 0 % (0-7); HEMATOCRIT 33.9 % (42.0-54.0); IMMATURE GRANULOCYTES 0.2 % (0-5); LYMPHOCYTES 10.2 % (15-50); MCH 28.7 pg (26.0-34.0); MCHC 32.4 g/dL (31.0-37.0); MCV 88.5 fL (80.0-100.0); MEAN PLATELET VOLUME 9.7 fL (7.4-10.4); NEUTROPHILS 86.6 % (40-80); PLATELET COUNT 281 10x3/uL (130-400); RBC 3.83 10x6/uL (4.20-6.10); RDW 14.9 % (11.5-14.5)
[2017-02-04 05:53] LABS: WBC 4.9 10x3/uL (4.8-10.8)
[2017-02-04 06:26] LABS: ALBUMIN 2.7 g/dL (3.4-5.0); ALKALINE PHOSPHATASE 51 U/L (46-116); ALT (SGPT) 22 U/L (10-68); AMYLASE - SERUM 39 U/L (25-115); CALC OSMOLALITY 272 mosm/kg (275-300); CALCIUM 8.7 mg/dL (8.5-10.1); CARBON DIOXIDE 31.4 mmol/L (21.0-32.0); CHLORIDE - SERUM 99 mmol/L (98-107); CREATININE - SERUM 0.8 mg/dL (0.6-1.3); GLUCOSE 134 mg/dL (74-106); LIPASE 94 U/L (73-393); POTASSIUM - SERUM 4.1 mmol/L (3.5-5.1); PRO BNP 165 pg/mL (0-125); PROTEIN - SERUM 6.3 g/dL (6.4-8.2); SODIUM 135 mmol/L (136-145); UREA NITROGEN 14 mg/dL (7-18); eGFR NON AFRICAN AMERICAN > 90 mL/min (90-120)
--- NOTE | 2017-02-04 07:40 | NUR ---
PATIENT SITTING UP IN BED DRINKING COFFEE AT THIS TIME. IV INTACT. NO COMPLAINTS. CALL LIGHT WITHIN REACH.
[2017-02-04 08:30] VITALS: BP 108/67
--- NOTE | 2017-02-04 10:00 | NUR ---
PATIENT SITTING UP IN CHAIR CLEANING UP. NO OCMPLAINTS OR SIGNS OF DISTRESS. IV INTACT. CALL LIGHT WITHIN REACH.
--- NOTE | 2017-02-04 11:34 | NUR ---
Patient Name: SYL BHAT Admission Status: Elective Accout number: [id number] Admission Date: 01-31-2017 : 1950 Admission Diagnosis:ACUTE AND CHRONIC POSTPROCEDURAL RESPIRATORY FAILURE Attending: OLGA Current LOS: 4 Anticipated DC Date: Planned Disposition: Home Primary Insurance: [employer] ADV Discharge Planning Comments: CM met with patient to assess discharge planning needs. Patient stated that he is independent with his ADL's and lives with his (Barb) where he plans to return. Barb will be the one to drive him home at discharge. he does not have and stairs or steps in his home. He has home O2, cane and shower chair. He said he does not want to use home health at this time. CM will continue to follow and assist with discharge planning needs. PCP: Cassi Bentley on [address] () Knitter Wire Mesh: Adriana Johnson * Is the patient Alert and Oriented? Yes 0 * How many steps to enter\exit or inside your home? 0 0 * PCP CASSI 0 * Pharmacy [facility] 0 * Preadmission Environment Home with Family 0 * ADLs Independent 0 * Equipment Cane Oxygen Shower Chair 0 * List name and contact numbers for known caregivers / representatives who currently or will assist patient after discharge: BARB BHAT 0 * Community resources currently utilized None 0 * Additional services required to return to the preadmission environment? No 0 * Can the patient safely return to the preadmission environment? Yes 0 * Has this patient been hospitalized within the prior 30 days at any hospital? No 0 Grand Total: 0
--- NOTE | 2017-02-04 12:50 | NUR ---
NUTRITION F/U CHART REVIEWED, PT VISIT X2. GOOD PO INTAKE ADA DIET. PT REPORTS PREVIOUS DM DIET EDU. CHECKS BS AT HOME. HAS NO QUESTIONS AT THIS TIME. RD FOLLOWING
[2017-02-04 13:25] VITALS: BP 115/68
--- NOTE | 2017-02-04 15:20 | NUR ---
PATIENT IN BED WITH IV INTACT. NO COMPLAINTS AT THIS TIME. CALL IGHTW ITHINR EACH.
[2017-02-04 16:00] VITALS: BP 142/67
--- NOTE | 2017-02-04 19:30 | NUR ---
RECIEVED SHIFT REPORT. PT IS LAYING IN BED. ALERT AND ORIENTED AND ABLE TO VERBALIZE NEEDS. IV IS PATENT AND SALINE LOC AT THIS TIME. O2 @ 1.5 PER NASAL CANNULA. PT IS AMBULATORY BUT WAS INSTRUCTED TO CALL FOR ANY ASSISTANCE NEEDED. PT DENIES ANY PAIN AT THIS TIME. NO NEEDS ARE VERBALIZED AT THIS TIME. WILL CONTINUE TO MONITOR. SIDE RAILS ARE UP X 2. BED IS IN LOWEST POSITION. CALL LIGHT IS WITHIN REACH.
--- NOTE | 2017-02-04 20:38 | NUR ---
SHIFT ASSESSMENT COMPLETED. NIGHT MEDS GIVEN WITH NO PROBLEMS. NO NEEDS ARE VOICED. WILL MONITOR. SIDE RAILS X 2. BED LOW. CALL LIGHT IN REACH.
[2017-02-05] VITALS: BP 114/73
[2017-02-05 04:00] VITALS: BP 109/77
[2017-02-05 06:25] LABS: BASOPHILS 0.2 % (0-2); EOSINOPHILS 0 % (0-7); HEMATOCRIT 37.1 % (42.0-54.0); HEMOGLOBIN 12.2 g/dL (13.5-17.5); LYMPHOCYTES 28.8 % (15-50); MCH 29.1 pg (26.0-34.0); MCHC 32.9 g/dL (31.0-37.0); MCV 88.5 fL (80.0-100.0); MEAN PLATELET VOLUME 9.7 fL (7.4-10.4); MONOCYTES 13.6 % (2-11); NEUTROPHILS 56.4 % (40-80); PLATELET COUNT 273 10x3/uL (130-400); RBC 4.19 10x6/uL (4.20-6.10); RDW 14.8 % (11.5-14.5)
[2017-02-05 06:51] LABS: ALKALINE PHOSPHATASE 54 U/L (46-116); CALC OSMOLALITY 276 mosm/kg (275-300); CALCIUM 9.1 mg/dL (8.5-10.1); CHLORIDE - SERUM 95 mmol/L (98-107); CREATININE - SERUM 0.8 mg/dL (0.6-1.3); GLUCOSE 90 mg/dL (74-106); PROTEIN - SERUM 6.6 g/dL (6.4-8.2); SODIUM 138 mmol/L (136-145); UREA NITROGEN 16 mg/dL (7-18); eGFR NON AFRICAN AMERICAN > 90 mL/min (90-120)
[2017-02-05 06:59] LABS: ALT (SGPT) 37 U/L (10-68); POTASSIUM - SERUM 3.2 mmol/L (3.5-5.1)
--- NOTE | 2017-02-05 07:30 | NUR ---
RECIEVED PT DURING WALKING ROUNDS, PT RESTING IN BED WITH COMPLAINTS OF PAIN OF A 7 ON A SCALE OF 1-10. PAGE PLACED TO DR ABOUT MEDICATION TO BE GIVEN. ASSESSMENT DONE PER FLOWSHEET. BED IN LOW POSITION AND CALL LIGHT WITHIN REACH.
[2017-02-05 08:25] VITALS: BP 113/73
[2017-02-05 11:53] VITALS: BP 108/72
[2017-02-05] MEDS ORDERED: SINGULAIR10 MG PO (13:43)
[2017-02-05] MEDS ORDERED: FLUTICASONE PRO16 GM NASAL (13:44)
[2017-02-05] MEDS ORDERED: COLACE100 MG PO (13:45)
[2017-02-05] MEDS ORDERED: PREDNISONE20 MG PO (13:45)
[2017-02-05] MEDS ORDERED: FLORAJEN3 CAPS460 MG PO (13:45)
[2017-02-05] MEDS ORDERED: OMNICEF300 MG PO (13:46)
--- NOTE | 2017-02-05 15:11 | NUR ---
PATIENT DSICHARING HOME TODAY WITH . JAIRO DENIES ANY HOME HEALTH NEEDS AND HAS HOME O2 ALREADY.
--- NOTE | 2017-02-05 17:36 | NUR ---
IV REMOVED AND PT DISCHARGED VIA WHEELCHAIR TO HOME WITH A FAMILY MEMBER. WILL CONTINUE TO MONITOR.
--- NOTE | 2017-02-05 17:37 | NUR ---
IV REMOVED AND PT DISCHARGED TO HOME WITH A FAMILY MEMBER.
== END 2017-02-05 17:37 | disposition home or self-care (01) | DRG 177 ==
LOC: D.OPS 08:48 → D.MS 13:10 → D.ICU 13:10 → D.MS 02-01 17:22 → D.SDCHOLD 02-01 18:30 → D.MS 02-01 18:33 → D.OPS 02-12 08:00
PROVIDERS: Family Medicine; Internal Medicine Pulmonary Disease; ADMIT Internal Medicine Gastroenterology
PROC: 5A09357 Assistance with Respiratory Ventilation, Less than 24 Consecutive Hours, Continuous Positive Airway Pressure (ICD-10-PCS; 2017-01-31)
PROC: 0D758ZZ Dilation of Esophagus, Via Natural or Artificial Opening Endoscopic (ICD-10-PCS; principal; 2017-01-31 11:30)
DX: J69.0 Pneumonitis due to inhalation of food and vomit (principal); J96.22 Acute and chronic respiratory failure with hypercapnia; J96.21 Acute and chronic respiratory failure with hypoxia; I50.33 Acute on chronic diastolic (congestive) heart failure; J44.1 Chronic obstructive pulmonary disease with (acute) exacerbation; J44.0 Chronic obstructive pulmonary disease with (acute) lower respiratory infection; J18.9 Pneumonia, unspecified organism; K22.70 Barrett's esophagus without dysplasia; R13.10 Dysphagia, unspecified; I11.0 Hypertensive heart disease with heart failure; E11.9 Type 2 diabetes mellitus without complications; J32.9 Chronic sinusitis, unspecified; K21.0 Gastro-esophageal reflux disease with esophagitis; E78.5 Hyperlipidemia, unspecified; Z85.118 Personal history of other malignant neoplasm of bronchus and lung; Z85.07 Personal history of malignant neoplasm of pancreas; Z87.891 Personal history of nicotine dependence

== ENCOUNTER 2017-03-04 11:59 | Inpatient (IN) | payer MEDICARE ==
[~2017-03-04] VITALS: Ht 170.2 cm; Wt 67.1 kg
[~2017-03-04 11:59] MED LIST changes: +COLACE100 MG PO; +FLORAJEN3 CAPS460 MG PO; +FLUTICASONE PRO16 GM NASAL; +OMNICEF300 MG PO; +PREDNISONE20 MG PO; +SINGULAIR10 MG PO
[2017-03-04 13:35] LABS: BASOPHILS 0.2 % (0-2); EOSINOPHILS 0.1 % (0-7); HEMATOCRIT 36.6 % (42.0-54.0); HEMOGLOBIN 11.6 g/dL (13.5-17.5); IMMATURE GRANULOCYTES 0.5 % (0-5); LYMPHOCYTES 11.7 % (15-50); MCH 28.6 pg (26.0-34.0); MCHC 31.7 g/dL (31.0-37.0); MCV 90.4 fL (80.0-100.0); MEAN PLATELET VOLUME 9.5 fL (7.4-10.4); NEUTROPHILS 76.5 % (40-80); PLATELET COUNT 313 10x3/uL (130-400); RBC 4.05 10x6/uL (4.20-6.10); RDW 16.6 % (11.5-14.5)
[2017-03-04 13:52] LABS: ALBUMIN 2.6 g/dL (3.4-5.0); ANION GAP 9.4 mmol/L (8-16); BILIRUBIN - TOTAL 0.78 mg/dL (0.2-1.3); CALCIUM 9.1 mg/dL (8.5-10.1); CARBON DIOXIDE 36.7 mmol/L (21.0-32.0); CREATININE - SERUM 1.1 mg/dL (0.6-1.3); POTASSIUM - SERUM 4.1 mmol/L (3.5-5.1); PROTEIN - SERUM 6.8 g/dL (6.4-8.2)
[2017-03-04 14:01] LABS: APPEARANCE HAZY (CLEAR); BILIRUBIN NEGATIVE (NEGATIVE); COLOR DK YELLOW (YELLOW); GLUCOSE NEGATIVE (NEGATIVE); KETONE NEGATIVE (NEGATIVE); NITRITE NEGATIVE (NEGATIVE); PROTEIN 2+ mg/dL (NEGATIVE); SPECIFIC GRAVITY 1.015 (1.005-1.020)
[2017-03-04 14:02] LABS: BACTERIA MODERATE /hpf (NONE SEEN); EPITHELIAL CELLS 0-5 /hpf (0-5); GRANULAR CAST 0-5 /lpf (NONE SEEN); HYALINE CAST OCC /lpf (NONE SEEN); MUCUS >1+ /lpf (NONE SEEN); RED CELLS - URINE 0-5 /hpf (0-5); WHITE CELLS - URINE 0-5 /hpf (0-5)
[2017-03-04 14:03] LABS: AMORPHOUS SEDIMENT <1+ /lpf (NONE SEEN); WAXY CAST 0-5 /lpf (NONE SEEN)
--- NOTE | 2017-03-04 20:00 | NUR ---
RECIEVED PT TO FLOOR FROM ED. VSS. ALERT AND ORIENTED AND ABLE TO VERBALIZE NEEDS. IV PATENT AND SALINE LOC AT THIS TIME. PT IS AMBULATORY BUT INSTRUCTED TO CALL FOR ANY ASSISTANCE NEEDED. O2 @ 2 PER NASAL CANNULA. PT STATES PAIN IS 5/10. NGT TO RIGHT NARE PATENT AND CONNECTED TO LIWS. NO NEEDS ARE VERBALIZED AT THIS TIME. PT IS ORIENTED TO ROOM AND USE OF CALL LIGHT. WILL CONTINUE TO MONITOR. SIDE RAILS ARE UP X 2. BED IS IN LOWEST POSITION. CALL LIGHT IS WITHIN REACH.
--- NOTE | 2017-03-04 22:50 | NUR ---
ADMIT ASSESSMENT COMPLETED. FLUIDS HUNG PER ORDER. NO NEEDS ARE VOICED. MOUTH SWABS PROVIDED. WILL MONITOR. SIDE RAILS X 2. BED LOW. CALL LIGHT IN REACH.
[2017-03-04 23:12] VITALS: BP 101/68; BMI 27.3
[2017-03-05 04:00] VITALS: BP 94/59
--- NOTE | 2017-03-05 07:40 | NUR ---
MR BHAT WAS RECEIVED TODAY LYING IN BED. HE OFFERS NO COMPLAINTS. BED IS LOW, SIDE RAILS UP X 2 AND CALL LIGHT IN REACH. GEN- AWAKE AND ALERT. LUNGS- CLEAR. HEART- RRR. ABD- SOFT BS + TENDERNESS R AND L UPPER QUADRANTS. BS+. EXT- NO EDEMA. SCD'S INTACT. IV PATENT LEFT AC.
[2017-03-05 08:40] VITALS: BP 90/62
--- NOTE | 2017-03-05 10:35 | NUR ---
PT IS RESTING IN BED. HE OFFERS NO COMPLAINTS. IV PROTONIX GIVEN IV LEFT AC. IV PATENT. FLUSHED WITH NS.
[2017-03-05 10:51] LABS: BASOPHILS 0.1 % (0-2); EOSINOPHILS 0.2 % (0-7); HEMATOCRIT 31.9 % (42.0-54.0); IMMATURE GRANULOCYTES 0.4 % (0-5); LYMPHOCYTES 15.6 % (15-50); MCH 28.9 pg (26.0-34.0); MCHC 31.3 g/dL (31.0-37.0); MCV 92.2 fL (80.0-100.0); MEAN PLATELET VOLUME 9.6 fL (7.4-10.4); NEUTROPHILS 74.7 % (40-80); PLATELET COUNT 298 10x3/uL (130-400); RBC 3.46 10x6/uL (4.20-6.10); RDW 16.9 % (11.5-14.5); WBC 12.2 10x3/uL (4.8-10.8)
--- NOTE | 2017-03-05 10:59 | NUR ---
Patient Name: SYL BHAT Admission Status: ER Accout number: [id number] Admission Date: 03-04-2017 : 1950 Admission Diagnosis: Attending: NANI, Current LOS: 1 Anticipated DC Date: 03-08-2017 Planned Disposition: Home Primary Insurance: [employer] MEDICARE ADV Discharge Planning Comments: CM MET WITH PATIENT AND (ELYSE) REGARDING D/C NEEDS AND PLANS. PATIENT STATED HIS WILL DRIVE HIM HOME AT DISCHARGE. PATIENT HAS 2 STEPS W/RAILS AND DOES HAVE STAIRWAY IN HOME BUT DOES NOT USE. PATIENT IS INDEPENDENT WITH HIS CARE AND HAS A WALKER,SHOWER CHAIR, CANE, OXYGEN, PORT OXYGEN, GLUCOMETER, AND NEBULIZER AT HOME. PATIENTS PCP IS DR. YE AND PHARMACY IS [facility]. ON [facility]. PATIENT DOES NOT WANT HH AT THIS TIME BUT HAS HAD [facility] IN THE PAST. PCP DR[facility] CAS[facility] [phone] ELYSE () [phone] Water/Wastewater Engineer: Rosey Brown Is the patient Alert and Oriented? Yes 0 * How many steps to enter\exit or inside your home? 2 W/RAILS 0 * PCP DR. YE 0 * Pharmacy [facility]. [facility]. 0 * Preadmission Environment Home with Family 0 * ADLs Independent 0 * Equipment Cane Glucometer Nebulizer Oxygen Shower Chair Walker 0 * Other Equipment PORTABLE O2 ([facility]) SHE THINKS SUPPLIES OXYGEN 0 * List name and contact numbers for known caregivers / representatives who currently or will assist patient after discharge: ELYSE () [phone] 0 * Community resources currently utilized None 0 * Additional services required to return to the preadmission environment? Yes 0 * Can the patient safely return to the preadmission environment? Yes 0 * Has this patient been hospitalized within the prior 30 days at any hospital? No 0 Grand Total: 0
[2017-03-05 11:13] LABS: ALBUMIN 2.4 g/dL (3.4-5.0); ALKALINE PHOSPHATASE 54 U/L (46-116); ALT (SGPT) 11 U/L (10-68); BILIRUBIN - TOTAL 0.81 mg/dL (0.2-1.3); CALCIUM 8.4 mg/dL (8.5-10.1); CHLORIDE - SERUM 104 mmol/L (98-107); PROTEIN - SERUM 5.5 g/dL (6.4-8.2); SODIUM 148 mmol/L (136-145)
[2017-03-05 11:16] LABS: CALC OSMOLALITY 297 mosm/kg (275-300); CREATININE - SERUM 0.7 mg/dL (0.6-1.3); GLUCOSE 113 mg/dL (74-106); POTASSIUM - SERUM 3.3 mmol/L (3.5-5.1); UREA NITROGEN 22 mg/dL (7-18); eGFR NON AFRICAN AMERICAN > 90 mL/min (90-120)
--- NOTE | 2017-03-05 12:37 | NUR ---
BS WAS 126. NO INSULIN GIVEN. PT HAS BEEN NPO.
[2017-03-05 12:45] VITALS: BP 92/61
--- NOTE | 2017-03-05 14:13 | NUR ---
DR CARDOZA IS HERE TO SEE PT. WILL REVIEW NEW ORDERS.
[2017-03-05 15:28] VITALS: BMI 27.2
--- NOTE | 2017-03-05 18:49 | NUR ---
PT IS RESTING IN BED AND OFFERS NO COMPLAINTS. BS WAS 95. NO INSULIN GIVEN. BED IS LOW, SIDE RAILS UP X 2 AND CALL LIGHT IN REACH.
--- NOTE | 2017-03-05 19:20 | NUR ---
RECIEVED SHIFT REPORT. PT IS LYING IN BED. ALERT AND ORIENTED AND ABLE TO VERBALIZE NEEDS. IV IS PATENT AND FLUIDS ARE RUNNING PER ORDER. NGT TO RIGHT NARE PATENT AND CONNECTED TO LIWS. PT STATES PAIN IS 5/10. PT IS AMBULATORY BUT WAS INSTRUCTED TO CALL FOR ANY ASSISTANCE NEEDED. NO NEEDS ARE VERBALIZED AT THIS TIME. WILL CONTINUE TO MONITOR. SIDE RAILS ARE UP X 2. BED IS IN LOWEST POSITION. CALL LIGHT IS WITHIN REACH.
--- NOTE | 2017-03-05 20:25 | NUR ---
SHIFT ASSESSMENT COMPLETED. PT HAS NO NEEDS AT THIS TIME. WILL MONITOR. SIDE RAILS X 2. BED LOW. CALL LIGHT IN REACH.
[2017-03-05 20:44] VITALS: BP 95/64
[2017-03-06 00:27] VITALS: BP 90/58
[2017-03-06 04:59] VITALS: BP 95/57
[2017-03-06 06:19] LABS: BASOPHILS 0.2 % (0-2); EOSINOPHILS 0.4 % (0-7); HEMATOCRIT 30.5 % (42.0-54.0); HEMOGLOBIN 9.4 g/dL (13.5-17.5); IMMATURE GRANULOCYTES 0.5 % (0-5); LYMPHOCYTES 15.6 % (15-50); MCH 28.8 pg (26.0-34.0); MCHC 30.8 g/dL (31.0-37.0); MCV 93.6 fL (80.0-100.0); MEAN PLATELET VOLUME 9.4 fL (7.4-10.4); MONOCYTES 10.6 % (2-11); NEUTROPHILS 72.7 % (40-80); PLATELET COUNT 258 10x3/uL (130-400); RBC 3.26 10x6/uL (4.20-6.10); RDW 16.7 % (11.5-14.5); WBC 10.9 10x3/uL (4.8-10.8)
[2017-03-06 06:52] LABS: ALBUMIN 2.2 g/dL (3.4-5.0); ALKALINE PHOSPHATASE 50 U/L (46-116); ALT (SGPT) 11 U/L (10-68); BILIRUBIN - TOTAL 0.78 mg/dL (0.2-1.3); CALC OSMOLALITY 293 mosm/kg (275-300); CALCIUM 8.4 mg/dL (8.5-10.1); CARBON DIOXIDE 36.3 mmol/L (21.0-32.0); CHLORIDE - SERUM 105 mmol/L (98-107); CREATININE - SERUM 0.7 mg/dL (0.6-1.3); GLUCOSE 91 mg/dL (74-106); LIPASE 1447 U/L (73-393); POTASSIUM - SERUM 3.2 mmol/L (3.5-5.1); PROTEIN - SERUM 5.7 g/dL (6.4-8.2); SODIUM 147 mmol/L (136-145); UREA NITROGEN 19 mg/dL (7-18); eGFR NON AFRICAN AMERICAN > 90 mL/min (90-120)
--- NOTE | 2017-03-06 08:15 | NUR ---
MR BHAT IS LYING IN BED. AWAKE AND ALERT. LUNGS- CLEAR. HEART- RRR. ABD- SOFT BS+ WITH TENDERNESS NOTED R AND L UPPER QUADRANT. EXT- NO EDEMA NOTED. NG TUBE NOTED R NARE WITH LIGHT YELLOW FLUID. IV NOTED LEFT AC. TELEMAETRY INTACT. HE HAS O2 @ 1.5 LITERS. BED IS LOW, SIDE RAILS UP X 2 AND CALL LIGHT IN REACH. [facility]URES IS HERE TO GET PT FOR GASTROGRAFFIN THROUGH NG TUBE TODAY BY DR ESPINOZA. HIS K+ THIS AM IS LOW AND WILL NEED POTASSIUM RIDERS. I WILL INITIATE THEM WHEN HE RETURNS FROM PROCEDURE. PT IS UP AD BOWEN AND UP TO BATHROOM. HIS BS THIS AM WAS 91.
[2017-03-06 08:25] VITALS: BP 99/66
--- NOTE | 2017-03-06 09:03 | NUR ---
PT IS BACK FROM X-RAY,. NG TUBE BACK TO SUCTION. PT OFFERS NO COMPLAINTS.
[2017-03-06 12:00] VITALS: BP 103/61
--- NOTE | 2017-03-06 12:55 | NUR ---
PT REQUESTED ICE CHIPS. 2ND BAG OF KCL HUNG. PT OFFERS NO COMPLAINTS. BED IS LOW, SIDE RAILS UP X 2 AND CALL LIGHT IN REACH.
[2017-03-06 16:00] VITALS: BP 106/64
[2017-03-06 17:02] VITALS: Ht 170.2 cm; Wt 67.1 kg
--- NOTE | 2017-03-06 17:11 | NUR ---
BS IS 82. NO INSULIN NEEDED. PT HAS BEEN NPO EXCEPT ICE CHIPS. NS WITH 40 MEQ KCL STATRTED AT 75 CC/HR. 3RD 10 MEQ KCL RIDER BAG STARTED. TALKED TO ALLI HERNANDEZ AND SHE WANTS THEM BOTH HUNG. BED IS LOW. SIDE RAILS UP X 2 AND CALL LIGHT IN REACH.
--- NOTE | 2017-03-06 19:30 | NUR ---
RECIVED SHIFT REPORT. PT IS LYING IN BED. ALERT AND ORIENTED AND ABLE TO VERBALIZE NEEDS. IV IS PATENT AND FLUIDS ARE RUNNING PER ORDER. NGT TO RIGHT NARE PATENT AND CONNECTED TO LIWS. PT IS AMBULATORY BUT WAS INSTRUCTED TO CALL FOR ANY ASSISTANCE NEEDED. O2 @ 1.5 PER NASAL CANNULA. PT STATES PAIN IS 5/10. NO NEEDS ARE VERBALIZED AT THIS TIME. WILL CONTINUE TO MONITOR. SIDE RAILS ARE UP X 2. BED IS IN LOWEST POSITION. CALL LIGHT IS WITHIN REACH.
[2017-03-06 20:55] VITALS: BP 99/61
--- NOTE | 2017-03-06 20:57 | NUR ---
SHIFT ASSESSMENT COMPLETED. PT C/O PAIN 08/15. ADMINISTERED PRESCRIBED PRN MORPHINE PER ORDER. DENIES FURTHER NEEDS. WILL MONITOR. SIDE RAILS X 2. BED LOW. CALL LIGHT IN REACH.
[2017-03-07 05:47] LABS: BASOPHILS 0.1 % (0-2); EOSINOPHILS 0.3 % (0-7); HEMATOCRIT 28.5 % (42.0-54.0); HEMOGLOBIN 8.8 g/dL (13.5-17.5); IMMATURE GRANULOCYTES 0.9 % (0-5); LYMPHOCYTES 12.9 % (15-50); MCH 28.9 pg (26.0-34.0); MCHC 30.9 g/dL (31.0-37.0); MCV 93.4 fL (80.0-100.0); MEAN PLATELET VOLUME 9.3 fL (7.4-10.4); MONOCYTES 9.5 % (2-11); NEUTROPHILS 76.3 % (40-80); PLATELET COUNT 254 10x3/uL (130-400); RBC 3.05 10x6/uL (4.20-6.10); RDW 16.8 % (11.5-14.5); WBC 10.4 10x3/uL (4.8-10.8)
[2017-03-07 06:12] LABS: ALBUMIN 2.2 g/dL (3.4-5.0); ALKALINE PHOSPHATASE 51 U/L (46-116); ALT (SGPT) 10 U/L (10-68); BILIRUBIN - TOTAL 0.63 mg/dL (0.2-1.3); CALCIUM 8.2 mg/dL (8.5-10.1); CARBON DIOXIDE 32.2 mmol/L (21.0-32.0); CHLORIDE - SERUM 108 mmol/L (98-107); CREATININE - SERUM 0.7 mg/dL (0.6-1.3); GLUCOSE 111 mg/dL (74-106); POTASSIUM - SERUM 3.6 mmol/L (3.5-5.1); PROTEIN - SERUM 5.6 g/dL (6.4-8.2); SODIUM 147 mmol/L (136-145); eGFR NON AFRICAN AMERICAN > 90 mL/min (90-120)
[2017-03-07 06:15] LABS: CALC OSMOLALITY 293 mosm/kg (275-300); UREA NITROGEN 14 mg/dL (7-18)
--- NOTE | 2017-03-07 07:30 | NUR ---
DR BLANTON IS HERE TO SEE PT AND HIS . LAPAROSCOPIC GASTROJEJUNECTOMY DISCUSSED WITH PT.
[2017-03-07 08:00] VITALS: BP 100/66
--- NOTE | 2017-03-07 08:18 | NUR ---
CONSENT'S SIGNED FOR SURGERY. PATIENT AND HAVE NO QUESTIONS.
--- NOTE | 2017-03-07 09:05 | NUR ---
PRE OP MEDS GIVEN WITH A SIP OF WATER. PT OFFERS NO COMPLAINTS. FAMILY AT BEDSIDE.
--- NOTE | 2017-03-07 09:30 | NUR ---
PT PICKED UP FOR SURGERY VIA BED.
--- NOTE | 2017-03-07 12:22 | NUR ---
NUTRITION F/U CHART REVIEWED. PT CURRENTLY OOR FOR GASTROJEJUNOSTOMY. MAY BENEFIT FROM PROCALAMINE AND INTRALIPIDS IF UNABLE TO TOLERATE PO [address] FOLLOWING
[2017-03-07 14:04] VITALS: BP 95/60
--- NOTE | 2017-03-07 14:21 | NUR ---
PT RECEIVED FROM RECOVERY. HE IS SLEEPING BUT EASILY AWAKENS. VSS. O2 AT 2 LITERS BY NC. LUNGS- CLEAR. HEART- RRR. ABD- SOFT WITH TENDERNESS. VERTICAL INCISION WITH PRIMAPORE DRESSING. 3 SMALL LOWER ABDOMINAL INCISIONS WITH BANDAIDS NOTED, CLEAN AND DRY. EXT SCD'S INTACT AND INITIATED. IV - PORT LEFT CHEST. BED IS LOW, SIDE RAILS UP X 2 AND CALL LIGHT IN REACH.
[2017-03-07 14:35] VITALS: BP 95/60
--- NOTE | 2017-03-07 16:14 | NUR ---
MR BHAT IS RESTING. HE AWAKENS EASILY. HE SAYS HE IS NOT IN PAIN WHEN ASKED. HE HAS BEEN RESTING WELL. BED IS LOW, SIDE RAILS UP X 2 AND CALL LIGHT IN REACH. DRESSINGS ARE CLEAN AND DRY ON ABDOMEN. IV PATENT LEFT PORT SITE.
--- NOTE | 2017-03-07 16:49 | OP ---
PATIENT NAME: SYL BHAT MEDICAL RECORD: [id number] :50 LOCATION:[id number] ADMISSION DATE:03/04/17 SURGEON: GRACE WHITING MD DATE OF OPERATION: 03/07/2017 DATE OF OPERATION: 03/07/2017 SURGEON: Grace Whiting MD PREOPERATIVE DIAGNOSIS: Gastric outlet obstruction. POSTOPERATIVE DIAGNOSIS: Gastric outlet obstruction. PROCEDURE PERFORMED: 1. Laparoscopic lysis of adhesions. 2. Laparotomy with gastrojejunostomy. ANESTHESIA: General. COMPLICATIONS: None. SPECIMENS: Gastrojejunostomy anastomosis. ESTIMATED BLOOD LOSS: 75 cc. Case was clean contaminated. OPERATIVE COURSE: After consent was obtained, the patient was taken to the operating room and placed in the supine position on the operating table. Next, general anesthesia was given via endotracheal intubation after a timeout was taken to confirm the correct patient and procedure. The abdomen was prepped and draped in typical sterile fashion. Local anesthetic was injected to the right upper quadrant. A stab incision was made with 11-blade scalpel. Using a 5-mm bladeless optical trocar, the abdomen was entered under direct laparoscopic vision. Adequate pneumoperitoneum was achieved. The abdominal cavity was inspected. No evidence of bowel injury. No evidence of bleeding. At this time, 2 additional trocars were placed through the right lateral quadrant. Laparoscopic lysis of adhesions was performed along the anterior midline at the previous laparotomy site. The stomach was taken off the anterior abdominal wall and it appears that the patient had a previous gastrostomy tube placement. This was done laparoscopically. Laparoscopic lysis of adhesions was performed of the small bowel. The transverse colon was retracted cephalad. The pancreatic head tumor was so enlarged causing significant displacement of the transverse colon. At this time, the ligament of Treitz cannot properly be identified. At this time, the laparoscopy was terminated. Upper midline incision was made with a 15 blade scalpel. Dissection continued to the level of the external oblique through the fascia with electrocautery. An Edmundo retractor was placed. At this time, the greater omentum and transverse colon were retracted and the ligament of Treitz was identified, going approximately 30 to 40 cm distal from the ligament of Treitz, a loop of small bowel was mobilized to the greater curve of the stomach. The short gastrics were taken along the antrum and greater curvature of the stomach. Gastrotomy and enterotomy were created using the linear cutting BIRD stapler, a gastrojejunostomy was created. The common enterotomy was then closed with a repeat firing of the linear cutting stapler. The staple line was imbricated using 3-0 Vicryl suture. At this time, the OPERATIVE REPORT [id number] SYL BHAT abdominal cavity was copiously irrigated and suctioned. Careful attention was paid to hemostasis. The incision was then closed with #1 looped PDS. Skin was closed with sunny. At the end of the case, all needle and instrument counts were correct. No complications occurred. The patient was extubated and transferred to the PACU in stable condition. TRANSINT:[id number] Voice Confirmation ID: [id number] DOCUMENT ID: [id number] GRACE WHITING MD at 1649 CC: [id number] DICTATION DATE: 03/07/17 1246 THERMAL INTELLIGENCE ANALYST: 03/07/17 1555 ADM IN [facility] [address] [id number]
[2017-03-07 20:16] VITALS: BP 88/61
[2017-03-07 23:39] VITALS: BP 98/63
--- NOTE | 2017-03-08 04:41 | NUR ---
ASSESSED AT THE BEGINNING OF THE SHIFT. PT IS ALERT AND ORIENTED, ABLE TO VERBALIZE NEEDS. HIS DRESSING TO THE ABD ARE ALL CLEAN DRY AND INTACT. O2 IS AT 2 LITERS AND HAS A URINAL AT THE BEDSIDE WHICH IS BEING USED. HE HAS A LEFT PORT IN PLACE AND FLUIDS ARE GOING ORDERED. THE BED IS LOW, RAILS UP X'S 2 WITH THE CALL LIGHT AT HAND.
[2017-03-08 05:42] VITALS: BP 106/66
[2017-03-08 06:45] LABS: HEMATOCRIT 29.1 % (42.0-54.0); HEMOGLOBIN 9.1 g/dL (13.5-17.5); LYMPHOCYTES 11.3 % (15-50); MCH 28.8 pg (26.0-34.0); MCHC 31.3 g/dL (31.0-37.0); MCV 92.1 fL (80.0-100.0); MEAN PLATELET VOLUME 8.7 fL (7.4-10.4); NEUTROPHILS 78.3 % (40-80); RBC 3.16 10x6/uL (4.20-6.10); RDW 16.5 % (11.5-14.5)
[2017-03-08 06:47] LABS: PLATELET COUNT 340 10x3/uL (130-400); WBC 13.7 10x3/uL (4.8-10.8)
[2017-03-08 07:04] LABS: ALBUMIN 1.9 g/dL (3.4-5.0); ALKALINE PHOSPHATASE 44 U/L (46-116); CALC OSMOLALITY 298 mosm/kg (275-300); CALCIUM 8.2 mg/dL (8.5-10.1); CARBON DIOXIDE 27.5 mmol/L (21.0-32.0); CHLORIDE - SERUM 113 mmol/L (98-107); CREATININE - SERUM 0.7 mg/dL (0.6-1.3); GLUCOSE 127 mg/dL (74-106); PROTEIN - SERUM 5.3 g/dL (6.4-8.2); SODIUM 149 mmol/L (136-145); UREA NITROGEN 14 mg/dL (7-18); eGFR NON AFRICAN AMERICAN > 90 mL/min (90-120)
[2017-03-08 07:20] LABS: ALT (SGPT) 14 U/L (10-68); POTASSIUM - SERUM 4.6 mmol/L (3.5-5.1)
--- NOTE | 2017-03-08 08:03 | NUR ---
PT SEEN AND ASSESSED. NO COMPLAINTS AT PRESENT. STATES PAIN CONTROL IS GOOD AND AT A '0' FOR NOW. SCDS ON BILAT. VOIDS WITHOUT PROBLEMS. ABDOMINAL DRESSING CLEAN DRY AND INTACT. NO DRAINS NOTED. CONT. PULSE OX ON AT 98%. CALL LIGHT IN REACH
[2017-03-08 09:06] VITALS: BP 97/62
[2017-03-08 12:50] VITALS: BP 105/72
[2017-03-08 17:57] VITALS: BP 114/75
--- NOTE | 2017-03-09 00:18 | NUR ---
pt in bed attention focused towards televison provided another vomit bag per request. old bag contained 200ml of brown emesis.
--- NOTE | 2017-03-09 02:20 | NUR ---
RN NOTE: PT LYING IN SUPINE POSITION POSITIONED ONTO THE LEFT SIDE, WITH EYES CLOSED AND UNLABORED BREATHING. LEFT PORT ACCESSED WITH PROCALAMINE INFUSING AT 100 ML / HR. TRANSFER CAR OPERATOR DRIER / MORPHINE IN USE FOR PAIN CONTROL. NPO EXCEPT ICE CHIPS IN PLACE. WILL CONTINUE TO MONITOR FOR NEEDS. CALL LIGHT WITHIN REACH.
--- NOTE | 2017-03-09 04:11 | NUR ---
PT IN BED RESTING. WILL CONTINUE TO MONITOR
[2017-03-09 05:24] LABS: BASOPHILS 0.2 % (0-2); EOSINOPHILS 0 % (0-7); HEMATOCRIT 30.8 % (42.0-54.0); HEMOGLOBIN 9.6 g/dL (13.5-17.5); LYMPHOCYTES 7.6 % (15-50); MCH 28.7 pg (26.0-34.0); MCHC 31.2 g/dL (31.0-37.0); MCV 91.9 fL (80.0-100.0); MEAN PLATELET VOLUME 9.3 fL (7.4-10.4); MONOCYTES 7.9 % (2-11); NEUTROPHILS 83.3 % (40-80); PLATELET COUNT 335 10x3/uL (130-400); RBC 3.35 10x6/uL (4.20-6.10); RDW 16.9 % (11.5-14.5)
[2017-03-09 06:27] LABS: ALBUMIN 1.9 g/dL (3.4-5.0); ALKALINE PHOSPHATASE 54 U/L (46-116); ALT (SGPT) 16 U/L (10-68); CALC OSMOLALITY 295 mosm/kg (275-300); CALCIUM 9.2 mg/dL (8.5-10.1); CHLORIDE - SERUM 109 mmol/L (98-107); CREATININE - SERUM 0.7 mg/dL (0.6-1.3); GLUCOSE 158 mg/dL (74-106); POTASSIUM - SERUM 4.3 mmol/L (3.5-5.1); PROTEIN - SERUM 5.8 g/dL (6.4-8.2); SODIUM 146 mmol/L (136-145); eGFR NON AFRICAN AMERICAN > 90 mL/min (90-120)
[2017-03-09 06:28] LABS: UREA NITROGEN 18 mg/dL (7-18)
--- NOTE | 2017-03-09 07:56 | NUR ---
RECEIVED REPORT, WILL ASSUME CARE OF PT, PT DENIES ANY NEEDS AT THIS TIME, IV-L. [id number], AUTOS DISASSEMBLER-1MG, Q10 MIN, 10MG LOCKOUT, BED IS LOW, SRX2, SCD ARE ON, CALL LIGHT IN REACH, WILL CONTINUE PLAN OF CARE
[2017-03-09 09:39] VITALS: BP 116/75
--- NOTE | 2017-03-09 10:22 | NUR ---
AWAKE AND ALERT. ORIENTED X3. REPORTS GOOD PAIN MANAGEMENT WITH ROLLER MAN. LUNGS ARE DIMINISHED THROUGHOUT ESPECIALLY IN LEFT. REPORTS PRODUCTIVE COUGH WITH THICH WHITISH SPUTUM.
--- NOTE | 2017-03-09 11:53 | NUR ---
BS-151-NO COVERAGE PT NPO
[2017-03-09 13:00] VITALS: BP 113/76
[2017-03-09 16:07] VITALS: BP 120/74
[2017-03-09 20:00] VITALS: BP 90/62
[2017-03-09 22:42] LABS: APPEARANCE CLEAR (CLEAR); BILIRUBIN NEGATIVE (NEGATIVE); COLOR AMBER (YELLOW); GLUCOSE NEGATIVE (NEGATIVE); KETONE NEGATIVE (NEGATIVE); NITRITE NEGATIVE (NEGATIVE); PROTEIN TRACE mg/dL (NEGATIVE); SPECIFIC GRAVITY 1.015 (1.005-1.020); UROBILINOGEN NORMAL (NORMAL)
[2017-03-10 04:00] VITALS: BP 103/73
[2017-03-10 06:41] LABS: BASOPHILS 0.1 % (0-2); EOSINOPHILS 0 % (0-7); HEMATOCRIT 27.8 % (42.0-54.0); HEMOGLOBIN 8.6 g/dL (13.5-17.5); IMMATURE GRANULOCYTES 1.2 % (0-5); LYMPHOCYTES 8.6 % (15-50); MCH 28.2 pg (26.0-34.0); MCHC 30.9 g/dL (31.0-37.0); MCV 91.1 fL (80.0-100.0); MEAN PLATELET VOLUME 9.4 fL (7.4-10.4); MONOCYTES 7.4 % (2-11); NEUTROPHILS 82.7 % (40-80); PLATELET COUNT 364 10x3/uL (130-400); RBC 3.05 10x6/uL (4.20-6.10); RDW 16.9 % (11.5-14.5); WBC 21.5 10x3/uL (4.8-10.8)
[2017-03-10 06:42] LABS: ALBUMIN 1.7 g/dL (3.4-5.0); ALKALINE PHOSPHATASE 52 U/L (46-116); ALT (SGPT) 15 U/L (10-68); CALC OSMOLALITY 290 mosm/kg (275-300); CALCIUM 8.7 mg/dL (8.5-10.1); CHLORIDE - SERUM 104 mmol/L (98-107); CREATININE - SERUM 0.8 mg/dL (0.6-1.3); GLUCOSE 145 mg/dL (74-106); POTASSIUM - SERUM 3.8 mmol/L (3.5-5.1); PROTEIN - SERUM 5.5 g/dL (6.4-8.2); SODIUM 142 mmol/L (136-145); eGFR NON AFRICAN AMERICAN > 90 mL/min (90-120)
[2017-03-10 06:43] LABS: UREA NITROGEN 27 mg/dL (7-18)
[2017-03-10 08:30] VITALS: BP 101/63
--- NOTE | 2017-03-10 09:36 | NUR ---
RESTING QUIETYLY IN BED AT THIS TIME. DENIES NEEDS.
[2017-03-10 12:31] VITALS: BP 100/71
--- NOTE | 2017-03-10 12:43 | NUR ---
RESTING QUEITLY IN BED. LUNGS CLEAR. DENIES NEEDS. FSBS 147. NO COVERAGE
[2017-03-10 16:11] VITALS: BP 91/62
[2017-03-10 20:00] VITALS: BP 91/63
[2017-03-11] VITALS (11 sets, daily range): BP systolic 90–131; BP diastolic 49–69
--- NOTE | 2017-03-11 01:12 | NUR ---
PT RESTING QUIETLY, EYES CLOSED. HAS BEEN NPO SINCE MIDNIGHT FOR AM PROCEDURE. OXYGNE AT 2L/NC. FOOD WRITER FOR PAIN CONTROL. COMPLETE ASSESSMENT PER FLOW-SHEET. WILL CONTINUE TO MONITOR.
[2017-03-11 06:13] LABS: BASOPHILS 0.1 % (0-2); EOSINOPHILS 0.2 % (0-7); HEMOGLOBIN 8.2 g/dL (13.5-17.5); IMMATURE GRANULOCYTES 1.4 % (0-5); MCH 28.6 pg (26.0-34.0); MCHC 31.5 g/dL (31.0-37.0); MCV 90.6 fL (80.0-100.0); MEAN PLATELET VOLUME 8.6 fL (7.4-10.4); MONOCYTES 7.5 % (2-11); NEUTROPHILS 81.8 % (40-80); PLATELET COUNT 307 10x3/uL (130-400); RBC 2.87 10x6/uL (4.20-6.10); RDW 16.9 % (11.5-14.5); WBC 18.4 10x3/uL (4.8-10.8)
[2017-03-11 06:23] LABS: APTT 31.9 SECONDS (22.8-39.4); INR 1.12 (0.85-1.17)
[2017-03-11 06:33] LABS: ALBUMIN 1.7 g/dL (3.4-5.0); ALKALINE PHOSPHATASE 44 U/L (46-116); ALT (SGPT) 14 U/L (10-68); BILIRUBIN - TOTAL 0.55 mg/dL (0.2-1.3); CALC OSMOLALITY 282 mosm/kg (275-300); CALCIUM 8.3 mg/dL (8.5-10.1); CARBON DIOXIDE 32.6 mmol/L (21.0-32.0); CHLORIDE - SERUM 102 mmol/L (98-107); CREATININE - SERUM 0.7 mg/dL (0.6-1.3); GLUCOSE 144 mg/dL (74-106); POTASSIUM - SERUM 3.9 mmol/L (3.5-5.1); PROTEIN - SERUM 5.4 g/dL (6.4-8.2); SODIUM 137 mmol/L (136-145); UREA NITROGEN 30 mg/dL (7-18); eGFR NON AFRICAN AMERICAN > 90 mL/min (90-120)
--- NOTE | 2017-03-11 08:51 | NUR ---
PT RESTING IN BED. PT HAS BEEN NPO SINCE MIDNIGHT. PT FAMILY AT BEDSIDE. NO BP MEDS ADMINISTERED DUE TO BP 95/67. WCTM.
--- NOTE | 2017-03-11 12:46 | NUR ---
PRE MEDS GIVEN FOR PRBC ADMINISTRATION.
--- NOTE | 2017-03-11 13:41 | NUR ---
PT FIRST UNIT OF BLOOD STARTED. PT VS STABLE. PT STATES NO DISCOMFORT. WCTM.
--- NOTE | 2017-03-11 14:41 | NUR ---
PT TAKEN DOWN FOR THORACENTESIS. PT BLOOD STILL INFUSING. PT TOLERATING WELL.
--- NOTE | 2017-03-11 15:29 | NUR ---
PT RETURNED FROM PROCEDURE. VS STABLE. WCTM.
[2017-03-11 16:32] LABS: PROTEIN - BODY FLUID 2.3 G/DL
[2017-03-11 16:52] LABS: NEUT - BF 81 %
--- NOTE | 2017-03-11 18:26 | NUR ---
PT TO GI LAB PER BED FOR PROCEDURE
--- NOTE | 2017-03-11 20:25 | NUR ---
REC'D PT FROM RECOVERY. PATIENT O2 ON 2L IS RANGING BETWEEN 83-89%. I INCREASED THE PATIENT TO 4L 02 AND PAGED RT FOR A BREATHING TREATMENT. WILL LEAVE PATIENT ON CONTINUOUS PULSE OX MONITOR AND CONTINUE TO ASSESS.
--- NOTE | 2017-03-12 00:35 | NUR ---
PATIENT RESTING IN BED WITH NO VISIBLE SIGNS OF DISTRESS. KAYCE LOPEZ AND I CHANGED THE PATIENT'S LINENS AND GOWN. PATIENT DENIES OTHER NEEDS AT THIS TIME. ADMINISTERED MEDS PER ORDERS. BED IN LOWEST POSITION AND CALL LIGHT WITHIN REACH. ENCOURAGED THE PATIENT TO CALL IF HE HAS NEEDS.
[2017-03-12 04:00] VITALS: BP 92/61
[2017-03-12 05:55] LABS: BASOPHILS 0.1 % (0-2); EOSINOPHILS 0.1 % (0-7); HEMATOCRIT 28.2 % (42.0-54.0); HEMOGLOBIN 9.2 g/dL (13.5-17.5); IMMATURE GRANULOCYTES 1.1 % (0-5); LYMPHOCYTES 7.8 % (15-50); MCH 28.8 pg (26.0-34.0); MCHC 32.6 g/dL (31.0-37.0); MCV 88.4 fL (80.0-100.0); MEAN PLATELET VOLUME 9.1 fL (7.4-10.4); NEUTROPHILS 84.9 % (40-80); PLATELET COUNT 281 10x3/uL (130-400); RBC 3.19 10x6/uL (4.20-6.10); RDW 16.5 % (11.5-14.5); WBC 22.3 10x3/uL (4.8-10.8)
[2017-03-12 06:05] LABS: ALBUMIN 1.6 g/dL (3.4-5.0); ALKALINE PHOSPHATASE 46 U/L (46-116); ALT (SGPT) 12 U/L (10-68); CALC OSMOLALITY 285 mosm/kg (275-300); CALCIUM 7.9 mg/dL (8.5-10.1); CARBON DIOXIDE 32.5 mmol/L (21.0-32.0); CHLORIDE - SERUM 104 mmol/L (98-107); CREATININE - SERUM 0.6 mg/dL (0.6-1.3); GLUCOSE 127 mg/dL (74-106); POTASSIUM - SERUM 3.4 mmol/L (3.5-5.1); PROTEIN - SERUM 4.5 g/dL (6.4-8.2); SODIUM 141 mmol/L (136-145); eGFR NON AFRICAN AMERICAN > 90 mL/min (90-120)
[2017-03-12 06:06] LABS: UREA NITROGEN 21 mg/dL (7-18)
--- NOTE | 2017-03-12 08:23 | NUR ---
PT SEEN EARILER. NO COMPLAINTS AT PRESNT. LEFT PORT NOTED WITH DRESSING INTACT. MIDLINE INCISION NOTED WITH TROY CLEAN DRY AND INTACT. USING URINAL AT BEDSIDE. NG NOTED TO LIS TO LEFT NARE-NO DRAINAGE NOTED. SCD ON BILAT. CALL LIGHT IN REACH
--- NOTE | 2017-03-12 08:31 | OP ---
PATIENT NAME: SYL BHAT MEDICAL RECORD: [id number] :50 LOCATION:[id number] ADMISSION DATE:03/04/17 SURGEON: GRACE BLANTON MD DATE OF OPERATION: 03/11/2017 SURGEON: Grace Blanton MD PREOPERATIVE DIAGNOSES: 1. Gastric outlet obstruction. 2. Metastatic lung cancer. 3. Pancreatic head mass. POSTOPERATIVE DIAGNOSES: 1. Gastric outlet obstruction. 2. Metastatic lung cancer. 3. Pancreatic head mass. PROCEDURE PERFORMED: Esophagogastroduodenoscopy with balloon dilatation. ANESTHESIA: Total intravenous anesthesia. COMPLICATIONS: None. SPECIMENS: None. Case was contaminated. OPERATIVE COURSE: After consent was obtained, the patient was taken to the endoscopy suite. A timeout was taken to confirm the correct patient and procedure. He was placed in the left lateral decubitus position. A bite block was placed. Hurricaine [place] was administered, total intravenous anesthesia was given. The scope was passed through the bite block and passed posterior to the epiglottis. 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 Scope was inserted through the esophagus and the stomach, approximately 6.3 liters of fluid was suctioned from the stomach through the scope. The gastrojejunostomy anastomosis appeared intact. Both lumens of the jejunostomy were intubated. The scope was advanced down the efferent limb. A guidewire was placed. At this time, I attempted to place a Bond nasal gastrojejunostomy over the wire, but was unsuccessful in getting the jejunostomy portion into the jejunum. At this time, the guidewire was removed and Bond gastrojejunostomy tube was removed. The balloon dilator was placed into the efferent limb. It was dilated to 27-[place]. The afferent limb was then intubated. It was also dilated to 27-[place]er. The anastomosis appeared intact and healthy. At this time, the balloon was removed and NG tube was placed under direct endoscopic vision into the stomach. The scope was removed and the procedure was terminated. At the end of the case, all needle and instrument counts were correct. No complications occurred. The patient extubated and transferred to PACU in stable condition. TRANSINT:[id number] Voice Confirmation ID: [id number] DOCUMENT ID: [id number] OPERATIVE REPORT [id number] SYL BHAT GRACE BLANTON MD at 0831 CC: [id number] DICTATION DATE: 03/11/172004 VISUAL EDUCATION TEACHER: 03/12/17 0140 ADM IN [facility] [address] [id number]
[2017-03-12 08:47] VITALS: BP 97/67
[2017-03-12 12:48] VITALS: BP 93/59
--- NOTE | 2017-03-12 14:34 | NUR ---
NUTRITION F/U CHART REVIEWED. REMAINS NPO. PROCALAMINE @ 100 CC/HR. PROVIDING 588 KCAL, 72 GM PROTEIN PER DAY. IF PT UNABLE TO START PO, RECOMMEND ADDING INTRALIPIDS. 250 CC//20% Q 48 HOURS FOR ADDITIONAL 250 KCAL/DAY. RD FOLLOWING
[2017-03-12 16:46] VITALS: BP 92/56
--- NOTE | 2017-03-12 16:48 | NUR ---
PT AMB IN HALLWAY WITH THERAPY. SITTING UP IN CHAIR. NG RECONNECTED AND APPROX 1400 GREEN LIQUID RETURN. PT HAD NO NAUSEA OR ABD PAIN. CALL LIGHT IN REACH
--- NOTE | 2017-03-12 19:50 | NUR ---
PATIENT RESTING IN BED AND DENIES NEEDS AT THIS TIME. BED IN LOWEST POSITION AND CALL LIGHT WITHIN REACH. ENCOURAGED THE PATIENT TO CALL IF HE HAS NEEDS.
[2017-03-12 20:00] VITALS: BP 90/57
[2017-03-13] VITALS: BP 89/60
[2017-03-13 04:00] VITALS: BP 91/50
[2017-03-13 06:45] LABS: ALBUMIN 1.5 g/dL (3.4-5.0); ALKALINE PHOSPHATASE 46 U/L (46-116); BILIRUBIN - TOTAL 0.76 mg/dL (0.2-1.3); CARBON DIOXIDE 35.5 mmol/L (21.0-32.0); CHLORIDE - SERUM 100 mmol/L (98-107); CREATININE - SERUM 0.5 mg/dL (0.6-1.3); GLUCOSE 141 mg/dL (74-106); PROTEIN - SERUM 4.5 g/dL (6.4-8.2); SODIUM 140 mmol/L (136-145); eGFR NON AFRICAN AMERICAN > 90 mL/min (90-120)
[2017-03-13 06:46] LABS: BASOPHILS 0.1 % (0-2); EOSINOPHILS 0.2 % (0-7); HEMATOCRIT 29.4 % (42.0-54.0); HEMOGLOBIN 9.4 g/dL (13.5-17.5); IMMATURE GRANULOCYTES 0.8 % (0-5); LYMPHOCYTES 6.5 % (15-50); MCH 28.7 pg (26.0-34.0); MCV 89.6 fL (80.0-100.0); MEAN PLATELET VOLUME 9.3 fL (7.4-10.4); MONOCYTES 7.6 % (2-11); NEUTROPHILS 84.8 % (40-80); PLATELET COUNT 284 10x3/uL (130-400); RBC 3.28 10x6/uL (4.20-6.10); RDW 16.2 % (11.5-14.5); WBC 19.5 10x3/uL (4.8-10.8)
[2017-03-13 06:47] LABS: ALT (SGPT) 8 U/L (10-68); CALC OSMOLALITY 280 mosm/kg (275-300); UREA NITROGEN 13 mg/dL (7-18)
--- NOTE | 2017-03-13 07:15 | NUR ---
REPORT RECEIVED, ASSUMED CARE OF PT. RESTING, EASILY AROUSED. NGT TO LIWS IN PLACE, PATENT, DRAINING. O2 VIA 2L IN PLACE. L PORT INFUSING ORDERED, DRSG C/D/I. NO NEEDS VOICED AT THIS TIME. BED IN LOWEST POSITION, SIDE RAILS UP X 2, CALL LIGHT WITHIN REACH.
[2017-03-13 07:35] LABS: PROTEIN - SERUM 4.5 g/dL (6.4-8.2)
[2017-03-13 08:05] VITALS: BP 90/61
[2017-03-13 11:20] LABS: FUNGUS STAIN Final report (())
[2017-03-13 12:04] VITALS: BP 196/63
[2017-03-13 16:23] VITALS: BP 100/68
[2017-03-13 20:00] VITALS: BP 100/65
--- NOTE | 2017-03-13 20:10 | NUR ---
AWAKE,ALERT. NO COMPLAINTS OF PAIN. COMMERCIAL LOAN ADMINISTRATOR MORPHINE IN USE FOR PAIN CONTROL. IV INFUSING TO LEFT PORT WITHOUT REDNESS OR EDEMA NOTED. NG TO LEFT NARE INTACT WITH LOW SUCTION. TROY INTACT TO ABD INCISION WIHTOUT REDNESS OR EDEMA. NO DRAINAGE NOTED. O2 AT 2L PER NC ON. NO DISTRESS NOTED. CL IN REACH.
[2017-03-14] VITALS: BP 93/61
--- NOTE | 2017-03-14 01:20 | NUR ---
RESTING QUIETLY. NO DISTRESS NOTED. CL IN REACH
--- NOTE | 2017-03-14 02:00 | NUR ---
PT IN BED WITH NO DISTRESS. RESPIRATIONS EVEN AND UNLABORED. SIDE RAILS X 2. BED LOW. CALL LIGHT IN REACH.
[2017-03-14 04:00] VITALS: BP 100/68
--- NOTE | 2017-03-14 05:49 | NUR ---
RESTING QUIETLY. NO DISTRESS NOTED. CL IN REACH
[2017-03-14 06:07] LABS: BASOPHILS 0.1 % (0-2); EOSINOPHILS 0.2 % (0-7); HEMATOCRIT 30.1 % (42.0-54.0); HEMOGLOBIN 9.7 g/dL (13.5-17.5); IMMATURE GRANULOCYTES 0.7 % (0-5); LYMPHOCYTES 8.7 % (15-50); MCH 28.9 pg (26.0-34.0); MCHC 32.2 g/dL (31.0-37.0); MCV 89.6 fL (80.0-100.0); MEAN PLATELET VOLUME 9.6 fL (7.4-10.4); MONOCYTES 8.9 % (2-11); NEUTROPHILS 81.4 % (40-80); PLATELET COUNT 317 10x3/uL (130-400); RBC 3.36 10x6/uL (4.20-6.10); RDW 16.2 % (11.5-14.5); WBC 16.2 10x3/uL (4.8-10.8)
[2017-03-14 06:43] LABS: ALBUMIN 1.5 g/dL (3.4-5.0); ALKALINE PHOSPHATASE 50 U/L (46-116); ALT (SGPT) 8 U/L (10-68); BILIRUBIN - TOTAL 0.83 mg/dL (0.2-1.3); CALC OSMOLALITY 279 mosm/kg (275-300); CHLORIDE - SERUM 97 mmol/L (98-107); CREATININE - SERUM 0.6 mg/dL (0.6-1.3); GLUCOSE 131 mg/dL (74-106); PROTEIN - SERUM 5.4 g/dL (6.4-8.2); SODIUM 139 mmol/L (136-145); UREA NITROGEN 12 mg/dL (7-18); eGFR NON AFRICAN AMERICAN > 90 mL/min (90-120)
[2017-03-14 07:18] LABS: POTASSIUM - SERUM 2.7 mmol/L (3.5-5.1)
--- NOTE | 2017-03-14 07:57 | NUR ---
AWAKE AND ALERT. ORIENTED X3. NO C/O AT THIS TIME. LUNGS ARE CLEAR BILATERALLY, NO COUGH NOTED. SKIN IS INTACT WITHOUT REDNESS EXCEPT INCISION TO MID ABDOMEN WHICH IS CLEAN AND DRY WITH CLIPS INTACT. NG TO RIGHT NARE IS PATENT WITH SMALL AMOUNT OF DARK DRAINAGE. SCD'S INPLACE. DENIES NEEDS.
[2017-03-14 08:38] VITALS: BP 95/64
--- NOTE | 2017-03-14 10:30 | NUR ---
UP TO BR WITH ONE PERSON MIN ASSIST. HAD MODERATE BM AT THIS TIME. SKIN CARE PER SELF. REPOSITIONED IN BED FOR COMFORT.
--- NOTE | 2017-03-14 12:00 | NUR ---
FSBS 112. NO COVERAGE REQUIRED.
[2017-03-14 12:59] VITALS: BP 104/63
[2017-03-14 15:11] LABS: MAGNESIUM - SERUM 1.9 mg/dL (1.8-2.4); PHOSPHOROUS 3.1 mg/dL (2.5-4.9)
[2017-03-14 15:52] VITALS: BP 102/66
--- NOTE | 2017-03-14 19:04 | NUR ---
RESTING QUIETLY. NO CHANGES NOTED. DENIES NEEDS.
[2017-03-14 21:49] VITALS: BP 102/67
[2017-03-15] VITALS (13 sets, daily range): BP systolic 78–116; BP diastolic 47–83
[2017-03-15 06:33] LABS: BASOPHILS 0.1 % (0-2); EOSINOPHILS 0.2 % (0-7); HEMATOCRIT 32.2 % (42.0-54.0); HEMOGLOBIN 10.2 g/dL (13.5-17.5); IMMATURE GRANULOCYTES 0.6 % (0-5); LYMPHOCYTES 9.6 % (15-50); MCH 28.6 pg (26.0-34.0); MCHC 31.7 g/dL (31.0-37.0); MCV 90.2 fL (80.0-100.0); MEAN PLATELET VOLUME 9.5 fL (7.4-10.4); MONOCYTES 10.4 % (2-11); NEUTROPHILS 79.1 % (40-80); PLATELET COUNT 314 10x3/uL (130-400); RBC 3.57 10x6/uL (4.20-6.10); RDW 15.8 % (11.5-14.5); WBC 13.9 10x3/uL (4.8-10.8)
[2017-03-15 06:52] LABS: ALBUMIN 1.6 g/dL (3.4-5.0); ALKALINE PHOSPHATASE 56 U/L (46-116); ALT (SGPT) 10 U/L (10-68); BILIRUBIN - TOTAL 0.99 mg/dL (0.2-1.3); CALC OSMOLALITY 275 mosm/kg (275-300); CALCIUM 8.2 mg/dL (8.5-10.1); CARBON DIOXIDE 36.8 mmol/L (21.0-32.0); CHLORIDE - SERUM 96 mmol/L (98-107); CREATININE - SERUM 0.6 mg/dL (0.6-1.3); GLUCOSE 138 mg/dL (74-106); MAGNESIUM - SERUM 1.8 mg/dL (1.8-2.4); PHOSPHOROUS 2.4 mg/dL (2.5-4.9); POTASSIUM - SERUM 3.5 mmol/L (3.5-5.1); PROTEIN - SERUM 5.9 g/dL (6.4-8.2); SODIUM 137 mmol/L (136-145); UREA NITROGEN 12 mg/dL (7-18); eGFR NON AFRICAN AMERICAN > 90 mL/min (90-120)
--- NOTE | 2017-03-15 08:20 | NUR ---
AWAKE AND ALERT. ORIENTED X3. NO C/O AT THIS TIME. ENCOURAGED TO USE CLINICAL IMPLEMENTATION SPECIALIST FOR PAIN MANAGEMENT. WILL MONITOR. LUNGS ARE CLEAR BILATERALLY, OCCASSIONAL DRY COUGH NOTED. SKIN IS INTACT WITHOUT REDNESS EXCEPT INCISION TO MID ABDOMEN WHICH IS CLEAN AND DRY WITH CLIPS INTACT. NG TO LEFT NARE PATENT WITH DARK DISCHARGE. LEFT PORT PATNET WITHOUT REDNESS AT INSERTION SITE. DENIES NEEDS.
--- NOTE | 2017-03-15 10:00 | NUR ---
OFF UNIT VIA BED TO SURGERY. FAMILY AWARE OF THIS.
--- NOTE | 2017-03-15 13:45 | NUR ---
RETURNED FROM SURGERY. WOUND VAC IN PLACE TO ABDOMEN. A/O X3. DENIES NEEDS. NOTIFIED PATIENT IN ROOM. GARCIA PATENT WITH CLEAR YELLOW URINE.
--- NOTE | 2017-03-15 15:14 | OP ---
PATIENT NAME: SYL BHAT MEDICAL RECORD: [id number] :50 LOCATION:[id number] ADMISSION DATE:03/04/17 SURGEON: GRACE BLANTON MD DATE OF OPERATION: 03/15/2017 SURGEON: Grace Blanton MD PREOPERATIVE DIAGNOSES: 1. Grossly metastatic nonsmall cell lung cancer. 2. Gastric outlet obstruction. 3. Pancreatic head mass. 4. Small-bowel obstruction. POSTOPERATIVE DIAGNOSES: 1. Grossly metastatic nonsmall cell lung cancer. 2. Gastric outlet obstruction. 3. Pancreatic head mass. 4. Small-bowel obstruction. 5. Carcinomatosis. PROCEDURE PERFORMED: Exploratory laparotomy, revision of loop gastrojejunostomy, placement of a gastrojejunostomy feeding tube, and placement of a wound VAC greater than 50 square cm. ANESTHESIA: General. COMPLICATIONS: None. SPECIMENS: None. Case was clean contaminated. OPERATIVE COURSE: After consent was obtained, the patient was taken to the operating room and placed in the supine position on the operating table. Next, general anesthesia was given via endotracheal intubation. Thereafter, a timeout was performed to confirm the correct patient and procedure. The abdomen was prepped and draped in typical sterile fashion. Ioban dressings were placed. The previous midline incision was opened using a 15 blade scalpel, a previous looped PDS suture was removed and upper midline abdominal incision was opened. Edmundo retractor was placed. Gentle lysis of adhesions was performed at the area of the previous gastrojejunostomy. The gastrojejunostomy was revised. The anastomosis was patent as was previously noted on the EGD, but the tremendous size of the pancreatic head mass was causing a duodenal obstruction and a small-bowel obstruction of the efferent limb of the gastrojejunostomy as well as significant displacement of the stomach. At this time, a Rojo entero enterostomy was performed with the BIRD linear cutting stapler. Next, a gastrotomy was created. Skin incision was made. The Bond gastrojejunostomy tube was passed through the abdominal wall and placed into the gastrotomy. The balloon was inflated. Then, #1 silk was used to create 2 layers of pursestring suture around the gastrostomy tube. The stomach was then pexy'd to the anterior abdominal wall using a 1-0 silk suture. The jejunostomy portion of the tubing was passed into the stomach. It was passed through the gastrojejunostomy and into the efferent limb of the jejunum. The common enterotomy was then closed using interrupted 3-0 silk suture. The suture line OPERATIVE REPORT [id number] SYL BHAT was imbricated using 3-0 silk suture. A LEESA drain was placed posterior to the anastomosis into the lesser sac through an incision in the right upper quadrant. At this time, the midline fascia was closed with #1 looped PDS. Once the fascia was closed, a wound VAC sponge was placed into the subcutaneous tissue approximately 15 cm in length x 4 cm in width x 3 cm in depth. He was placed in negative pressure wound therapy. The LEESA drain was connected to bulb suction. At the end of the case, all needle and instrument counts were correct. No complications occurred. The patient was extubated and transferred to the PACU in stable condition. TRANSINT:[id number] Voice Confirmation ID: [id number] DOCUMENT ID: [id number] GRACE BLANTON MD at 1514 CC: [id number] DICTATION DATE: 03/15/17 1220 SCHOOL COMMISSIONER: 03/15/17 1251 ADM IN [place] [id number] [place] [address]
[2017-03-16 04:00] VITALS: BP 128/85
[2017-03-16 07:05] LABS: HEMOGLOBIN 11.2 g/dL (13.5-17.5); MCH 28.7 pg (26.0-34.0); MCV 89.7 fL (80.0-100.0); MEAN PLATELET VOLUME 9.8 fL (7.4-10.4); PLATELET COUNT 387 10x3/uL (130-400); RDW 16.3 % (11.5-14.5); WBC 21.8 10x3/uL (4.8-10.8)
[2017-03-16 07:21] LABS: ALBUMIN 1.3 g/dL (3.4-5.0); ANION GAP 12.6 mmol/L (8-16); BILIRUBIN - TOTAL 1.9 mg/dL (0.2-1.3); CALCIUM 7.6 mg/dL (8.5-10.1); CARBON DIOXIDE 29.5 mmol/L (21.0-32.0); PROTEIN - SERUM 5.2 g/dL (6.4-8.2)
[2017-03-16 07:22] LABS: CREATININE - SERUM 1.3 mg/dL (0.6-1.3); POTASSIUM - SERUM 4.1 mmol/L (3.5-5.1)
[2017-03-16 07:28] LABS: LYMPHOCYTES 12 % (15-50); MONOCYTES 5 % (2-11); NEUTROPHILS 74 % (40-80); PLATELET ESTIMATE NORMAL; PLATELET MORPHOLOGY GIANT PLTS PRESENT
--- NOTE | 2017-03-16 07:45 | NUR ---
PATIENT RESTING QUIETLY ON HIS BACK. EYES ARE CLOSED. NO S/S OF DISTRESS NOTED. CALL LIGHT IN PATIENT'S REACH. WILL MONITOR PATIENT.
[2017-03-16 10:52] VITALS: BP 81/55
--- NOTE | 2017-03-16 11:39 | NUR ---
RD consult to start J tube feedings. Visted with pt. pt without c/o. pt is DM REC: Glucerna 1.5 @ 52cc/hr with 40cc water/hr as goal Can start Glucerna 1.5 at 10cc/hr increase q 6 hours until goal of 52cc/hr is reached and tolerated. Start water at 10cc/hr increase q 6 hours until goal of 40cc/hr is reached and tolerated. This will provide: 1872cal, 103 g pro, and 1907cc total of free water. Formula 947cc water Auto flush: 960cc water RD to follow Lindsay Jones, MS RD LD
--- NOTE | 2017-03-16 12:01 | NUR ---
CORRECTION TO TUBE FEED RECOMMENDATIONS will REC: start osmolite 1.5@ 10cc/hr with 10cc of water/hr. Increase by 10cc q 6 hours for fomula until goal of 52cc/hr is reached and tolerated Increase water by 10cc/hr until goal of 35 cc is reached and tolerated. This will provide: 1872cal, 72g pro, 1790cc (formula and auto flushes) Formula: 950cc water, Atuo flush 840cc water RD to follow Lindsay Jones MS RD LD
[2017-03-16 12:53] VITALS: BP 82/53
--- NOTE | 2017-03-16 18:28 | NUR ---
OSMOLITE 1.5 CALORIE TUBE FEEDING STARTED AT 10 CC/HR WITH 10 CC WATER/HR. PATIENT TOLERATED WELL.
[2017-03-16 20:00] VITALS: BP 81/52
--- NOTE | 2017-03-16 20:06 | NUR ---
REST QUIETLY IN BED, CALL LIGHT IN REACH.
--- NOTE | 2017-03-16 22:05 | NUR ---
EMPTY DRANAGE BAG, 80ML.
--- NOTE | 2017-03-16 23:52 | NUR ---
CHECK PT FSBS IS 144.
[2017-03-17] VITALS: BP 96/68
--- NOTE | 2017-03-17 00:50 | NUR ---
REST IN BED, EYE CLOSE, CALL LIGHT IN REACH.
[2017-03-17 04:00] VITALS: BP 96/65
[2017-03-17 05:53] LABS: BASOPHILS 0.1 % (0-2); EOSINOPHILS 0.1 % (0-7); HEMOGLOBIN 10.6 g/dL (13.5-17.5); IMMATURE GRANULOCYTES 1.6 % (0-5); LYMPHOCYTES 4.7 % (15-50); MCH 28.5 pg (26.0-34.0); MCHC 32.1 g/dL (31.0-37.0); MCV 88.7 fL (80.0-100.0); MEAN PLATELET VOLUME 9.7 fL (7.4-10.4); MONOCYTES 7.4 % (2-11); NEUTROPHILS 86.1 % (40-80); PLATELET COUNT 456 10x3/uL (130-400); RBC 3.72 10x6/uL (4.20-6.10); RDW 16.3 % (11.5-14.5); WBC 28.9 10x3/uL (4.8-10.8)
[2017-03-17 06:08] LABS: ALBUMIN 1.3 g/dL (3.4-5.0); ALKALINE PHOSPHATASE 75 U/L (46-116); BILIRUBIN - TOTAL 1.75 mg/dL (0.2-1.3); CALCIUM 7.8 mg/dL (8.5-10.1); CARBON DIOXIDE 28.4 mmol/L (21.0-32.0); CHLORIDE - SERUM 100 mmol/L (98-107); GLUCOSE 170 mg/dL (74-106); POTASSIUM - SERUM 4.2 mmol/L (3.5-5.1); PROTEIN - SERUM 4.7 g/dL (6.4-8.2); SODIUM 136 mmol/L (136-145); eGFR NON AFRICAN AMERICAN 79 mL/min (90-120)
[2017-03-17 06:09] LABS: ALT (SGPT) 16 U/L (10-68); CALC OSMOLALITY 282 mosm/kg (275-300); UREA NITROGEN 32 mg/dL (7-18)
--- NOTE | 2017-03-17 07:15 | NUR ---
PATIENT RESTING IN BED. PATIENT IS AWAKE, ALERT, AND ORIENTED X4. RESPIRATORY THERAPIST IN PATIENT'S ROOM. PATIENT RECEIVING A BREATHING TREATMENT. PATIENT DENIES ANY NEEDS AT PRESENT TIME. CALL LIGHT IN PATIENT'S REACH. WILL MONITOR PATIENT.
[2017-03-17 11:04] VITALS: BP 98/62
[2017-03-17 13:32] VITALS: BP 93/59
--- NOTE | 2017-03-17 13:48 | NUR ---
PATIENT RESTING ON HIS BACK. EYES ARE CLOSED. RESPIRATIONS ARE EVEN AND UNLABORED. CALL LIGHT IN PATIENT'S REACH. WILL MONITOR PATIENT.
--- NOTE | 2017-03-17 19:31 | NUR ---
PATIENT RESTING IN BED WITH C/O 7/10 PAIN. BROUGHT PATIENT WATER PER HIS REQUEST. PATIENT DENIES OTHER NEEDS AT THIS TIME. BED IN LOWEST POSITION AND CALL LIGHT WITHIN REACH. ENCOURAGED THE PATIENT TO CALL IF HE HAS NEEDS.
[2017-03-17 20:00] VITALS: BP 144/97
--- NOTE | 2017-03-17 20:05 | NUR ---
THE PATIENT'S ROOM WAS VERY WARM. THE PATIENT REQUESTED THAT I TURN OFF THE HEAT. I TURNED THE PATIENT'S AIR ON LOW TO COOL OFF THE ROOM
--- NOTE | 2017-03-17 20:07 | NUR ---
PAGED DR. BLANTON IN REGARDS TO THE PATIENT HAVING NAUSEA AND VOMITING. PATIENT HAD APROX 350ML OF DARK BROWN EMESIS.
--- NOTE | 2017-03-17 20:30 | NUR ---
PATIENT RESTING IN BED WITH NO VISIBLE SIGNS OF DISTRESS. I ASKED THE PATIENT IF HE WAS STILL EXPERIENCING NAUSEA. THE PATIENT STATED, "NO, I THINK I WAS JUST REALLY HOT. I THINK I AM OK NOW"
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
--- NOTE | 2017-03-17 22:41 | NUR ---
223) RABIA MCQUEEN CAME OUT OF PATIENT'S ROOM, HE STATED "VANNESSA 2238 IS JOHANA'S PATIENT BUT SHE ISN'T OUT HERE AND THE PATIENT SAID HE IS SHORT OF BREATH. I JUST CHECKED HIS VITAL SIGNS AND HIS OXYGEN SATURATION WAS 94% HIS HEART RATE IS 150." WENT IN PATIENT'S ROOM, HE WAS SPITTING UP EMESIS INTO AN EMESIS BAG. I STATED "ARE YOU FEELING SHORT OF BREATH?" PATIENT STATED "YES." I STATED "ARE YOU HAVING CHEST PAIN?" HE STATED "NO." I STATED "HOW LONG HAVE YOU BEEN FEELING SHORT OF BREATH?" HE STATED "JUST A FEW MINUTES AGO." AUSCULTATED LUNGS, CRACKLES HEARD THROUGHOUT ALL LUNG BRYAN. TRIED TO GET OXYGEN SATURATION, FINGERS COLD, NOT PICKING UP A READING. CALLED RICHAR TO COME BACK IN AND TRY WITH HIS MACHINE. CALLED TELEMETRY THE NUCLEAR RADIATION ENGINEER SAID "HE IS 140, SINUS T[place]. HE HAS BEEN RUNNING IN THE 140S ALL DAY." I STATED "WHAT ABOUT YESTERDAY?" SHE STATED "YES, YESTERDAY TOO." 2234) JOHANA WALKED BY, CALLED HER TO COME IN. NOTIFIED HER THAT THE PATIENT IS SAYING HE FEELS SHORT OF BREATH, AND I AUSCULTATED CRACKLES. ASKED PATIENT IF HE HAS CHF, HE STATED "YES." JOHANA HOOKED UP CONTINUOUS PULSE OX, NOT PICKING UP, SHE STATED "I AM GOING TO PAGE , CAN YOU TRY TO GET A READING ON THE PULSE OX?" I STATED "YES. 2237) PATIENT STARTED TO VOMIT LARGE AMOUNTS INTO EMESIS BAG. PUT THE HOB ALL THE WAY UP, GOT PATIENT A WASH CLOTH, STARTED TO WASH HIS FACE, HE THEN LEANED FORWARD AND STARTED TO VOMIT INTO THE BAG. HE SUDDENLY LOOKED UP, HIS EYES FIXED AND HE LEANED BACK ONTO THE BED, I CALLED HIS NAME AND HIS EYES DID NOT MOVE. VOMIT STARTED SPRAYING OUT HIS MOUTH. I CALLED FOR JOHANA TO BRING SUCTION AND I CALLED A RAPID RESPONSE. I LEANED HIM FORWARD HE VOMITED. CHECKED FOR A CAROTID PULSE, FELT A WEAK PULSE THE RAPID RESPONSE TEAM WAS ENTERING. 223)NO LONGER FELT PULSE, CALLED A CODE BLUE.
--- NOTE | 2017-03-17 23:24 | NUR ---
CALLED [facility] TO NOTIFY THEM OF THE PATIENT'S
--- NOTE | 2017-03-18 00:13 | NUR ---
NOTIFIED NANI COLES OF THE PATIENT'S PASSING
--- NOTE | 2017-03-18 01:23 | NUR ---
[facility]
[2017-04-08 07:08] LABS: FUNGUS MYCOLOGY CULTURE Final report (())
== END 2017-03-18 01:24 | DRG 326 ==
LOC: D.ER 11:59 → D.MS 18:18
PROVIDERS: Emergency Medicine; Family Medicine; Internal Medicine Pulmonary Disease; Radiology Diagnostic Radiology; Surgery; ADMIT Family Medicine
PROC: 0D160ZA Bypass Stomach to Jejunum, Open Approach (ICD-10-PCS; 2017-03-07)
PROC: 0DNW4ZZ Release Peritoneum, Percutaneous Endoscopic Approach (ICD-10-PCS; principal; 2017-03-07 10:30)
PROC: 0D768ZZ Dilation of Stomach, Via Natural or Artificial Opening Endoscopic (ICD-10-PCS; 2017-03-11)
PROC: 0D7A8ZZ Dilation of Jejunum, Via Natural or Artificial Opening Endoscopic (ICD-10-PCS; 2017-03-11)
PROC: 0W9B3ZZ Drainage of Left Pleural Cavity, Percutaneous Approach (ICD-10-PCS; 2017-03-11)
PROC: 0D164ZA Bypass Stomach to Jejunum, Percutaneous Endoscopic Approach (ICD-10-PCS; 2017-03-15)
DX: K31.1 Adult hypertrophic pyloric stenosis (principal); J18.9 Pneumonia, unspecified organism; C34.92 Malignant neoplasm of unspecified part of left bronchus or lung; C25.9 Malignant neoplasm of pancreas, unspecified; C79.89 Secondary malignant neoplasm of other specified sites; J44.1 Chronic obstructive pulmonary disease with (acute) exacerbation; I50.32 Chronic diastolic (congestive) heart failure; K22.2 Esophageal obstruction; E11.9 Type 2 diabetes mellitus without complications; I95.81 Postprocedural hypotension; I95.9 Hypotension, unspecified; I11.0 Hypertensive heart disease with heart failure; K21.9 Gastro-esophageal reflux disease without esophagitis; R00.0 Tachycardia, unspecified